=== PATIENT | male | born 1960 | race Caucasian/White ===

== ENCOUNTER 2022-12-13 06:44 | Outpatient (OUT) | payer MEDICARE, MEDICAID, SELFPAY ==
[2022-12-13 07:22] LABS: Estimated Average Glucose 157 mg/dL; Glycohemoglobin A1C 7.1 % (4.5-6.2)
== END 2022-12-13 06:45 | disposition home or self-care (01) ==
PROVIDERS: PCP Family Medicine; Visit Provider Family Medicine
DX: E11.9 Type 2 diabetes mellitus without complications (principal)
CPT/HCPCS: 36415; 83036

== ENCOUNTER 2023-03-14 07:47 | Outpatient (OUT) | payer MEDICARE, MEDICAID, SELFPAY ==
[2023-03-14 08:13] LABS: Basophils Absolute Auto 0.1 10^3/uL (0.0-0.1); Eosinophils Absolute Auto 0.2 10^3/uL (0.0-0.7); Eosinophils Percent Auto 1.8 % (0.9-7.0); Hematocrit 37.7 % (42.0-54.0); Immature Granulocytes Abs Auto 0.02 10^3/uL (0.00-0.03); Immature Granulocytes Pct Auto 0.2 % (0.0-0.5); Lymphocytes Percent Auto 21.7 % (20.5-60.0); Mean Corpuscular HGB Conc 31.8 g/dL (29.9-35.2); Mean Corpuscular Volume 91.1 fL (80.0-94.0); Mean Platelet Volume 8.1 fL (9.5-13.5); Monocytes Absolute Auto 0.9 10^3/uL (0.3-0.8); Monocytes Percent Auto 9.7 % (1.7-12.0); Neutrophils Absolute Auto 5.9 10^3/uL (1.4-6.5); Neutrophils Percent Auto 65.6 % (43.0-75.0); Platelet Count 462 10^3/uL (150-450); Red Blood Count 4.14 10^6/uL (4.70-6.10); Red Cell Distribution Width 12.6 % (11.0-15.0); White Blood Count 9.1 10^3/uL (4.0-11.0)
[2023-03-14 09:04] LABS: Anion Gap 15.2; BUN Creatinine Ratio 17.5; Calcium 8.8 mg/dL (8.5-10.1); Carbon Dioxide 26.2 mmol/L (21.0-32.0); Chloride 103 mmol/L (98-107); Estimated GFR (African America >60 (>=60); Estimated GFR (Non-African Ame 58 (>=60); Glucose 101 mg/dL (74-106); Magnesium 2.2 mg/dL (1.8-2.4); Potassium 4.4 mmol/L (3.5-5.1); Sodium 140 mmol/L (136-145)
== END 2023-03-14 07:48 | disposition home or self-care (01) ==
PROVIDERS: PCP Family Medicine; Visit Provider Nurse Practitioner
DX: R42 Dizziness and giddiness (principal); I10 Essential (primary) hypertension; I48.91 Unspecified atrial fibrillation
CPT/HCPCS: 36415; 80048; 83735; 85025

== ENCOUNTER 2023-04-22 07:01 | Outpatient (RCR) | payer OTHER, MEDICAID, SELFPAY ==
--- NOTE | 2023-04-04 15:04 | CR1_ITS ---
[facility] Test Date: 2023-04-04 Pat Name: ROXANN JOHNSON Department: Room: - Gender: Male [employer]: : [id number] Requested By: THUY MCGREGOR Order Number: [id number] Lyndsey MD: THUY MCGREGOR Interpretive Statements Session Date: Electronically Signed On 04-05-2023 12:13:38 EST by THUY MCGREGOR
== END 2023-04-22 12:53 | disposition home or self-care (01) ==
LOC: CR 07:01
PROVIDERS: PCP Family Medicine; Visit Provider Internal Medicine
DX: I71.21 Aneurysm of the ascending aorta, without rupture (principal); Z95.2 Presence of prosthetic heart valve
CPT/HCPCS: 93798

== ENCOUNTER 2023-04-24 01:37 | Outpatient (RCR) | payer OTHER, SELFPAY | END 2023-05-22 17:32 | disposition home or self-care (01) | LOC: MM 01:37 | PROVIDERS: PCP Family Medicine; Visit Provider Internal Medicine | DX: Z51.81 Encounter for therapeutic drug level monitoring (principal); Z79.01 Long term (current) use of 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; Z95.2 Presence of prosthetic heart valve | CPT/HCPCS: 85610; G0463 ==

== ENCOUNTER 2023-05-23 03:39 | Outpatient (RCR) | payer OTHER, SELFPAY | END 2023-06-20 14:16 | disposition home or self-care (01) | LOC: MM 03:39 | PROVIDERS: PCP Family Medicine; Visit Provider Internal Medicine | DX: Z51.81 Encounter for therapeutic drug level monitoring (principal); Z79.01 Long term (current) use of 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; Z95.2 Presence of prosthetic heart valve | CPT/HCPCS: 85610; G0463 ==

== ENCOUNTER 2023-06-23 00:27 | Outpatient (RCR) | payer OTHER, SELFPAY | END 2023-07-22 18:03 | disposition home or self-care (01) | LOC: MM 00:27 | PROVIDERS: PCP Family Medicine; Visit Provider Internal Medicine | DX: Z51.81 Encounter for therapeutic drug level monitoring (principal); Z79.01 Long term (current) use of 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; Z95.5 Presence of coronary angioplasty implant and graft; Z95.2 Presence of prosthetic heart valve | CPT/HCPCS: 85610; G0463 ==

== ENCOUNTER 2023-07-09 09:20 | Outpatient (OUT) | payer OTHER, SELFPAY ==
--- OUTSIDE RECORDS SUMMARY | 2023-07-09 09:46 | XMS_ITS | CCD ---
Author Organization [facility] Care Team Providers Care Forensic Specialist Name Role Phone Unknown, Referring Provider Unavailable Unav ailable Unavailable Unavailable Reginaldo, Eugene Wills Unavailable SHAIKH Imelda ORTEGA Admitting Unavailable SHAIKH Imelda ORTEGA Attending Unavailable NADEREEric, DR EUGENE Wills Primary Care Unavailable SHAIKH Imelda ORTEGA Consulting Unavailable NEFCYCECILIO Consulting Unavailable NADSUE, DR EUGENE Wills Admitting Unavailable NADERER, DR EUGENE Wills Attending Unavailable NADERER, DR EUGENE Wills Primary Care Unavailable NADERER, DR EUGENE Wills Consulting Unavailable TRABOULSSI, DR FISHER Admitting Unavailab le TRABOULSSI, DR FISHER Attending Unavailab le NADERER, DR EUGENE Wills Primary Care Unavailable TRABOULSSI, DR FISHER Consulting Unavailab le NADERER, DR EUGENE Wills Admitting Unavailable NADERER, DR EUGENE Wills Attending Unavailable NADERER, DR EUGENE Wills Primary Care Unavailable NADERER, DR EUGENE Wills Consulting Unavailable MISC, DR PHAN Admitting Unavailable MISC, DR PHAN Attending Unavailable NADEREEric, DR EUGENE Wills Primary Care Unavailable [place], DR ADRI Hernandez Consulting Unavailable GLENROY .KATE Consulting Unavailable DEL VALLE ., DR AILYN Simpson Admitting Unavailable DEL VALLE ., DR AILYN Simpson Attending Unavailable NADERER, DR EUGENE Wills Primary Care Unavailable TIM .KATE Consulting Unavailable DEL VALLE ., DR AILYN Simpson Admitting Unavailable DEL VALLE ., DR AILYN iSmpson Attending Unavailable NADEREEric, DR EUGENE Wills Primary Care Unavailable DEL VALLE ., DR AILYN Simpson Consulting Unavailable DEL VALLE ., DR AILYN Simpson Admitting Unavailable DEL VALLE ., DR AILYN Simpson Attending Unavailable NADERER, DR EUGENE Wills Primary Care Unavailable TIM ., KATE Consulting Unavailable Traboulssi, Dr. iFsher Attending Unavaila ble Naderer, Dr. Eugene Barraza Primary Care Chelovai lable Logan, Dr. Fisher Referring Unavaila ble Traboulssi, Dr. Fisher Attending Unavaila ble Naderer, Dr. Eugene Barraza Primary Care Unavai lable Traboulcheco, Dr. Fisher Referring Unavaila ble Traboulssi, Dr. Fisher Attending Unavaila ble Naderer, Dr. Eugene Barraza Primary Care Chelovamarcus lable Logan, Dr. Fisher Referring Unavaila ble Naderer, Dr. Eugene Barraza Primary Care Chelovai lable Trabuziel, Dr. Fisher Attending Unavaila ble Traboulssi, Dr. Fisher Referring Unavaila ble Traboulssi, Dr. Fishre Referring Unavaila ble UNKNOWN, PCP Primary Care Unavailable Traboulssi, Dr. Fisher Attending Unavaila ble Naderer Eugene MENDES Primary Care Provider MATTHEW HOOD Attending EUGENE Norman Referring EUGENE Norman Primary Care Unavailable EUGENE MARISCAL Primary Care Physician EUGENE MARISCAL Attending Unavailable EUGENE MARISCAL Attending Unavailable FREDDY MCLEOD Attending Unavailable Medications Current Medications Medication Drug Class(es) Dates Sig (Normalized) Sig (Original) allopurinol 100 mg oral tablet (20 sources) Xanthine Oxidase Inhibitor Start: 01-25-2019 take 1 tablet by mouth once daily allopurinol 100 mg Tab 100 mg = 1 tab(s), Oral, Daily, Refills(s) 0 Start Date: 10/26/19 Status: Ordered aspirin 81 mg delayed release oral tablet (6 sources) Platelet Aggregation Inhibitor, Nonsteroidal Anti-inflammatory Drug Start: 10-26-2019 take 1 tablet by mouth once daily aspirin 81 mg Oral EC Tab 81 mg = 1 tab(s), Oral, Daily, Refills(s) 0 Start Date: 10/26/19 Status: Ordered carvedilol 6.25 mg oral tablet (3 sources) alpha-Adrenergic Etta, beta-Adrenergic Etta Start: 03-28-2023 take 1 tablet by mouth in the morning, then take 1 tablet by mouth at bedtime carvediloL (COREG) 6.25 mg tablet Take 1 tablet (6.25 mg total) by mouth in the morning and 1 tablet (6.25 mg total) before bedtime. 180 tablet 3 03/28/2023 Active glipiZIDE er 5 mg 24 hr extended release oral tablet (12 sources) Sulfonylurea take 1 tablet by mouth every twenty-four hours in the morning glipiZIDE (GLUCOTROL XL) 5 mg 24 hr tablet Take 1 tablet (5 mg total) by mouth in the morning. 0 Active take 1 tablet by mouth once robert y glipiZIDE 5 MG Oral Tablet TAKE 1 TABLET DAILY DIRECTED. Quantity: 0 Refills: 0 Ordered: 16-Oct-2021 DO Active lisinopril 40 mg oral tablet (16 sources) Angiotensin Converting Enzyme Inhibitor Start: 10-26-2019 take 1 tablet by mouth once daily lisinopril 40 mg Tab 40 mg = 1 tab(s), Oral, Daily, Refills(s) 0 Start Date: 10/26/19 Status: Ordered 24 hr metFORMIN hydrochloride 500 mg extended release oral tablet (20 sources) Biguanide Start: 12-11-2022 take 1 tablet by mouth every twenty-four hours in the morning metFORMIN XR (GLUCOPHAGE XR) 500 mg 24 hr tablet Take 1 tablet (500 mg total) by mouth in the morning. 0 12/11/2022 Active Start: 01-19-2021 MetFORMIN (Eqv -Fortamet) 500 mg oral tablet, extended release Refills(s) 0 Start Date: 01/19/21 Status: Ordered Start: 12-08-2019 take 1 tablet by tatianna th every twenty-four hours metFORMIN HCl ER 500 MG Oral Tablet Extended Release 24 Hour Quantity: 30 Refills: 0 Ordered: 06-May-2020 DO Start : 08-Dec-2019 Complete ONETOUCH ULTRA2 METER misc (5 sources) Start: 12-08-2019 ONETOUCH ULTRA 2 METER misc USE TO CHECK GLUCOSE ONCE DAILY 0 12/08/2019 Active warfarin sodium 4 mg oral tablet (10 sources) Vitamin K Antagonist Start: 03-04-2023 take 1 tablet by mouth once daily warfarin (COUMADIN) 4 mg tablet 4 milligrams p.o. daily, check PT INR as directed, dose may vary 60 tablet 0 03/04/2023 Active Start: 12-02-2019 Warfarin Sodiu m 5 MG Oral Tablet Quantity: 60 Refills: 0 Ordered: 31-Jan-2020 DO Start : 02-Dec-2019 Complete Start: 10-26-2019 warfarin 5 mg Tab See Instructions, Refills(s) 0 Start Date: 10/26/19 Status: Ordered Completed/Discontinued Medications Medication Drug Class(es) Dates Sig (Normalized) Sig (Original) acetaminophen 325 mg / HYDROcodone bitartrate 5 mg oral tablet (4 sources) Opioid Agonist Start: 08-23-2020 HYDROcodone-Acetami nophen 5-325 MG Oral Tablet Quantity: 20 Refills: 0 Ordered: 23-Aug-2020 DO Start : 23-Aug-2020 Complete amiodarone hydrochloride 200 mg oral tablet (3 sources) Antiarrhythmic Start: 03-04-2023 End: 04-09-2023 take 2 tablets by mouth twice daily, then take 1 tablet by mouth once daily amiodarone (PACERONE) 200 mg tablet Take 2 tablets (400 mg total) by mouth 2 (two) times a day for 6 days, THEN 1 tablet (200 mg total) daily for 30 days. 54 tablet 0 03/04/2023 03/28/2023 Discontinued (Dose adjustment) End: 03-28-2023 take 1 tablet by mouth in the morning amiodarone (PACERONE) 200 mg tablet Take 1 tablet (200 mg total) by mouth in the morning. 0 03/28/2023 Discontinued amoxicillin 500 mg / clavulanate 125 mg oral tablet (4 sources) Penicillin-class Antibacterial Start: 09-14-2020 Amoxicillin-Pot Clavulanate 500-125 MG Oral Tablet Quantity: 42 Refills: 0 Ordered: 14-Sep-2020 DO Start : 14-Sep-2020 Complete apixaban 5 mg oral tablet (15 sources) Factor Xa Inhibitor Start: 02-18-2022 take 1 tablet by mouth twice daily Eliquis 5 MG Oral Tablet TAKE 1 TABLET BY MOUTH TWICE DAILY Quantity: 180 Refills: 3 Ordered: 21-May-2022 Phillip Ford MD Start : 18-Feb-2022 Active take 1 tablet by mouth twice cindy ly Eliquis 5 MG Oral Tablet TAKE 1 TABLET BY MOUTH TWICE DAILY. Quantity: 180 Refills: 3 Ordered: 26-Feb-2021 Phillip Ford MD Active atenolol 100 mg oral tablet (20 sources) beta-Adrenergic Etta Start: 09-12-2022 take 1 tablet by mouth once daily Atenolol 100 MG Oral Tablet TAKE 1 TABLET DAILY. Quantity: 90 Refills: 3 Ordered: 12-Sep-2022 Phillip Ford MD Start : 12-Sep-2022 Active CORRECT ORDER IS 100 MG TABLET REDUCE FROM 150 MG TO100 MG Start: 12-24-2019 Atenolol 50 MG Oral Tablet Quantity: 60 Refills: 0 Ordered: 24-Apr-2020 DO Start : 24-Dec-2019 Complete Start: 10-26-2019 take 1 tablet by tatianna th in the morning, then take 0.5 tablet by mouth in the evening Atenolol 100 MG Oral Tablet take 1 tablet in the am and 1/2 tablet in the pm Quantity: 135 Refills: 3 Ordered: 10-Jul-2022 Phillip Ford MD Start : 10-Jul-2022 Active 1 in am and 1/2 in pm atorvastatin 10 mg oral tablet (19 sources) HMG-CoA Reductase Inhibitor Start: 06-20-2021 take 1 tablet by mouth once daily Atorvastatin Calcium 10 MG Oral Tablet take 1 tablet by mouth once daily Quantity: 90 Refills: 3 Ordered: 12-Jun-2022 Phillip Ford MD Start : 20-Jun-2021 Active benzonatate 200 mg oral capsule (4 sources) Non-narcotic Antitussive Start: 04-13-2020 Benzonatate 200 MG Oral Capsule Quantity: 30 Refills: 0 Ordered: 14-Apr-2020 DO Start : 13-Apr-2020 Complete betamethasone 0.5 mg/ml / clotrimazole 10 mg/ml topical cream (4 sources) Azole Antifungal, Corticosteroid Start: 01-04-2021 Clotrimazole-Betame thasone 1-0.05 % External Cream Quantity: 15 Refills: 0 Ordered: 04-Jan-2021 DO Start : 04-Jan-2021 Complete cefdinir 300 mg oral capsule (4 sources) Cephalosporin Antibacterial Start: 03-30-2020 Cefdinir 300 MG Oral Capsule Quantity: 20 Refills: 0 Ordered: 30-Mar-2020 DO Start : 30-Mar-2020 Complete cholecalciferol 0.05 mg oral capsule (8 sources) Vitamin D take 1 capsule by mouth once daily Vitamin D3 50 MCG (2000 UT) Oral Capsule TAKE 1 CAPSULE Daily Quantity: 0 Refills: 0 Ordered: 12-Jan-2021 DO Active cyclobenzaprine hydrochloride 10 mg oral tablet (4 sources) Muscle Relaxant Start: 09-14-2020 Cyclobenzaprine HCl - 10 MG Oral Tablet Quantity: 60 Refills: 0 Ordered: 14-Sep-2020 DO Start : 14-Sep-2020 Complete ibuprofen 600 mg oral tablet (8 sources) Nonsteroidal Anti-inflammatory Drug Start: 09-14-2020 Ibuprofen 600 MG Oral Tablet Quantity: 30 Refills: 0 Ordered: 14-Sep-2020 DO Start : 14-Sep-2020 Complete Start: 08-23-2020 Ibuprofen 800 MG Oral Tablet Quantity: 30 Refills: 0 Ordered: 23-Aug-2020 DO Start : 23-Aug-2020 Complete lidocaine 40 mg/ml topical cream (4 sources) Antiarrhythmic, Amide Local Anesthetic Start: 09-14-2020 Lidocaine 4 % External Cream Quantity: 30 Refills: 0 Ordered: 23-Sep-2020 DO Start : 14-Sep-2020 Complete metoprolol tartrate 50 mg oral tablet (2 sources) beta-Adrenergic Etta Start: 03-04-2023 End: 04-03-2023 take 1 tablet by mouth in the morning, then take 1 tablet by mouth at bedtime metoprolol tartrate (LOPRESSOR) 50 mg tablet Take 1 tablet (50 mg total) by mouth in the morning and 1 tablet (50 mg total) before bedtime. Do all this for 30 days. 60 tablet 0 03/04/2023 03/28/2023 Discontinued omeprazole 20 mg delayed release oral capsule (6 sources) Proton Pump Inhibitor Start: 10-26-2019 take 1 capsule by mouth once daily predniSONE 50 mg oral tablet (4 sources) Start: 05-01-2020 predniSONE 50 MG Oral Tablet Quantity: 5 Refills: 0 Ordered: 01-May-2020 DO Start : 01-May-2020 Complete Problems Active Problems Problem Classification Problem Date Documented Date Episodic/Chronic Abdominal hernia (5 sources) Umbilical hernia; Translations: [Umbilical hernia without obstruction or gangrene] Onset: 02-27-2023 02-27-2023 Episodic Aortic; peripheral; and visceral artery aneurysms (20 sources) Dilatation of aorta; Translations: [Aortic ectasia, unspecified site] Onset: 11-19-2022 Resolved: 03-28-2023 11-19-2022 Chronic Cardiac dysrhythmias (20 sources) Paroxysmal atrial fibrillation; Translations: [Atrial fibrillation] Onset: 04-16-2019 Resolved: 05-08-2023 02-27-2023 Chronic Cardiac dysrhythmias (13 sources) Sinus bradycardia; Translations: [Other specified cardiac dysrhythmias] Episodic Diabetes mellitus with complications (4 sources) Type 2 diabetes mellitus with hyperglycemia; Translations: [TYPE 2 DM W/HYPERGLYCEMIA] Onset: 06-11-2022 Chronic Diabetes mellitus without complication (8 sources) Diabetes mellitus; Translations: [Diabetes mellitus without mention of complication, type II or unspecified type, not stated as uncontrolled] Chronic Disorders of lipid metabolism (11 sources) Hyperlipidemia; Translations: [Other and unspecified hyperlipidemia] Onset: 10-17-2021 Chronic Esophageal disorders (6 sources) Gastroesophageal reflux disease; Translations: [Gastro-esophageal reflux disease without esophagitis] Onset: 04-25-2017 02-27-2023 Chronic Essential hypertension (20 sources) Benign essential hypertension; Translations: [Benign essential hypertension] Onset: 04-25-2017 02-27-2023 Chronic Gout and other crystal arthropathies (20 sources) Gout; Translations: [Gout, unspecified] Onset: 04-25-2017 02-27-2023 Chronic Heart valve disorders (13 sources) Aortic incompetence, non-rheumatic ; Translations: [Nonrheumatic aortic (valve) insufficiency] Onset: 11-19-2022 Resolved: 05-08-2023 12-09-2022 Chronic Nutritional deficiencies (6 sources) Vitamin D deficiency; Translations: [Vitamin D deficiency, unspecified] Onset: 04-25-2017 02-27-2023 Chronic Osteoarthritis (11 sources) Unilateral primary osteoarthritis, right hip; Translations: [Osteoarthritis] Onset: 04-25-2017 Chronic Other aftercare (15 sources) Drug therapy finding; Translations: [Long-term (current) use of other medications] Episodic Other aftercare (1 source) 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; Translations: [OTH INSTRUMENT TECHNICIAN HELPER CURRENT DRUG THERAPY] Onset: 06-15-2022 Episodic Other aftercare (6 sources) Long-term current use of anticoagulant; Translations: [terminal supervisor (current) use of 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] Onset: 02-27-2023 02-27-2023 Episodic Other aftercare (1 source) senior living (current) use of 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; Translations: [senior living (current) use of 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] Onset: 02-27-2023 Episodic Other injuries and conditions due to external causes (5 sources) At low risk for fall; Translations: [History of falling] Onset: 02-27-2023 02-27-2023 Episodic Other lower respiratory disease (4 sources) Respiratory disorder, unspecified; Translations: [RESPIRATORY DISORDER UNSPECIFIED] Onset: 03-19-2022 Episodic Other nervous system disorders (4 sources) Other specified mononeuropathies; Translations: [OTHER SPECIFIED MONONEUROPATHIES] Onset: 07-13-2021 Chronic Other nutritional; endocrine; and metabolic disorders (20 sources) Body mass index 30+ - obesity; Translations: [Obesity, unspecified] Onset: 02-27-2023 02-27-2023 Chronic Other nutritional; endocrine; and metabolic disorders (7 sources) Obesity; Translations: [Obesity, unspecified] Chronic Other nutritional; endocrine; and metabolic disorders (1 source) Obesity, unspecified; Translations: [OBESITY UNSPECIFIED] Onset: 06-15-2022 Chronic Other nutritional; endocrine; and metabolic disorders (1 source) Body mass index (BMI) 30.0-30.9, adult; Translations: [BODY MASS INDEX BMI 30.0-30.9 ADULT] Onset: 06-15-2022 Chronic Other screening for suspected conditions (not mental disorders or infectious disease) (1 source) Encounter for screening for malignant neoplasm of prostate; Translations: [ENC SCREEN MALIG NEOPLASM PROSTATE] Onset: 06-15-2022 Episodic Residual codes; unclassified (6 sources) Sleep apnea; Translations: [Sleep apnea, unspecified] Onset: 04-25-2017 02-27-2023 Chronic Spondylosis; intervertebral disc disorders; other back problems (6 sources) Spondylosis without myelopathy or radiculopathy, lumbar region; Translations: [Other spondylosis with radiculopathy, cervical region] Onset: 07-12-2021 Chronic Unclassified (1 source) Aneurysm of the ascending aorta, without rupture; Translations: [Aneurysm of the ascending aorta, without rupture] Onset: 11-19-2022 Past or Other Problems Problem Classification Problem Date Documented Da te Episodic/Chronic Mood disorders (5 sources) Mood disorders Onset: 02-28-2023 02-28-2023 Nonspecific chest pain (5 sources) Chest pain; Translations: [Chest pain, unspecified] Onset: 11-19-2022 11-19-2022 Episodic Other lower respiratory disease (5 sources) Dyspnea; Translations: [Shortness of breath] Onset: 11-19-2022 12-09-2022 Episodic Other non-traumatic joint disorders (5 sources) Pain in right hip; Translations: [PAIN IN RIGHT HIP] Onset: 08-02-2021 Episodic Unclassified (15 sources) Never smoked tobacco; Translations: [Never a smoker] Results Test Name Value Interpretation Reference Range Facility Physician Orderon 06-18-2023 Physician Order [id number]# 1.00TIFF Normal [facility] [id number] 02-28-2023 [id number] DATE OF VISIT: PREOPERATIVE DIAGNOSIS: Severe aortic insufficiency, aortic root ascending aortic arch aneurysm, dyspnea on exertion, chest pain. POSTOPERATIVE DIAGNOSIS: Severe aortic insufficiency, aortic root ascending aortic arch aneurysm, dyspnea on exertion, chest pain, trileaflet aortic valve with severe prolapse of the noncoronary cusp. OPERATION PERFORMED: Aortic valve replacement, aortic replacement, modified Bentall procedure utilizing a on- X mechanical valve conduit, ascending aortic arch replacement utilizing a 28 mm Gelweave graft, ligation left atrial appendage utilizing a 45 mm Medtronic Penditure Clips. SURGEON: David Black MD. ACIDIZER: FIDE Cueva ATTENDING ANESTHESIOLOGIST: ATTENDING PRIMARY CARE PHYSICIAN: Eugene Mariscal MD ATTENDING CARDIOLOGISTS: Fredi Lechuga MD and Dr. Matthew Renteria. ANESTHESIA: General via endotracheal tube. INDICATIONS FOR PROCEDURE AND FINDINGS AT OPERATION: Mr. Johnson is a 62-year-old white male who presented with dyspnea on exertion and occasional chest pressure. Cardiac evaluation demonstrated the presence of severe aortic insufficiency with an aortic root ascending aortic arch aneurysm. Maximal dimension was approximately 5.3 cm. Coronary angiography demonstrated no significant coronary obstructive lesions. Left ventricular systolic function is well preserved. Estimated ejection fraction greater than 55%. At the time of surgery, Mr. Thomas assisted me fully in the performance of the aortic valve, aortic root ascending arch replacement. The ascending aorta was markedly enlarged as was the aortic root. There was significant cephalad displacement of the coronary ostia. The aortic valve was trileaflet in nature, but prolapse of the noncoronary cusp. The distal ascending aorta tapered nicely below the innominate artery. There was grade 4/6 left ventricular hypertrophy. There was no evidence of an epicardial scar. DESCRIPTION OF PROCEDURE: With the patient in the supine position, after sterile prep and drape, an adequate level of general endotracheal anesthesia was established, a primary median sternotomy incision was made. Following systemic heparinization and attainment of an adequate activated clotting time, cardiopulmonary bypass established via distal transverse aortic arch cannulation and single venous 2- stage right atrial cannulation for a total of 105 minutes at 2.2 L/min per sq meter at coldest water. Once the heart fibrillated, the distal ascending aortic arch was crossclamped. The ascending aorta was transected above the sinotubular junction and 1250 cc of [place] cardioplegia was directly infused into the coronary ostia to maintain cardiac arrest and for myocardial protection. The left atrial appendage was ligated at its base utilizing a 45 mm Penditure Clip. The aortic valve leaflets were carefully resected. The right and left coronary ostial buttons were then next mobilized out of the aortic root with generous portions of remnant aortic root wall left attached. The left ventricular outflow tract was copiously irrigated with saline. The vast majority of the ascending aortic arch was resected. Pledgeted 2 Ethibond sutures were next placed circumferentially on the undersurface of the aortic annulus. The annulus was sized and a 27/29 on-X mechanical valve conduit was selected, washed, repaired, brought up onto the field and meticulously oriented. The previously placed aortic root sutures were then placed appropriately through the sewing ring of the valve conduit. The valve conduit was lowered into position and all valve sutures were tied utilizing the Cor-Knot device. The valve appeared to fit perfectly and function normally. A 7 mm hole was made in the posterior aspect of the left sinus of Valsalva graft for anastomosis of the left main coronary artery. The left main coronary was meticulously anastomosed to the sinus of Valsalva graft utilizing a running 4-0 Prolene suture technique. Care was taken to make certain that the left main coronary was too distorted and all valve and suture material were kept well away from the ostium of the left main coronary. A 5 mm hole was made in the anterior portion of the sinus of Valsalva graft for anastomosis of the right coronary artery. The right coronary was meticulously anastomosed to the sinus of Valsalva graft utilizing a running 4-0 Prolene suture technique. Care was again taken to make certain there was no kinking or distortion of the right coronary artery. The graft was trimmed appropriately for anastomosis to the distal ascending aortic arch. This anastomosis was completed utilizing a running 4-0 Prolene suture technique after reinforcement of the distal arch with a Sylvester felt strip. A vent was placed in the ascending aortic arch graft. The left ventricle and ascending aorta were carefully de-air (more content not included)... Normal [facility] Office Visit (Cardiology)on 09-12-2022 Follow-up visit Diagnoses/Problems Assessed Paroxysmal atrial fibrillation (427.31) (I48.0) Aortic dilatation (447.70) (I77.819) Essential hypertension, benign (401.1) (I10) High risk medication use (V58.69) (Z79.899) Never a smoker Hyperlipemia (272.4) (E78.5) Palpitations (785.1) (R00.2) Sinus bradycardia (427.89) (R00.1) Diabetes mellitus (250.00) (E11.9) Class 2 obesity with body mass index (BMI) of 35.0 to 35.9 in adult (278.00,V85.35) (E66.9,Z68.35) Gout (274.9) (M10.9) Orders Class 2 obesity with body mass index (BMI) of 35.0 to 35.9 in adult Healthy Weight Tips; Status:Complete - Retrospective Authorization; Done: 12Sep2022 Some eating tips that can help you lose weight.; Status:Complete - Retrospective Authorization; Done: 12Sep2022 Essential hypertension, benign, Paroxysmal atrial fibrillation Start: Atenolol 100 MG Oral Tablet; TAKE 1 TABLET DAILY Basic Metabolic Panel; Status:Active - Retrospective Authorization; Requested for:[id number]; SocHx: Never a smoker Tobacco Use Screening; Status:Complete; Done: [id number] Patient Instructions Please bring all medicines, vitamins, and herbal supplements with you when you come to the office. Prescriptions will not be filled unless you are compliant with your follow up appointments or have a follow up appointment scheduled as per instruction of your physician. Refills should be requested at the time of your visit. Reduce atenolol from 150 mg to 100 mg DAILY CTA chest-9 months Follow up in 9 months Chief Complaint GUSTAVO JOHNSON is being seen for a 6 month follow-up of. History of Present Illness Patient is here for follow-up continue management for history of dilated aortic root, paroxysmal atrial fibrillation, hypertension and obesity. Since last time I saw him he describes symptoms of mild fatigue and tiredness but denies any chest pain, lightheadedness, dizziness or syncope. Patient remains reasonably active. His heart rate today is in the 50s. Assessment 1. Mildly dilated aortic root at 4.[address] scan done here and had been stable over the last several years we will plan on repeating next year 2. History of paroxysmal atrial fibrillation underwent SIL guided cardioversion and no recurrence time he was describing some palpitation but monitor failed to demonstrate any arrhythmia 3. Long-term anticoagulation with place tolerating that well 4. Hypertension controlled 5. Diabetes mellitus 6. Obesity minimal weight gain 7. Hyperlipidemia is controlled. Recent lab noted and reviewed with him 8. Palpitation resolved 9. Mild sinus bradycardia. Patient describes some symptoms of fatigue Plan 1. I recommend to the patient to please his atenolol to 100 mg daily considering his symptoms of fatigue and tiredness 2. Risk, benefits alternative anticoagulation reviewed with patient he understood and agreed 3. Patient was counseled regarding losing weight, exercise and dietary modification 4. I reviewed with him the results of his recent laboratory data 5. I with his Holter monitor 6. Follow-up in 9 months with plan to repeat his CTA of the chest to assess his aortic root 7. Patient advised to notify me with change in cardiac status or symptoms and I advised him to monitor his blood pressure closely Surgical History Problems History of Cardiac catheterization History of Complete colonoscopy History of Hernia repair Current Meds Medication NameInstruction Allopurinol 100 MG Oral TabletTAKE 1 TABLET DAILY. Atenolol 100 MG Oral Tablettake 1 tablet in the am and 1/2 tablet in the pm Atorvastatin Calcium 10 MG Oral Tablettake 1 tablet by mouth once daily Eliquis 5 MG Oral TabletTAKE 1 TABLET BY MOUTH TWICE DAILY glipiZIDE 5 MG Oral TabletTAKE 1 TABLET DAILY DIRECTED. Lisinopril 40 MG Oral TabletTAKE 1 TABLET EVERY DAY metFORMIN HCl - 500 MG Oral TabletTAKE 1 TABLET DAILY. Allergies Medication No Known Drug Allergies Recorded By: Minnie Dunne; 01/12/2021 10:30:51 AM Social History Problems Caffeine use (V49.89) (Z78.9) decaf coffee, caffeine free soda Never a smoker No alcohol use No illicit drug use Review of Systems Constitutional: feeling tired. Cardiovascular: no intermittent leg claudication, no chest pain and as noted in HPI. Respiratory: no cough and no shortness of breath. Gastrointestinal: no change in bowel habits and no blood in stools. Integumentary: no skin rashes. Neurological: no seizures and no frequent falls. All other systems have been reviewed and are negative for complaint. Vitals Vital Signs Recorded: 12Sep2022 10:11AM Heart Rate52, Apical Mdoozrtj891, LUE, Sitting Ordmnzocd93, LUE, Sitting Height5 ft 11 in Krnkfc212 lb BMI Cdgawvpptk86.84 kg/m2 BSA Calculated2.35 Tobacco Useb) No PHQ-2 #1. Over the last 2 weeks have you felt down, depressed or hopeless? (If yes, answer PHQ-9 below)No PHQ-2 #2. Over the last 2 weeks have you felt little interest or pleasure in (more content not included)... Normal [facility] Physician Orderon 09-12-2022 Physician Order [id number] Normal [facility] Tobacco Screening.on 023 Adult depression screening assessment No [facility] coComment 600 DO Work Phone: Fall risk assessment a) No falls within the last year [facility] coComment 600 DO Work Phone: Tobacco use status CPHS b) No [facility] coComment 600 DO Work Phone: CBC AUTO DIFFon 06-11-2022 BASO # 0.1 103/ul Normal 0.0-0.1 [facility] Comment on above: Performed By: #### C BC #### [facility] [address] [place] [address] Dr. Doug Payne Basophils/100 WBC (Bld) 1.2 % Normal 0.2-2.0 [facility] Comment on above: Performed By: #### C BC #### [facility] [address] [place] [address] Dr. Doug Payne EO # 0.4 103/ul Normal 0.0-0.7 [facility] Comment on above: Performed By: #### C BC #### [facility] [address] [place] [address] Dr. Doug Payne Eosinophils/100 WBC (Bld) 5.5 % Normal 0.9-7.0 [facility] Comment on above: Performed By: #### C BC #### [facility] [address] [place] [address] Dr. Doug Payne Erythrocyte distribution width (RBC) [Ratio] 13.4 % Normal 11.0-15.0 [facility] Comment on above: Performed By: #### C BC #### [facility] [address] [place] [address] Dr. Doug Payne Hematocrit (Bld) [Volume fraction] 42.2 % Normal 42.0-54.0 [facility] Comment on above: Performed By: #### C BC #### [facility] [address] [place] [address] Dr. Doug Payne Hemoglobin (Bld) [Mass/Vol] 14.4 g/dL Normal 14.0-18.0 [facility] Comment on above: Performed By: #### C BC #### [facility] [address] [place] [address] Dr. Doug Payne IG # 0.02 10e3/ul Normal 0.00-0.03 [facility] Comment on above: Performed By: #### C BC #### [facility] [address] [place] [address] Dr. Doug Payne IG % 0.3 % Normal 0.0-0.5 [facility] Comment on above: Performed By: #### C BC #### [facility] [address] [place] [address] Dr. Doug Payne LYMPH # 2.8 103/ul Normal 1.2-3.8 [facility] Comment on above: Performed By: #### C BC #### [facility] [address] [place] [address] Dr. Doug Payne Lymphocytes/100 WBC (Bld) 42.8 % Normal 20.5-60.0 [facility] Comment on above: Performed By: #### C BC #### [facility] [address] [place] [address] Dr. Doug Payne MANUAL DIFF REQ NO [facility] Comment on above: Performed By: #### C BC #### [facility] [address] [place] [address] Dr. Doug Payne MCH (RBC) [Entitic mass] 30.2 pg Normal 25.9-34.0 [facility] Comment on above: Performed By: #### C BC #### [facility] [address] [place] [address] Dr. Doug Payne MCHC (RBC) [Mass/Vol] 34.1 g/dL Normal 29.9-35.2 [facility] Comment on above: Performed By: #### C BC #### [facility] [address] [place] [address] Dr. Doug Payne MCV (RBC) [Entitic vol] 88.5 fL Normal 80.0-94.0 [facility] Comment on above: Performed By: #### C BC #### [facility] [address] [place] [address] Dr. Doug Payne MONO # 0.7 103/ul Normal 0.3-0.8 [facility] Comment on above: Performed By: #### C BC #### [facility] [address] [place] [address] Dr. Doug Payne Monocytes/100 WBC (Bld) 10.8 % Normal 1.7-12.0 [facility] Comment on above: Performed By: #### C BC #### [facility] [address] [address] [address] Doug Payne NEUT # 2.6 103/ul Normal 1.4-6.5 [facility] Comment on above: Performed By: #### C BC #### [facility] [address] [address] [address] Doug Payne Neutrophils/100 WBC (Bld) 39.4 % Critically low 43.0-75.0 [facility] Comment on above: Performed By: #### C BC #### [facility] [address] [address] [address] Doug Payne Platelet mean volume (Bld) [Entitic vol] 9.0 fL Critically low 9.5-13.5 [facility] Comment on above: Performed By: #### C BC #### [facility] [address] [place] [address] Dr. Doug Payne PLT 207 103/ul Normal 150-450 [facility] Comment on above: Performed By: #### C BC #### [facility] [address] [address] [address] Doug Payne RBC 4.77 106/ul Normal 4.70-6.10 [facility] Comment on above: Performed By: #### C BC #### [facility] [address] [address] [address] Doug Payne WBC 6.5 103/ul Normal 4.0-11.0 [facility] Comment on above: Performed By: #### C BC #### [facility] [address] [address] [address] Doug Payne GLYCOHEMOGLOBIN A1Con 2022 ADA RECOMMENDATION SEE BELOW Normal [facility] Comment on above: Result Comment: ADA RECOMMENDED LIMIT 4.0 - 6.0 ADA THERAPEUTIC TARGET < 7.0 ACTION SUGGESTED > 7.0 Performed By: #### A 1C ####[facility] [address] [address]Dr. Doug Payne Glucose [Mass/Vol] 160 mg/dL Normal [facility] Comment on above: Performed By: #### A 1C ####[facility] [address] [place], [place] [address]HeDr. Doug Payne HbA1c (Bld) [Mass fraction] 7.2 % Critically high 4.5-6.2 [facility] Comment on above: Performed By: #### A 1C ####[facility] [address] [place], [place] [address]JlDr. Doug Payne LIPID PROFILEon 06-11-2022 CHOL-HDL RATIO NORM SEE BELOW [facility] Comment on above: Result Comment: 3.3 - 4.4 LOW RISK 4.4 - 7.1 AVERAGE RISK 7.1 - 11.0 MODERATE RISK >11.0 HIGH RISK Performed By: #### T SH, LIPID, LIVER, BMP #### [facility] [address] [address] [address] Doug Payne Cholesterol [Mass/Vol] 121 mg/dL Normal <=200 [facility] Comment on above: Performed By: #### T SH, LIPID, LIVER, BMP #### [facility] [address] [address] [address] Doug Payne Cholesterol in HDL [Mass/Vol] 29 mg/dL Critically low 40-60 [facility] Comment on above: Performed By: #### T SH, LIPID, LIVER, BMP #### [facility] [address] [address] [address] Doug Payne Cholesterol in LDL [Mass/Vol] 68.4 mg/dL Normal [facility] Comment on above: Performed By: #### T SH, LIPID, LIVER, BMP #### [facility] [address] [address] [address] Doug Payne Cholesterol.total/C holesterol in HDL [Mass ratio] 4.2 {ratio} Normal [facility] Comment on above: Performed By: #### T SH, LIPID, LIVER, BMP #### [facility] [address] [address] [address] Doug Payne HDL NORMAL > or = 60 mg/dl - LO W CARDIOVASCULAR RISK <40 mg/dl - HIGH CARDIOVASCULAR RISK Normal [facility] Comment on above: Performed By: #### T SH, LIPID, LIVER, BMP #### [facility] [address] [address] [address] Doug Payne LDL CALC NORMAL SEE BELOW [facility] Comment on above: Result Comment: <100 mg/dl OPTIMAL 100 - 129 mg/dl NEAR OR ABOVE OPTIMAL 130 - 159 mg/dl BORDERLINE HIGH 160 - 189 mg/dl HIGH >190 mg/dl VERY HIGH Performed By: #### T SH, LIPID, LIVER, BMP #### [facility] [address] [address] [address] Doug Payne Triglyceride [Mass/Vol] 118 mg/dL Normal <=150 [facility] Comment on above: Performed By: #### T SH, LIPID, LIVER, BMP #### [facility] [address] [address] [address] Doug Payne VLDL CALC 23.6 mg/dL Normal [facility] Comment on above: Performed By: #### T SH, LIPID, LIVER, BMP #### [facility] [address] [address] [address] Doug Payne LIVER PROFILEon 06-11-2022 Albumin [Mass/Vol] 4.0 g/dL Normal 3.4-5.0 [facility] Comment on above: Performed By: #### T SH, LIPID, LIVER, BMP #### [facility] [address] [address] [address] Doug Payne Albumin/Globulin [Mass ratio] 1.3 {ratio} Normal [facility] Comment on above: Performed By: #### T SH, LIPID, LIVER, BMP #### [facility] [address] [address] [address] Doug Payne ALP [Catalytic activity/Vol] 65 U/L Normal 46-116 [facility] Comment on above: Performed By: #### T SH, LIPID, LIVER, BMP #### [facility] [address] [address] [address] Doug Payne ALT [Catalytic activity/Vol] 36 U/L Normal 16-63 [facility] Comment on above: Performed By: #### T SH, LIPID, LIVER, BMP #### [facility] [address] [address] [address] Doug Payne AST [Catalytic activity/Vol] 24 U/L Normal 15-37 [facility] Comment on above: Performed By: #### T SH, LIPID, LIVER, BMP #### [facility] [address] [address] [address] Doug Payne BILI, CONJUGATED 0.1 mg/dL Normal 0.0-0.2 [facility] Comment on above: Performed By: #### T SH, LIPID, LIVER, BMP #### [facility] [address] [address] [address] Doug Payne Bilirubin [Mass/Vol] 0.3 mg/dL Normal 0.2-1.0 [facility] Comment on above: Performed By: #### T SH, LIPID, LIVER, BMP #### [facility] [address] [address] [address] Doug Payne Globulin (S) [Mass/Vol] 3.2 g/dL Normal [facility] Comment on above: Performed By: #### T SH, LIPID, LIVER, BMP #### [facility] [address] [address] [address] Doug Payne Protein [Mass/Vol] 7.2 g/dL Normal 6.4-8.2 [facility] Comment on above: Performed By: #### T SH, LIPID, LIVER, BMP #### [facility] [address] [address] [address] Doug Payne MICROALBUMIN, RAND URon 03-2 mALB 1.5 mg/L Normal <=30.0 [facility] Comment on above: Performed By: #### M ALBR ####[facility] [address] [address]Dr. Doug Payne PROF CHEM 8 (BAS METB)on Anion gap [Moles/Vol] 14.1 mmol/L Normal [facility] Comment on above: Performed By: #### T SH, LIPID, LIVER, BMP #### [facility] [address] [address] [address] Doug Payne Calcium [Mass/Vol] 9.1 mg/dL Normal 8.5-10.1 [facility] Comment on above: Performed By: #### T SH, LIPID, LIVER, BMP #### [facility] [address] [address] [address] Doug Payne Chloride [Moles/Vol] 105 mmol/L Normal 98-107 [facility] Comment on above: Performed By: #### T SH, LIPID, LIVER, BMP #### [facility] [address] [address] [address] Doug Payne CO2 [Moles/Vol] 25.0 mmol/L Normal 21.0-32.0 [facility] Comment on above: Performed By: #### T SH, LIPID, LIVER, BMP #### [facility] [address] [place] [address] Dr. Doug Payne Creatinine [Mass/Vol] 1.16 mg/dL Normal 0.70-1.30 [facility] Comment on above: Performed By: #### T SH, LIPID, LIVER, BMP #### [facility] [address] [place] [address] Dr. Doug Payne EGFR-AF AZERBAIJANI >60 Normal >=60 [facility] Comment on above: Performed By: #### T SH, LIPID, LIVER, BMP #### [facility] [address] [place] [address] Dr. Doug Payne EGFR-NON AF AZERBAIJANI >60 Normal >=60 [facility] Comment on above: Performed By: #### T SH, LIPID, LIVER, BMP #### [facility] [address] [address] [address] Doug Payne Glucose [Mass/Vol] 143 mg/dL Critically high 74-106 [facility] Comment on above: Performed By: #### T SH, LIPID, LIVER, BMP #### [facility] [address] [address] [address] Doug Payne Potassium [Moles/Vol] 4.1 mmol/L Normal 3.5-5.1 [facility] Comment on above: Performed By: #### T SH, LIPID, LIVER, BMP #### [facility] [address] [address] [address] Doug Payne Sodium [Moles/Vol] 140 mmol/L Normal 136-145 [facility] Comment on above: Performed By: #### T JERONIMO, LIPID, LIVER, BMP #### [facility] [address] [address] [address] Doug Payne Urea nitrogen [Mass/Vol] 21.0 mg/dL Critically high 7.0-18.0 [facility] Comment on above: Performed By: #### T JERONIMO, LIPID, LIVER, BMP #### [facility] [address] [place] [address] Dr. Doug Payne Urea nitrogen/Creatinine [Mass ratio] 18.1 mg/mg Normal [facility] Comment on above: Performed By: #### T JERONIMO, LIPID, LIVER, BMP #### [facility] [address] [place] [address] Dr. Doug Payne TSHon 06-11-2022 TSH 2.075 uIU/mL Normal 0.358-3.740 [facility] Comment on above: Performed By: #### T JERONIMO, LIPID, LIVER, BMP #### [facility] [address] [place] [address] Dr. Doug Payne XR CHEST 2 Von 03-19-2022 XR CHEST 2 V EXAM: XR CHEST 2 V HISTORY: Disorder of respiratory system . Cough with upper respiratory infection for the past month. COMPARISON: 05/24/2021 TECHNIQUE: Upright PA and lateral chest x-ray FINDINGS: The heart is not enlarged and there is elongation of the aorta. There is no evidence of overt cardiac decompensation. The lung bases are now clear. No acute infiltrate, effusion or pneumothorax is identified. Flattening of the hemidiaphragms indicates COPD. Degenerative changes are seen in the spine. IMPRESSION: No acute infiltrate or evidence of cardiac decompensation. Flattening of the hemidiaphragms indicating COPD. There is been clearing of the lungs since the prior study. Electronically authenticated by: CECILIO OLVERA Date: 2022-03-19 17:32 Normal [facility] Office Visit (Cardiology)on 03-05-2022 Follow-up visit Diagnoses/Problems Assessed Paroxysmal atrial fibrillation (427.31) (I48.0) Hyperlipemia (272.4) (E78.5) High risk medication use (V58.69) (Z79.899) Essential hypertension, benign (401.1) (I10) Class 2 obesity with body mass index (BMI) of 35.0 to 35.9 in adult (278.00,V85.35) (E66.9,Z68.35) Aortic dilatation (447.70) (I77.819) Never a smoker Sinus bradycardia (427.89) (R00.1) Diabetes mellitus (250.00) (E11.9) Palpitations (785.1) (R00.2) Orders Class 2 obesity with body mass index (BMI) of 35.0 to 35.9 in adult Healthy Weight Tips; Status:Complete - Retrospective Authorization; Done: [id number] Some eating tips that can help you lose weight.; Status:Complete - Retrospective Authorization; Done: [id number] Essential hypertension, benign Renew: Lisinopril 40 MG Oral Tablet; TAKE 1 TABLET EVERY DAY Hyperlipemia Renew: Atorvastatin Calcium 10 MG Oral Tablet; take 1 tablet by mouth once daily Palpitations, Paroxysmal atrial fibrillation Renew: Atenolol 100 MG Oral Tablet; TAKE 1 TABLET DAILY IO EKG Electrocardiogram- 12 Lead; Status:Complete; Done: [id number] IO Event Monitor 30 days; Status:Active - Perform Order,Retrospective Authorization; Requested for:[id number]; SocHx: Never a smoker Tobacco Use Screening; Status:Complete; Done: [id number] Patient Instructions Please bring all medicines, vitamins, and herbal supplements with you when you come to the office. Prescriptions will not be filled unless you are compliant with your follow up appointments or have a follow up appointment scheduled as per instruction of your physician. Refills should be requested at the time of your visit. WENDY for palps Follow up in 6 months with EKG The provider reviewed the following test(s) and result(s) with the patient: ECG Chief Complaint GUSTAVO JOHNSON is being seen for a 9 month follow-up of. History of Present Illness Patient is here for follow-up continue management for history of dilated aortic root, paroxysmal atrial fibrillation with prior cardioversion, hypertension and obesity. Since last time I saw him he reports his been having symptoms of palpitation and he think he may be having panic attacks. It is unclear to me whether he is having some arrhythmia generating discussion of symptoms. He denies lightheadedness, dizziness or syncope. He underwent previous cardiac work-up. His heart cath several years ago showed no evidence of coronary artery disease. His last CT scan showed his aortic root dilatation is stable over the last several years. Assessment 1. Mildly dilated aortic root at 4.[address] scan done here and had been stable over the last several years we will plan on repeating it in 1 to 2 years 2. History of paroxysmal atrial fibrillation underwent SIL guided cardioversion and no recurrence but he reports symptoms of palpitation unclear whether it is related to panic attack or arrhythmia 3. Long-term anticoagulation with place tolerating that well 4. Hypertension controlled 5. Diabetes mellitus 6. Obesity minimal weight gain 7. Hyperlipidemia is controlled. Recent lab noted and reviewed with him 8. Palpitation and probable anxiety and panic attacks 9. Mild sinus bradycardia asymptomatic Plan 1. I recommend to the patient to continue present medical therapy for now 2. Risk, benefits alternative anticoagulation reviewed with patient he understood and agreed 3. Patient was counseled regarding losing weight, exercise and dietary modification 4. I reviewed with him the results of his recent laboratory data 5. I recommended 30-day event monitor to assess if his symptoms driven by arrhythmia or simply panic attack 6. Follow-up in 6 months with EKG 7. We will plan on repeating his CT scan in 1 to 2 years for follow-up for his dilated aortic root 8. Patient advised to notify me with change in cardiac status or symptoms and I advised him to monitor his blood pressure closely Surgical History Problems History of Cardiac catheterization History of Complete colonoscopy History of Hernia repair Current Meds Medication NameInstruction Allopurinol 100 MG Oral TabletTAKE 1 TABLET DAILY. Atenolol 100 MG Oral TabletTAKE 1 TABLET DAILY. Atorvastatin Calcium 10 MG Oral Tablettake 1 tablet by mouth once daily Eliquis 5 MG Oral TabletTAKE 1 TABLET BY MOUTH TWICE DAILY glipiZIDE 5 MG Oral TabletTAKE 1 TABLET DAILY DIRECTED. Lisinopril 40 MG Oral TabletTAKE 1 TABLET EVERY DAY metFORMIN HCl - 500 MG Oral TabletTAKE 1 TABLET DAILY. Patient did not bring medication list or bottles. Updated verbally with patient Allergies Medication No Known Drug Allergies Recorded By: Minnie Dunne; 01/12/2021 10:30:51 AM Social History Problems Caffeine use (V49.89) (Z78.9) decaf coffee, caffeine free soda Never a smoker No alcohol use No illicit drug use Review of Systems Constitutional: not feeling tired. Cardiovascular: palpitations, but no intermittent leg claudication an (more content not included)... Normal [employer] Tobacco Screening.on Fall risk assessment a) No falls within the last year -[facility] [employer] [address] DO Work Phone: Tobacco use status CP b) No -[facility] [employer] 600 DO Work Phone: GLYCOHEMOGLOBIN A1Con 2021 ADA RECOMMENDATION SEE BELOW Normal [facility] Comment on above: Result Comment: ADA RECOMMENDED LIMIT 4.0 - 6.0 ADA THERAPEUTIC TARGET < 7.0 ACTION SUGGESTED > 7.0 Performed By: #### A 1C #### [facility] [address] [address] [address] Doug Payne Glucose [Mass/Vol] 137 mg/dL Normal [facility] Comment on above: Performed By: #### A 1C #### [facility] [address] [address] [address] Doug Payne HbA1c (Bld) [Mass fraction] 6.4 % Critically high 4.5-6.2 [facility] Comment on above: Performed By: #### A 1C #### [facility] [address] [address] [address] Doug Payne LIPID PROFILEon 10-17-2021 CHOL-HDL RATIO NORM SEE BELOW [facility] Comment on above: Result Comment: 3.3 - 4.4 LOW RISK 4.4 - 7.1 AVERAGE RISK 7.1 - 11.0 MODERATE RISK >11.0 HIGH RISK Performed By: #### A LT, LIPID, AST ####[facility] [address] [address]Dr. Doug Payne Cholesterol [Mass/Vol] 112 mg/dL Normal <=200 [facility] Comment on above: Performed By: #### A LT, LIPID, AST ####[facility] [address] [place] [address]Dr. Doug Payne Cholesterol in HDL [Mass/Vol] 27 mg/dL Critically low 40-60 [facility] Comment on above: Performed By: #### A LT, LIPID, AST ####[facility] [address] [address]Dr. Doug Payne Cholesterol in LDL [Mass/Vol] 58.4 mg/dL Normal [facility] Comment on above: Performed By: #### A LT, LIPID, AST ####[facility] [address] [address]Dr. Doug Payne Cholesterol.total/C holesterol in HDL [Mass ratio] 4.1 {ratio} Normal [facility] Comment on above: Performed By: #### A LT, LIPID, AST ####[facility] [address] [place], [place] [address]Dr. Doug Payne HDL NORMAL > or = 60 mg/dl - LO W CARDIOVASCULAR RISK <40 mg/dl - HIGH CARDIOVASCULAR RISK Normal [facility] Comment on above: Performed By: #### A LT, LIPID, AST ####[facility] [address] [place] [address]Dr. Doug Payne LDL CALC NORMAL SEE BELOW Normal [facility] Comment on above: Result Comment: <100 mg/dl OPTIMAL 100 - 129 mg/dl NEAR OR ABOVE OPTIMAL 130 - 159 mg/dl BORDERLINE HIGH 160 - 189 mg/dl HIGH >190 mg/dl VERY HIGH Performed By: #### A LT, LIPID, AST ####[facility] [address] [place] [address]Dr. Doug Payne Triglyceride [Mass/Vol] 133 mg/dL Normal <=150 [facility] Comment on above: Performed By: #### A LT, LIPID, AST ####[facility] [address] [address]Dr. Doug Payne VLDL CALC 26.6 mg/dL Normal [facility] Comment on above: Performed By: #### A LT, LIPID, AST ####[facility] [address] [place], [place] [address]Aw. Doug Payne SGOTon 10-17-2021 AST [Catalytic activity/Vol] 15 U/L Normal 15-37 [facility] Comment on above: Performed By: #### A LT, LIPID, AST ####[facility] [address] [place], [place] [address]Ik. Doug Payne SGPTon 10-17-2021 ALT [Catalytic activity/Vol] 23 U/L Normal 16-63 [facility] Comment on above: Performed By: #### A LT, LIPID, AST ####[facility] [id number] [place], [place] [address]Ga. Doug Payne Office Visit (Cardiology)on 10-16-2021 Follow-up visit Diagnoses/Problems Assessed Aortic dilatation (447.70) (I77.819) Essential hypertension, benign (401.1) (I10) High risk medication use (V58.69) (Z79.899) Never a smoker Paroxysmal atrial fibrillation (427.31) (I48.0) Sinus bradycardia (427.89) (R00.1) Diabetes mellitus (250.00) (E11.9) Class 2 obesity with body mass index (BMI) of 35.0 to 35.9 in adult (278.00,V85.35) (E66.9,Z68.35) Hyperlipemia (272.4) (E78.5) Orders Class 2 obesity with body mass index (BMI) of 35.0 to 35.9 in adult Healthy Weight Tips; Status:Complete; Done: [id number] Hyperlipemia ALT - Alanine Aminotransferase, Serum; Status:Active; Requested for:96Qwk1291; AST; Status:Active; Requested for:89Ajg6831; Lipid Panel; Status:Active; Requested for:[id number]; SocHx: Never a smoker Tobacco Use Screening; Status:Complete; Done: [id number] Patient Instructions Please bring all medicines, vitamins, and herbal supplements with you when you come to the office. Prescriptions will not be filled unless you are compliant with your follow up appointments or have a follow up appointment scheduled as per instruction of your physician. Refills should be requested at the time of your visit. Follow up in 9 months with ecg Chief Complaint GUSTAVO JOHNSON is being seen for a 9 month follow-up of. History of Present Illness Patient is here for follow-up and management for dilated aortic root, paroxysmal atrial fibrillation, long-term anticoagulation, hypertension and obesity. Since last time I saw him he denies any change in cardiac status or symptoms. Discussed functional class I. His CT scan showed his aortic root is stable at 4.7 cm. Recent laboratory data noted but no lipid profile was found. He reports he had 1 visit to the emergency room because of elevated blood pressure transiently and his blood pressure has been well controlled since then. Assessment 1. Mildly dilated aortic root at 4.[address] scan done a year ago 2. History of paroxysmal atrial fibrillation underwent SIL guided cardioversion and no recurrence since April 3. Long-term anticoagulation with place tolerating that well 4. Hypertension controlled 5. Recent diagnosis diabetes mellitus 6. Obesity weight changes 7. Hyperlipidemia is controlled Plan 1. I recommend to the patient to continue present medical therapy 2. Risk, benefits alternative anticoagulation reviewed with patient he understood and agreed 3. Patient was counseled regarding losing weight, exercise and dietary modification 4. I reviewed with him the results of his recent laboratory data 5. I recommended repeat his lipid profile 6. Follow-up in 9 months with EKG Current Meds Medication NameInstruction Allopurinol 100 MG Oral TabletTAKE 1 TABLET DAILY. Atenolol 100 MG Oral TabletTAKE 1 TABLET DAILY. Atorvastatin Calcium 10 MG Oral Tablettake 1 tablet by mouth once daily Eliquis 5 MG Oral TabletTAKE 1 TABLET BY MOUTH TWICE DAILY. glipiZIDE 5 MG Oral TabletTAKE 1 TABLET DAILY DIRECTED. Lisinopril 40 MG Oral TabletTAKE 1 TABLET EVERY DAY Allergies Medication No Known Drug Allergies Recorded By: Minnie Dunne; 01/12/2021 10:30:51 AM Social History Problems Caffeine use (V49.89) (Z78.9) decaf coffee, caffeine free soda Never a smoker No alcohol use No illicit drug use Review of Systems Constitutional: not feeling tired. Cardiovascular: no intermittent leg claudication and as noted in HPI. Respiratory: no cough and no shortness of breath. Gastrointestinal: no change in bowel habits and no blood in stools. Integumentary: no skin rashes. Neurological: no seizures and no frequent falls. All other systems have been reviewed and are negative for complaint. Vitals Vital Signs Recorded: 16Oct2021 11:02AM Heart Rate60, R Radial Zvkexmqj650, RUE, Sitting Opzivmizi03, RUE, Sitting Height5 ft 11 in Ekxmaq309 lb BMI Psjwsdzamb49.57 kg/m2 BSA Calculated2.34 Tobacco Useb) No PHQ-2 #1. Over the last 2 weeks have you felt down, depressed or hopeless? (If yes, answer PHQ-9 below)No PHQ-2 #2. Over the last 2 weeks have you felt little interest or pleasure in doing things? (If yes, answer PHQ-9 below)No Physical Exam Constitutional: alert and in no acute distress. Neck: neck is supple, symmetric, trachea midline, no masses and no thyromegaly . Pulmonary: no increased work of breathing or signs of respiratory distress and lungs clear to auscultation. Cardiovascular: carotid pulses 2+ bilaterally with no bruit , JVP was normal, no thrills , regular rhythm, normal S1 and S2, no murmurs , pedal pulses 2+ bilaterally and no edema . Abdomen: abdomen non-tender, no masses and no hepatomegaly . Skin: skin warm and dry, normal skin turgor . Psychiatric judgment and insight is normal and oriented to person, place and time . Signatures Electronically signed by : Phillip Ford MD; Oct 16 2021 11:35AM EST (Author) Normal [employer] Tobacco Screening.on 022 Adult depression screening assessment No [facility] [employer] DO Work Phone: Tobacco use status CPHS b) No [facility] 600 DO Work Phone: XR CSPINE OBL FLEX_EXTon XR CSPINE OBL FLEX_EXT EXAMINATION: XR CSPINE OBL FLEX_EXT HISTORY: Brachial (cervical) neuritis COMPARISON: No relevant comparison available. FINDINGS: BONES: Normal alignment with no acute fracture or spondylolisthesis. Large bulky bridging. Osteophytes most significant C3-C7. DISC SPACES: Normal. No significant disc height narrowing, subluxation, or endplate abnormality. PARASPINOUS: Negative. No paraspinous abnormality is seen. OTHER: Limited range of motion with flexion or extension. 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 No acute fracture or dynamic instability Electronically authenticated by: ADRI RODRIGUEZ Date: 2021-07-15 10:27 Normal [facility] Radiologyon 01-19-2021 CTA Chest vessels Normal -[facility] [address] [place] Work Phone: Laboratory - Chemistry and C hemistry - challengeon 01-12-2021 CO2 [Moles/Vol] 26 mmol/L Normal 21-31 [facility] 600 DO Work Phone: No Panel Informationon 01-12 14 {mEq/L} Normal 6-16 [facility] 600 DO Work Phone: 100 mmol/L below low threshold 101-111 [facility] 600 DO Work Phone: 4.6 mmol/L Normal 3.5-5.3 [facility] 600 DO Work Phone: 135 mmol/L Normal 135-145 [facility] 600 DO Work Phone: 9.2 mg/dL Normal 8.9-11.1 [facility] 600 DO Work Phone: 19 {No_Units} Normal 10-20 [facility] 600 DO Work Phone: 1.0 mg/dL Normal 0.5-1.3 [facility] 600 DO Work Phone: 19 mg/dL Normal 5-21 [facility] 600 DO Work Phone: 195 mg/dL Normal 55-199 [facility] 600 DO Work Phone: Comment on above: If this glucose resu lt represents a fasting glucose, interpretation should refer to the following reference range: 55-99 mg/dL >60 Normal >=59 [facility] 600 DO Work Phone: Comment on above: eGFR is race adjuste d. AA=. Chronic kidney disea se could be indicated at eGFR's of less than 60 mL/min/1.73m2. Kidney failure is indicated at less than 15 mL/min/1.73m2. Tobacco Screening.on 021 Tobacco use status CPHS b) No [facility] 600 DO Work Phone: Cardiovascular Lab Reporton 04-29-2019 Cardiovascular Lab Report [facility] Patient Name: Gustavo [facility] MR #: [id number] Physician: Jatinder Gilliland Department of Yadira Cobb Medicine Service Date: 04/28/2019 Division of Birthdate: 1960 Cardiology Room #: [facility] Cardiovascular Services [address] [place] [address] Cardiovascular Laboratory Report PROCEDURE: Transesophageal echocardiogram and cardioversion. INDICATION: Atrial fibrillation. FELLOW: Summer Villasenor M.D. PROCEDURE IN DETAILS: An informed consent was obtained from the patient after explaining the indication, risks, and benefits, and alternatives. The patient understood and agreed and signed the consent form. The patient was brought to the lab courier and SIL was performed under conscious sedation. The patient obtained a total of 5 mg of Versed and 75 mcg of fentanyl during the procedure. The transesophageal echocardiogram did not show any thrombus in the left atrial appendage. Full SIL is reported elsewhere. After the transesophageal echocardiogram, synchronized biphasic cardioversion was done with 360 joules of energy. The patient was successfully converted to normal sinus rhythm as evidenced by the EKG done postprocedure. No complications throughout the procedure. Electronically Signed by: Jatinder Cobb M.D. 05/02/2019 08:41 P Jatinder Cobb M.D. I was present for the entire procedure. Date Dict: 04/28/2019/10:47 A/Summer Villasenor MD Date Trans: 04/29/2019 07:17 A/ronan [id number] cc: Caroline Blount, MSN, SUPERINTENDENT MARINE-C Department Of Surgery [place] [address] [facility] [address] Eugene Mariscal M.D. [address] [facility] [address] [facility] Vital Signs Date Time Vital Sign Value Performing Clinician Faci lity 03-28-2023 08:31-0500 Body height 180.3 cm Matthew Hood MD Work Phone: [facility] [employer] 03-28-2023 08:31-0500 Body mass index (BMI) [Ratio] 34.73 kg/m2 Matthew Hood MD [facility] 03-28-2023 08:31-0500 Body weight 112.95 kg Matthew [facility] MD [facility] 03-28-2023 08:31-0500 Diastolic blood pressure 92 mm[Hg] Matthew Hood MD [facility] 03-28-2023 08:31-0500 Heart rate 86 /min Matthew Hood MD Work [facility]: [facility] 03-28-2023 08:31-0500 SaO2% (BldA) [Mass fraction] 92 % Matthew Hood MD Work [facility] 03-28-2023 08:31-0500 Systolic blood pressure 126 mm[Hg] Matthew Hood MD Work Phone: [facility] [employer] 09-12-2022 10:11-0400 Body height 180.34 cm Eugene Mariscal Work Phone: [facility] [employer] 600 DO Work Phone: 09-12-2022 10:11-0400 Body mass index (BMI) [Ratio] 35.84 kg/m2 Eugene Mariscal Work Phone: [facility] [employer] 600 DO Work Phone: 09-12-2022 10:11-0400 Body surface area Derived from formula 2.35 m2 Eugene Wills Naderer Work Phone: [facility] 600 DO Work Phone: 09-12-2022 10:11-0400 Body weight 116.58 kg Eugene Wills Naderer Work Phone: [facility] 600 DO Work Phone: 09-12-2022 10:11-0400 Diastolic blood pressure 88 mm[Hg] Eugene Wills Naderer Work Phone: [facility] [facility] DO Work Phone: 09-12-2022 10:11-0400 Heart rate 52 /min Eugene Wills Naderer Work Phone: [facility] [employer] 600 DO Work Phone: 09-12-2022 10:11-0400 Systolic blood pressure 138 mm[Hg] Eugene Wills Naderer Work Phone: [facility] 600 DO Work Phone: 03-05-2022 11:12-0500 Body height 180.34 cm Eugene Wills Naderer Work Phone: [facility] 600 DO Work Phone: 03-05-2022 11:12-0500 Body mass index (BMI) [Ratio] 36 kg/m2 Eugene Wills Naderer Work Phone: [facility] 600 DO Work Phone: 03-05-2022 11:12-0500 Body surface area Derived from formula 2.35 m2 Eugene Wills Naderer Work Phone: [facility] 600 DO Work Phone: 03-05-2022 11:12-0500 Body weight 117.09 kg Eugene A Naderer Work Phone: [facility] [employer] 600 DO Work Phone: 03-05-2022 11:12-0500 Diastolic blood pressure 80 mm[Hg] Eugene A Naderer Work Phone: [facility] [employer] 600 DO Work Phone: 03-05-2022 11:12-0500 Heart rate 52 /min Eugene A Naderer Work Phone: [facility] [employer] 600 DO Work Phone: 03-05-2022 11:12-0500 Systolic blood pressure 120 mm[Hg] Eugene A Naderer Work Phone: [facility] [employer] 600 DO Work Phone: 10-16-2021 11:02-0400 Body height 180.34 cm Eugene A Naderer Work Phone: [facility] [employer] 600 DO Work Phone: 10-16-2021 11:02-0400 Body mass index (BMI) [Ratio] 35.57 kg/m2 Eugene A Naderer Work Phone: [facility] [employer] 600 DO Work Phone: 10-16-2021 11:02-0400 Body surface area Derived from formula 2.34 m2 Eugene A Naderer Work Phone: [facility] [employer] 600 DO Work Phone: 10-16-2021 11:02-0400 Body weight 115.67 kg Eugene A Naderer Work Phone: [facility] [employer] 600 DO Work Phone: 10-16-2021 11:02-0400 Diastolic blood pressure 70 mm[Hg] Eugene A Naderer Work Phone: [facility] [employer] 600 DO Work Phone: 10-16-2021 11:02-0400 Heart rate 60 /min Eugene Wills Naderer Work Phone: [facility] 600 DO Work Phone: 10-16-2021 11:02-0400 Systolic blood pressure 128 mm[Hg] Eugene Wills Naderer Work Phone: [facility] 600 DO Work Phone: 01-12-2021 10:31-0400 Body height 180.34 cm Referring Provider Unknown [facility] 600 DO Work Phone: 01-12-2021 10:31-0400 Body mass index (BMI) [Ratio] 36.12 kg/m2 Referring Provider Unknown [facility] 600 DO Work Phone: 01-12-2021 10:31-0400 Body surface area Derived from formula 2.35 m2 Referring Provider Unknown [facility] 600 DO Work Phone: 01-12-2021 10:31-0400 Body weight 117.48 kg Referring Provider Unknown [facility] 600 DO Work Phone: 01-12-2021 10:31-0400 Diastolic blood pressure 88 mm[Hg] Referring Provider Unknown [facility] 600 DO Work Phone: 01-12-2021 10:31-0400 Heart rate 58 /min Referring Provider Unknown [facility] 600 DO Work Phone: 01-12-2021 10:31-0400 Systolic blood pressure 138 mm[Hg] Referring Provider Unknown [facility] 600 DO Work Phone: Encounters Encounter Date Encounter Type Care Provider Facility Start: 07-07-2023 End: 07-07-2023 ambulatory EUGENE MARISCAL Not Available Start: 05-13-2023 Telephone encounter Maryuri Macias RN [facility] Comment on above: overdue INR (1st att empt) Start: 05-03-2023 Refill Bertha Call agever 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); Paroxysmal atrial fibrillation ([facility]); Anticoagulant long-term use Start: 03-27-2023 Telephone encounter Anna Colon CMA [facility] Start: 03-18-2023 Follow-up encounter Jobs[employer]son Serv ice Work Phone: [facility] Medication Therapy Management Comment on above: S/P AVR (aortic valv e replacement) (Primary Dx); Atrial fibrillation Start: 03-13-2023 End: 03-13-2023 ambulatory FREDDY MCLEOD Not Available Start: 09-12-2022 End: 06-20-2023 Pre-admission assessment Phillip Ford [facility] Start: 09-12-2022 Office outpatient vi sit 25 minutes Eugene Mariscal Work Phone: [facility] 600 DO Work Phone: Start: 09-12-[address] Phillip Ford Facility: Start: 07-10-2022 Telephone encounter Eugene cordero Work Phone: [facility] 250 DO Work Phone: Start: 06-12-2022 Rx Renewal Eugene Mariscal Work Phone: [facility] 250 DO Work Phone: Start: 06-11-2022 End: 06-12-[address] EUGENE MARISCAL Facility:H1 Start: 04-15-[address] Phillip Ford Facility: Start: 03-19-2022 End: 03-20-2022 ambulatory SHAIKH Imelda ORTEGA Facility:[facility]1 Start: 03-06-2022 EVENT MICHAEL, Provider : ALE TAMEZ RESTAURANT BARTENDER 1,[id number], Status: Pen, Time: 3:00 PM Eugene Mariscal Work Phone: [facility] 600 DO Work Phone: Start: 03-06-2022 Patient encounter procedure Eugene Mariscal Work Phone: [facility] 600 DO Work Phone: Start: 03-06-[address] Phillip Ford Facility: Start: 03-05-2022 Office outpatient vi sit 25 minutes Eugene Robertsonr Work Phone: [facility] 600 DO Work Phone: Start: 03-05-[address] Eugene Mariscal Facility: Start: 02-18-2022 Rx Renewal Eugene Mariscal Work Phone: [facility] 250 DO Work Phone: Start: 11-19-2021 End: 11-20-[address] EUGENE MARISCAL Facility:H1 Start: 10-17-2021 End: 10-18-[address] PHILLIP FORD Facility:H1 Start: 10-16-2021 Office outpatient vi sit 25 minutes Eugene Wills Nadjesicar Work Phone: [facility] 600 DO Work Phone: Start: 10-16-[address] Phillip Ford Facility:[id number] Start: 08-15-2021 End: 08-16-[address] AILYN DEL VALLE . Facility:H1 Start: 07-31-2021 End: 07-31-[address] AILYN DEL VALLE . Facility:[facility]1 Start: 07-13-2021 End: 07-14-[address] DOCTOR SIEGEL Facility:H1 Start: 07-12-2021 End: 07-13-[address] AILYN DEL VALLE . Facility:H1 Start: 06-20-2021 Rx Renewal Referring Prov ider Unknown [facility] 250 DO Work Phone: Start: 01-22-2021 Chart Update Referring Prov ider Unknown [facility] [address] [place] Work Phone: Start: 01-12-2021 Chart Update Referring Prov ider Unknown [facility] 600 DO Work Phone: Start: 01-12-2021 Office outpatient vi sit 25 minutes Referring Provider Unknown [facility] 600 DO Work Phone: Procedures Date Procedure Procedure Detail Performing Clinician Start: 03-28-2023 Follow-up visit Follow-up MATTHEW HOOD Start: 02-28-2023 Adult depression scr eening assessment Anna Colon CIRCUIT BREAKER ASSEMBLER Start: 06-11-2022 PSA screening SHAIKH KEVAN STALEY Comment on above: Performed By: #### P [facility] ####[place] [address]Dr. Doug Payne Start: 04-24-2019 Total colonoscopy Refer ring Provider Unknown Start: 04-09-2019 Colonoscopy Anna houstno CIRCUIT BREAKER ASSEMBLER Cardiac catheterization Refe rring Provider Unknown Hernia repair Referring Prov ider Unknown Plan of Treatment Date Care Activity Detail Author Start: 06-15-2032 DTaP,Tdap and Td Vaccines (2 - Td or Tdap) DTaP,Tdap and Td Vaccines (2 - Td or Tdap) [facility] Start: 04-09-2029 Screening for malignant neoplasm of colon Colonoscopy [facility] Start: 03-28-2024 Adult BMI Screening Adult BMI Screening [facility] Start: 03-28-2024 Tobacco Screening Tobacco Screening [facility] Start: 03-11-2024 Adult BMI Screening Adult BMI Screening [facility] Start: 02-29-2024 Depression Screening Depression Screening [facility] Start: 02-29-2024 Tobacco Screening Tobacco Screening [facility] Start: 06-24-2023 FUV, Provider: Phillip Ford, Status: Pen, Time: 9:10 AM FUV, Provider: Phillip Ford, Status: Pen, Time: 9:10 AM [facility] 600 DO Work Phone: Start: 04-15-2023 End: 04-15-2023 Patient encounter procedure 04/15/2023 2:00 PM EST Appointment [facility] - Cardiovascular [address] [place] [address] Matthew Hood MD [address] [place] [address] [facility] - Cardiovascular Start: 03-28-2023 End: 03-28-2024 Echo complete W/O contrast Echo complete W/O contrast Echocardiography Routine Aneurysm of ascending aorta without rupture ([facility]) S/P AVR (aortic valve replacement) Expected: 03/28/2023, Expires: 03/28/2024 [facility] Work Phone: Comment on above: Expected: 03/28/2023, Expires: Start: 03-28-2023 End: 03-28-2023 Patient encounter procedure 03/28/2023 8:45 AM EST [facility] [address] [place] [address] Matthew Hood MD [address] [place] [address] [facility] Start: 11-22-2022 Influenza vaccination Influenza Vaccine [facility] Start: 09-19-2022 FUV, Provider: Phillip Ford, Status: Pen, Time: 9:40 AM FUV, Provider: Phillip Ford, Status: Pen, Time: 9:40 AM [facility] 600 DO Work Phone: Start: 09-12-2022 FUV, Provider: Phillip Ford, Status: Pen, Time: 9:40 AM FUV, Provider: Phillip Ford, Status: Pen, Time: 9:40 AM [facility] 250 DO Work Phone: Start: 06-26-2022 FUV, Provider: Phillip Ford, Status: Pen, Time: 9:40 AM FUV, Provider: Phillip Ford, Status: Pen, Time: 9:40 AM [facility] 600 DO Work Phone: Start: 10-16-2021 FUV, Provider: Phillip Ford, Status: Pen, Time: 10:30 AM FUV, Provider: Phillip Ford, Status: Pen, Time: 10:30 AM [facility] 600 DO Work Phone: Start: 10-16-2021 FUV, Provider: Phillip Ford, Status: Pen, Time: 10:10 AM FUV, Provider: Phillip Ford, Status: Pen, Time: 10:10 AM [facility] 600 DO Work Phone: Start: 1978 Adult BMI Follow Up Plan Adult BMI Follow Up Plan [facility] Start: 1978 Diabetic foot examination Diabetic Foot Exam [facility] Start: 1960 Glaucoma screening Diabetic Ophthalmology Exam [facility] Start: 1960 Urine screening for protein Urine Microalbumin [facility] End: 09-26-2023 Ambulatory referral to Cardiac Rehabilitation ([facility]) Ambulatory referral to Cardiac Rehabilitation ([facility]) Card Rehab Routine Aneurysm of ascending aorta without rupture ([facility]) S/P AVR (aortic valve replacement) Per Treatment Plan for 36 Occurrences starting 03/28/2023 until 09/26/2023 [facility] Comment on above: Per Treatment Plan for [address] arting 03/28/2023 until 09/26/2023 Immunizations Immunization Date Immunization Notes Care Provider Kevan chowdary 09-08-2022 zoster vaccine recombinant Eugene A Naderer Work Phone: [facility] 600 DO Work Phone: 06-15-2022 tetanus toxoid, redu heidi diphtheria toxoid, and acellular pertussis vaccine, adsorbed Eugene A Naderer Work Phone: [facility] 600 DO Work Phone: 06-15-2022 zoster vaccine recombinant Eugene A Naderer Work Phone: [facility] 600 DO Work Phone: 02-19-2020 influenza, injectabl e, quadrivalent, preservative free Referring Provider Unknown [facility] 600 DO Work Phone: 02-19-2020 influenza virus vaccine, unspecified formulation Anna Colon [facility] 12-31-2019 influenza, seasonal, injectable Referring Provider Unknown [facility] 600 DO Work Phone: 12-22-2018 influenza, seasonal, injectable Referring Provider Unknown [facility] 600 DO Work Phone: 01-11-2018 influenza, injectabl e, quadrivalent, preservative free Referring Provider Unknown [facility] 600 DO Work Phone: 01-28-2016 influenza, injectabl e, quadrivalent, preservative free Referring Provider Unknown [facility] 600 DO Work Phone: Payers Date Payer Category Payer Medicare [id number] 2021 Medicaid [id number]. [id number] 2021 Medicare [id number] 1960 Unknown [id number] 2.16.84 0.1.615830.3.579.2.593 1960 Unknown [id number] 2.16.84 0.1.480471.3.579.2.593 1960 Unknown [id number] 2.16.84 0.1.188875.3.579.2.593 1960 Unknown [id number] 2.16.84 0.1.033130.3.579.2.593 1960 Unknown [id number] 2.16.84 0.1.644785.3.579.2.593 1960 Unknown [id number] 2.16.84 0.1.824886.3.579.2.593 1960 Unknown [id number] 2.16.84 0.1.632463.3.579.2.593 1960 Unknown [id number] 2.16.84 0.1.840958.3.579.2.593 1960 Unknown [id number] 2.16. 840.1.084380.3.579.2.356 1960 Unknown [id number] 2.16. 840.1.051955.3.579.2.356 1960 Unknown [id number] 2.16. 840.1.111654.3.579.2.356 1960 Unknown [id number] 2.16. 840.1.100739.3.579.2.356 1960 Unknown [id number] 2.16. 840.1.140122.3.579.2.356 1960 Unknown [id number] 2.16.84 0.1.351844.3.579.2.1286 1960 Unknown [id number] 2.16.84 0.1.532496.3.579.2.1259 1960 Unknown [id number] 2.16.84 0.1.468532.3.579.2.1259 1960 Unknown [id number] 2.16.840 .1.840852.3.579.2.1259 1959 Medicare [id number] 1959 Unknown [id number] Medicaid [id number] Unknown Social History Date Type Detail Facility Start: 05-04-2020 End: 02-28-2023 Caffeine use Caffeine use -[facility] coComment 600 DO Work Phone: Comment on above: decaf coffee, caffei ne free soda; Start: 10-26-2019 End: 10-25-2022 Tobacco smoking status NHIS Never smoked tobacco [facility] Start: 10-25-2022 Tobacco use and exposure Forme r smokeless tobacco user [facility] End: 02-15-2018 History of tobacco use Chews Tobacco [facility] Start: 03-03-2023 End: 03-28-2023 Alcohol intake Ex-drinker (finding) [facility] Start: 05-04-2020 End: 02-28-2023 Alcohol Use Disorder Identification Test - Consumption [AUDIT-C] [facility] How often to you hav e a drink containing alcohol? Never [facility] How many standard dr inks containing alcohol do you have on a typical day? Patient does not drink [facility] Start: 1960 Sex Assigned At Not on file P [facility] Medical Equipment Procedure Code Equipment Code Equipment Origin al Text Equipment Identifier Dates Valve Aor 11cm 2 6mm 36mm 23.4mm Onx Vascutek Glwv Vslv [facility] - [id number] - [id number] Start: 02-27-2023 USE 1 STRIP TO C HECK GLUCOSE ONCE DAILY [id number] Start: 12-08-2019 Goals Date Patient Goal Desired Activity /State Personal health goal Comment on above: Formatting of this n ote might be different from the original. Evaluation of progress towards goal: return home with homecare and support Clinical Notes 07-12-2021 to 05-13-2023 Telephone Encounter - Maryuri Macias RN - 05/13/2023 3:40 PM ESTTelephone Encounter - Maryuri Macias RN - 05/13/2023 3:40 PM Albaro Hood MD - 03/28/2023 8:45 AM EST Note Date & Type Note Facility 05-13-2023 Miscellaneous Notes Pt on overdue INR list; attempted to call pt, however NA/NM.hrs documented in this encounter [facility] 05-13-2023 Telephone encounter Note Pt on overdue INR list; attempted to call pt, however NA/NM.hrs [facility] 03-28-2023 History of Presen t illness Narrative Gustavo Johnson Date of visit: 03/28/2023 Date of : 1960 Age: 62 y.o. Patient Active Problem List Diagnosis Aneurysm of ascending aorta without rupture ([facility]-HCC) Nonrheumatic aortic valve insufficiency Atrial fibrillation Chest pain Shortness of breath Anticoagulant long-term use At low risk for fall Benign essential hypertension Gastroesophageal reflux disease Gout Obesity with body mass index (BMI) of 30.0 to 39.9 Osteoarthritis Sleep apnea Umbilical hernia without obstruction or gangrene Vitamin D deficiency S/P AVR (aortic valve replacement) Paroxysmal atrial fibrillation ([facility]-HCC) No Known Allergies Current Outpatient Medications Medication Sig Dispense Refill allopurinol (ZYLOPRIM) 100 mg tablet Take 1 tablet (100 mg total) by mouth in the morning. 5 aspirin 81 mg Take 1 tablet (81 mg total) by mouth in the morning. TAKING PRN. atorvastatin (LIPITOR) 10 mg tablet Take 1 tablet (10 mg total) by mouth in the morning. glipiZIDE (GLUCOTROL XL) 5 mg 24 hr tablet Take 1 tablet (5 mg total) by mouth in the morning. metFORMIN XR (GLUCOPHAGE XR) 500 mg 24 hr tablet Take 1 tablet (500 mg total) by mouth in the morning. omeprazole (PriLOSEC) 20 mg capsule as needed. ONETOUCH ULTRA BLUE TEST STRIP strip USE 1 STRIP TO CHECK GLUCOSE ONCE DAILY ONETOUCH ULTRA2 METER misc USE TO CHECK GLUCOSE ONCE DAILY warfarin (COUMADIN) 4 mg tablet 4 milligrams p.o. daily, check PT INR as directed, dose may vary 60 tablet 0 carvediloL (COREG) 6.25 mg tablet Take 1 tablet (6.25 mg total) by mouth in the morning and 1 tablet (6.25 mg total) before bedtime. 180 tablet 3 No current facility-administered medications for this visit. Chief Complaint Patient presents with Follow-up post op 02/27/23 ASCENDING AORTIC ANEURYSM REPAIR WITH REPLACEMENT OF AORTIC ROOT AND AORTIC VALVE REPLACEMENT -MODIFIED BENTALL PROCEDURE USING ON-X ASCENDING AORTIC PROSTHESIS/LIGATION OF ATRIAL APPENDAGE WITH 45MM PENDITURE CLAMP/SIL SCHED W/PT History of Present Illness Gustavo is here for follow-up. He is doing incredibly well since going through open heart surgery. He would postoperative atrial fibrillation. He was placed on amiodarone. He is stopped that on his own. Metoprolol. Systolic blood pressures were in the 130s or so. He is really doing great and doing activities around the house without problems. No palpitations. No chest pain or pressure. No real shortness of breath. Past Medical History: Diagnosis Date Aneurysm ([facility]) Aortic aneurysm ([facility]) Cardiovascular disease Diabetes mellitus ([facility]) Gout Hyperlipidemia Hypertension No data recorded No data recorded No data recorded Past Surgical History: Procedure Laterality Date . N/A 12/09/2022 Performed by Fredi Lechuga MD at [facility] CARDIAC CATH LABS ASCENDING AORTIC ANEURYSM REPAIR WITH REPLACEMENT OF AORTIC ROOT AND AORTIC VALVE REPLACEMENT -MODIFIED BENTALL PROCEDURE USING ON-X ASCENDING AORTIC PROSTHESIS/LIGATION OF ATRIAL APPENDAGE WITH 45MM PENDITURE CLAMP/SIL N/A 02/27/2023 Performed by David Black MD at [facility] CARDIAC CATHETERIZATION Cardiac catheterization- CORS+RIGHT HEART+LV GRAM/PRESS (44063) with root injection N/A 12/09/2022 Performed by Fredi Lechuga MD at [facility] CARDIAC CATH [facility]S COLONOSCOPY Inject aortic root complete N/A 12/09/2022 Performed by Fredi Lechuga MD at [facility] CARDIAC CATH [facility] Right heart cath N/A 12/09/2022 Performed by Fredi Lechuga MD at [facility] CARDIAC CATH LABS Family History Problem Relation Age of Onset Diabetes Mother Heart disease Mother Heart disease Father Aneurysm Father Aneurysm Brother Aneurysm Brother Stroke Brother Social History Socioeconomic History Marital status: Spouse name: Not on file Number of children: Not on file Years of education: Not on file Highest education level: Not on file Occupational History Not on file Tobacco Use Smoking status: Never Smokeless tobacco: Former Types: Chew Quit date: 02/15/2018 Vaping Use Vaping Use: Never used Substance and Sexual Activity Alcohol use: Not Currently Drug use: Not Currently Sexual activity: Defer Partners: Female Other Topics Concern Caffeine Use No Social History Narrative Not on file Social Determinants of Health Financial Resource Strain: Not on file Food Insecurity: No Food Insecurity (03/28/2023) Hunger Screening Food Insecurity - Worry: Never True Food Insecurity - Inability: Never True Transportation Needs: Not on file Physical Activity: Not on file Stress: Not on file Social Connections: Not on file Interpersonal Safety: Not on file Review of Systems Review of Systems Constitutional: Negative for chills, fever and malaise/fatigue. HENT: Negative for hearing loss, hoarse voice and nosebleeds. Eyes: Negative for blurred vision and double vision. Respiratory: Negative for cough, shortness of breath and wheezing. Hematologic/Lymphatic: Negative for bleeding problem. Does not bruise/bleed easily. Skin: Negative for color change, rash and suspicious lesions. Musculoskeletal: Negative for back pain, joint swelling and muscle weakness. Gastrointestinal: Negative for change in bowel habit, constipation, diarrhea and hematochezia. Genitourinary: Negative for hematuria. Neurological: Positive for dizziness and light-headedness. Negative for headaches, loss of balance and numbness. Psychiatric/Behavioral: Negative for depression. The patient is not nervous/anxious. Allergic/Immunologic: Negative for environmental allergies. CARDIOVASCULAR: Please review HPI. Physical Examination General appearance: Alert, oriented and cooperative. In no acute distress. Skin: Warm and dry to touch. Head: Normocephalic, without obvious abnormality, atraumatic. Ears, Nose, Mouth, Throat: Throat clear without erythema or exudate. Dentition intact. Eyes: Conjunctivae unremarkable, EOM intact. Neck Neck supple, trachea midline. Respiratory: Clear to auscultation bilaterally, no use of accessory muscles. Cardiovascular: RRR with normal S1 and S2 with mec s1s2 Gastrointestinal: Soft, non-tender. Bowel sounds normal. Musculoskeletal: No peripheral edema. Neurologic: Oriented to time, person and place, affect appropriate. No focal/major motor defects noted. Psychiatric: Appropriate mood, memory and judgement. VITAL SIGNS: BP (!) 126/92 (BP Site: Left Arm, BP Postition: Sitting) Pulse 86 Ht 180.3 cm (5' 11 ) Wt 112.9 kg (249 lb) SpO2 92% BMI 34.73 kg/m Orders Placed or Reconciled This Encounter Medications DISCONTD: amiodarone (PACERONE) 200 mg tablet Sig: Take 1 tablet (200 mg total) by mouth in the morning. carvediloL (COREG) 6.25 mg tablet Sig: Take 1 tablet (6.25 mg total) by mouth in the morning and 1 tablet (6.25 mg total) before bedtime. Dispense: 180 tablet Refill: 3 Medications Discontinued During This Encounter Medication Reason amiodarone (PACERONE) 200 mg tablet Dose adjustment amiodarone (PACERONE) 200 mg tablet metoprolol tartrate (LOPRESSOR) 50 mg tablet IMPRESSIONS/PLAN 1. Aneurysm of ascending aorta without rupture (CMS-HCC) - Echo complete W/O contrast; Future - Ambulatory referral to Cardiac Rehabilitation (Non[facility]); Standing 2. Paroxysmal atrial fibrillation (CMS-HCC) 3. S/P AVR (aortic valve replacement) - Echo complete W/O contrast; Future - Ambulatory referral to Cardiac Rehabilitation ([facility]); Standing 4. Anticoagulant long-term use Ascending aortic aneurysm s/p 28 mm Gelweave graft, modified Bental, On-X, ligation RALPH 02/27/23, relatively rapid progression 2019 to 2022 pAF SIL-DCC prior to OHS Normal cors 10/2022 Family history of aneurysm, no clear specifics Post op pAF Nonrheumatic aortic regurgitation prior to surgery, clear trileaflet valve, intraoperative SIL reviewed Plan: He is stopped amiodarone. I would place him on a beta-etta as his pressure is slightly on the high side and use carvedilol moving forward. We are going to start that today. 2. Routine echo as he underwent valve surgery 3. Cardiac rehab but she wants to do through [place] 4. Ensure he is set up for anticoagulation clinic 5. Otherwise doing incredibly well. I told him to watch out for high heart rate readings, palpitations, etc. as atrial fibrillation could come back but he is otherwise making nice progress. 6. He does not have any children by told him in follow-up, we can talk about genetic testing for aortopathies. Sounds like some family member had a cerebral event and it may be worth screening Gustavo regardless. TODAYS ORDERS Orders Placed This Encounter Procedures Ambulatory referral to Cardiac Rehabilitation (Non[facility]) Echo complete W/O contrast FOLLOW UP Return in about 3 months (around 06/27/2023). PCP: EUGENE MARISCAL MD Referring Physician: Eugene Mariscal MD [address] [place] [address] Faxed referral for cardiac rehab to [facility] per pt request at [phone] Lmom for [facility] MTM regarding referral documented in this encounter [facility] 03-27-2023 Miscellaneous Notes Called patient to remind them to bring their most current copy of their medication list with them to their appt. Patient verbalizes understanding. documented in this encounter [facility] 03-27-2023 Telephone encounter Note Called patient to remind them to bring their most current copy of their medication list with them to their appt. Patient verbalizes understanding. [facility] 03-18-2023 History of Presen t illness Narrative Kate au/ Saman Camp[facility]. INR today: 2.3 PT today: 28.1 Contact pt w/ dosing instructions. Patient appeared on the 30 day OD INR report. Appears the patient was seen. See notes below. Noted. INR noted below was from >7 days ago thus no warfarin dose can be provided. Program Lead reached out to Ray who confirms patient was discharged from services on 03/25/23. Program Lead spoke to patient who confirms he remains on warfarin therapy and was under the impression his PCP was taking over his care so he can go to [facility] in [place] for INR checks. He has not had his INR checked recently, though. Explained to patient that INR recheck is needed and this can be completed at [facility] with our team or through his PCP if he prefers. Patient to reach out to PCP office on Friday04/14/23 when they re-open to confirm. If PCP unable to monitor, patient agreeable to [facility] appt next week. - Luann Rodgers [facility] 04/11/23 2:58 PM Luann Rodgers, [facility] 04/11/23 1459 [facility] 03-06-2022 Note Reason For Visit Indication palpitation and atrial fibrillation Procedure: Patient underwent 30-day event monitor. Baseline rhythm is sinus/sinus pericardia. During the monitoring period 2 PVCs were seen. No symptoms were reported. Conclusion 1. Normal sinus rhythm 2. Rare PVCs 3. No significant tacky or bradycardia arrhythmia 4. No symptoms entered by the patient Event Monitor: GUSTAVO is here for the application of a 30 day event monitor in office., Diagnosis: palps/ paf Ordering Physician: Dr. Phillip Ford MD Enrollment sent to: [employer] Monitor number [id number] applied. Holter monitor printed and placed on Dr. Phillip Ford MD desk to dictate. Diagnosis/Problems Assessed Palpitations (785.1) (R00.2) Paroxysmal atrial fibrillation (427.31) (I48.0) Future Appointments Date/TimeProviderSpecialtySite 09/19/2022 09:40 Phillip Méndez [id number] 600 DO Signatures Electronically signed by : Phillip Ford MD; Apr 15 2022 5:34PM EST (Author) [employer] 10-16-2021 History of Presen t illness Narrative Patient is here for follow-up and management for dilated aortic root, paroxysmal atrial fibrillation, long-term anticoagulation, hypertension and obesity. Since last time I saw him he denies any change in cardiac status or symptoms. Discussed functional class I. His CT scan showed his aortic root is stable at 4.7 cm. Recent laboratory data noted but no lipid profile was found. He reports he had 1 visit to the emergency room because of elevated blood pressure transiently and his blood pressure has been well controlled since then.Assessment1. Mildly dilated aortic root at 4.[address] scan done a year ago2. History of paroxysmal atrial fibrillation underwent SIL guided cardioversion and no recurrence since . Long-term anticoagulation with place tolerating that well4. Hypertension controlled5. Recent diagnosis diabetes mellitus6. Obesity weight changes7. Hyperlipidemia is controlledPlan1. I recommend to the patient to continue present medical therapy2. Risk, benefits alternative anticoagulation reviewed with patient he understood and agreed3. Patient was counseled regarding losing weight, exercise and dietary modification4. I reviewed with him the results of his recent laboratory data5. I recommended repeat his lipid profile6. Follow-up in 9 months with EKG [facility] 600 DO Work Phone: 08-15-2021 Note CONSULTATION CONSULTATION DATE: 08/15/2021 HISTORY OF PRESENT ILLNESS: This is a pleasant, 60-year-old gentleman returning to the clinic status post right hip injection completed on 07/31/2021 that afforded him 100% relief and is ongoing. The patient is very pleased with his results and has been able to work in the yard and do all other household activities including bending, pushing and walking without pain. He continues to take his baclofen 10 mg q.h.s., Tylenol p.r.n., fish oil, turmeric and multivitamin. He is on Eliquis and unable to take oral NSAIDs. Patient has no other complaints today. Patient's REVIEW OF SYSTEMS / PAST MEDICAL HISTORY / ALLERGIES and IMAGES have been reviewed and they are noted on the chart. PHYSICAL EXAM: VITALS: Blood pressure is 140/86. Heart rate is 60. Temperature is 98. He is 5'11 and weighs 118 kg. FOCUSED EXAM: Right hip without crepitus. Full range of motion in adduction, abduction and lateral raises. BACK: Paravertebral muscles are non-spasmodic. Range of motion is functional in lateral rotation and flexion/extension. MUSCULOSKELETAL: Motor is intact, 5/5 bilaterally. Patient walks with a stable gait. Does not use an assistive device. NEUROLOGICALLY: Radicular sensory is intact. Negative polyneuropathy. Bilateral patellar reflexes are +2. IMPRESSION: Right hip osteoarthritis, right hip pain. Overall, patient is doing great. PLAN: Education was given regarding continuing his multivitamin regimen as well as proper nutrition. Patient is to follow up with the clinic on a p.r.n. basis. Patient agrees with the plan of care and all questions answered. [facility] Signed and Approved by: KATE TIM . 08/23/2021 16:08:00 [facility] 07-12-2021 Note CONSULTATION Consultation Date:07/12/2021 PAIN MANAGEMENT CONSULTATION HISTORY OF PRESENT ILLNESS: This is a pleasant, 60-year-old gentleman who returns to the clinic for follow up and review of right hip and lumbar x-ray. He was first seen on 06/05/2021 as a new patient. At that time, his pain was 4/10. Today, it is 3/10, described as an ache. His right hip is his primary location of pain. Today, he is also complaining of cervical pain to the left side and left trapezius muscle. He is unable to laterally rotate his neck to the left. He is able to rotate to the right but it is decreased. He does have some shooting pain that does not extend below the shoulder. 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 Sleeping and heat application decreases his pain. He recently has started aquatic therapy and has attended two visits and is very happy with it. It does decrease his pain pattern. His left hip x-ray does reveal sclerotic changes along the right superior acetabulum and one favors degenerative change. Film was negative for acute fracture or dislocation. His lumbar films reveal multilevel disc space narrowing, most significant at L5-S1. He denies vasomotor weakness or new radicular pain since his first appointment. Medication includes Eliquis, baclofen 10 mg q.h.s. and Tylenol. Patient's REVIEW OF SYSTEMS / PAST MEDICAL HISTORY / ALLERGIES and IMAGES have been reviewed and they are noted on the chart. PHYSICAL EXAM: VITALS: Blood pressure 136/80, heart rate is 65. Temperature is 98. He is 5'11 , weighs 119 kg. GENERAL APPEARANCE: Pleasant, appropriate, sitting in the chair, without any acute distress. FOCUSED EXAM - NECK: Rotation and range of motion is decreased and guarded bilaterally, left greater than right. Bilateral trapezial tautness, however, not spasmodic. Spinal axial pain is reproduced to direct facet compression along C4, C5 and C6, C7 right greater than left. BACK: Spinal axial pain is reproduced to direct compression along the posterior elements of the facets of L2, L3 and L4, L5 bilaterally, with slight referral pain to bilateral hips. Kelle's point is non-tender bilaterally. Right hip decreased range of motion to adduction and abduction secondary to pain. Minimal crepitus palpated. MUSCULOSKELETAL: Motor is intact, 4/5 bilaterally. Ambulates with a steady gait. Does not use assistive device. NEUROLOGICAL: Radicular sensory is intact. Negative polyneuropathy. IMPRESSION: Right hip osteoarthritis, lumbar degenerative disc disease, lumbar spondylosis and cervical neuritis, cervical spondylosis. PLAN: We will obtain a cervical flexion and extension x-ray. After discussing with the patient regarding various techniques to address his pain, we will start with a right hip intra-articular joint injection. We will gait authorization to hold his Eliquis per Dr. Ford. In the future, we will look to address both cervical and lumbar MBBs as well. In the meantime, he is to use Voltaren gel mixed with Vicks VapoRub to his affected areas at least once a day. Patient agrees with plan of care and would like to proceed. He will be followed up in the office post procedure and, at that time, we will review cervical x-rays with him as wel [facility] Signed and Approved by: KATE TIM . 07/18/2021 16:14:00 [facility] Evaluation + Plan note No data available for this section [facility] Evaluation note Diagnosis S/P AVR (aortic valve replacement)- Primary Heart valve replaced by other means Aneurysm of ascending aorta without rupture ([facility]-HCC) Paroxysmal atrial fibrillation ([facility]) Atrial fibrillation Anticoagulant long-term use Encounter for long-term (current) use of 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 [facility] S/P AVR (aortic valve replacement)- Primary Heart valve replaced by other means Atrial fibrillation [facility] Patient is here for follow-up continue management for history of dilated aortic root, paroxysmal atrial fibrillation with prior cardioversion, hypertension and obesity. Since last time I saw him he reports his been having symptoms of palpitation and he think he may be having panic attacks. It is unclear to me whether he is having some arrhythmia generating discussion of symptoms. He denies lightheadedness, dizziness or syncope. He underwent previous cardiac work-up. His heart cath several yearsago showed no evidence of coronary artery disease. His last CT scan showed his aortic root dilatation is stable over the last several years. * Assessment * 1. Mildly dilated aortic root at 4.[address] scan done here and had been stable over the last several years we will plan on repeating it in 1 to 2 years * 2. History of paroxysmal atrial fibrillation underwent SIL guided cardioversion and no recurrence but he reports symptoms of palpitation unclear whether it is related to panic attack or arrhythmia * 3. Long-term anticoagulation with place tolerating that well * 4. Hypertension controlled * 5. Diabetes mellitus * 6. Obesity minimal weight gain * 7. Hyperlipidemia is controlled. Recent lab noted and reviewed with him * 8. Palpitation and probable anxiety and panic attacks * 9. Mild sinus bradycardia asymptomatic * Plan * 1. I recommend to the patient to continue present medical therapy for now * 2. Risk, benefits alternative anticoagulation reviewed with patient he understood and agreed * 3. Patient was counseled regarding losing weight, exercise and dietary modification * 4. I reviewed with him the results of his recent laboratory data * 5. I recommended 30-day event monitor to assess if his symptoms driven by arrhythmia or simply panic attack * 6. Follow-up in 6 months with EKG * 7. We will plan on repeating his CT scan in 1 to 2 years for follow-up for his dilated aortic root * 8. Patient advised to notify me with change in cardiac status or symptoms and I advised him to monitor his blood pressure closely -[facility] 600 DO Work Phone: History of Present illness Narrative* Patient is here for follow-up continue management for history of dilated aortic root, paroxysmal atrial fibrillation, hypertension and obesity. Since last time I saw him he describes symptoms of mildfatigue and tiredness but denies any chest pain, lightheadedness, dizziness or syncope. Patient remains reasonably active. His heart rate today is in the 50s. * Assessment * 1. Mildly dilated aortic root at 4.[address] scan done here and had been stable over the last several years we will plan on repeating next year * 2. History of paroxysmal atrial fibrillation underwent SIL guided cardioversion and no recurrence time he was describing some palpitation but monitor failed to demonstrate any arrhythmia * 3. Long-term anticoagulation with place tolerating that well * 4. Hypertension controlled * 5. Diabetes mellitus * 6. Obesity minimal weight gain * 7. Hyperlipidemia is controlled. Recent lab noted and reviewed with him * 8. Palpitation resolved * 9. Mild sinus bradycardia. Patient describes some symptoms of fatigue * Plan * 1. I recommend to the patient to please his atenolol to 100 mg daily considering his symptoms of fatigue and tiredness * 2. Risk, benefits alternative anticoagulation reviewed with patient he understood and agreed * 3. Patient was counseled regarding losing weight, exercise and dietary modification * 4. I reviewed with him the results of his recent laboratory data * 5. I with his Holter monitor * 6. Follow-up in 9 months with plan to repeat his CTA of the chest to assess his aortic root * 7. Patient advised to notify me with change in cardiac status or symptoms and I advised him to monitor his blood pressure closely [facility] 600 DO Work Phone: Hospital Discharge instructions No data available for this section [facility]ructionsNot on filedocumented in this encounter [facility]Not on filedocumented in this encounter [facility] SystemInstructionsNot on filedocumented in this encounter [facility] SystemInstructionsNot on filedocumented in this encounter [facility] SystemInstructionsNot on filedocumented in this encounter [facility] SystemProgress note No data available for this section [facility] for referral (narrative)* Consultation (Routine) - Pending Review Specialty Diagnoses / Procedures Referred By Contac t Referred To Contact Cardiac Rehabilitation Diagnoses Aneurysm of ascending aorta without rupture ([facility]) S/P AVR (aortic valve replacement) Procedures Ambulatory referral to Cardiac Rehabilitation (Non-[facility]) Matthew Hood MD [address] [place] [address] Referral ID Status Reason Start Date Expiration Date V isits Requested Visits Authorized [id number] Pending Review 03/28/2023 03/27/2024 36 36 * Cardiology (Routine) - Pending Review Specialty Diagnoses / Procedures Referred By Contac t Referred To Contact Diagnoses Aneurysm of ascending aorta without rupture ([facility]) S/P AVR (aortic valve replacement) Procedures Echo complete W/O contrast Matthew Hood MD [address] [place] [address] Referral ID Status Reason Start Date Expiration Date V isits Requested Visits Authorized [id number] Pending Review 03/28/2023 03/27/2024 1 1 [facility] Summary Purpose Family History No Family History Records FoundUnknown Family Member Name Dates Details Family history of abdominal aortic aneurysm (AAA): Father, Sister, Brother(V17.49, Z82.49) Status:Active Family history of cerebral a neurysm: Brother(V17.1, Z82.49) Status:Active Malignant neoplasm of cerebe llum: Sister Status:Active Family history of cardiomega ly: Mother(V17.49, Z82.49) Status:Active Family history of diabetes m ellitus: Mother(V18.0, Z83.3) Status:Active Unknown Family Member Name Dates Details Family history of abdominal aortic aneurysm (AAA): Father, Sister, Brother(V17.49, Z82.49) Status:Active Family history of cerebral a neurysm: Brother(V17.1, Z82.49) Status:Active Malignant neoplasm of cerebe llum: Sister Status:Active Family history of cardiomega ly: Mother(V17.49, Z82.49) Status:Active Family history of diabetes m ellitus: Mother(V18.0, Z83.3) Status:Active Unknown Family Member Name Dates Details Family history of abdominal aortic aneurysm (AAA): Father, Sister, Brother(V17.49, Z82.49) Status:Active Family history of cerebral a neurysm: Brother(V17.1, Z82.49) Status:Active Malignant neoplasm of cerebe llum: Sister Status:Active Family history of cardiomega ly: Mother(V17.49, Z82.49) Status:Active Family history of diabetes m ellitus: Mother(V18.0, Z83.3) Status:Active Unknown Family Member Name Dates Details Family history of abdominal aortic aneurysm (AAA): Father, Sister, Brother(V17.49, Z82.49) Status:Active Family history of cerebral a neurysm: Brother(V17.1, Z82.49) Status:Active Malignant neoplasm of cerebe llum: Sister Status:Active Family history of cardiomega ly: Mother(V17.49, Z82.49) Status:Active Family history of diabetes m ellitus: Mother(V18.0, Z83.3) Status:Active Unknown Family Member Name Dates Details Family history of abdominal aortic aneurysm (AAA): Father, Sister, Brother(V17.49, Z82.49) Status:Active Family history of cerebral a neurysm: Brother(V17.1, Z82.49) Status:Active Malignant neoplasm of cerebe llum: Sister Status:Active Family history of cardiomega ly: Mother(V17.49, Z82.49) Status:Active Family history of diabetes m ellitus: Mother(V18.0, Z83.3) Status:Active Unknown Family Member Name Dates Details Family history of abdominal aortic aneurysm (AAA): Father, Sister, Brother(V17.49, Z82.49) Status:Active Family history of cerebral a neurysm: Brother(V17.1, Z82.49) Status:Active Malignant neoplasm of cerebe llum: Sister Status:Active Family history of cardiomega ly: Mother(V17.49, Z82.49) Status:Active Family history of diabetes m ellitus: Mother(V18.0, Z83.3) Status:Active Unknown Family Member Name Dates Details Family history of abdominal aortic aneurysm (AAA): Father, Sister, Brother(V17.49, Z82.49) Status:Active Family history of cerebral a neurysm: Brother(V17.1, Z82.49) Status:Active Malignant neoplasm of cerebe llum: Sister Status:Active Family history of cardiomega ly: Mother(V17.49, Z82.49) Status:Active Family history of diabetes m ellitus: Mother(V18.0, Z83.3) Status:Active Unknown Family Member Name Dates Details Family history of abdominal aortic aneurysm (AAA): Father, Sister, Brother(V17.49, Z82.49) Status:Active Family history of cerebral a neurysm: Brother(V17.1, Z82.49) Status:Active Malignant neoplasm of cerebe llum: Sister Status:Active Family history of cardiomega ly: Mother(V17.49, Z82.49) Status:Active Family history of diabetes m ellitus: Mother(V18.0, Z83.3) Status:Active Unknown Family Member Name Dates Details Family history of diabetes m ellitus: Mother(V18.0, Z83.3) Status:Active Family history of cardiomega ly: Mother(V17.49, Z82.49) Status:Active Malignant neoplasm of cerebe llum: Sister Status:Active Family history of cerebral a neurysm: Brother(V17.1, Z82.49) Status:Active Family history of abdominal aortic aneurysm (AAA): Father, Sister, Brother(V17.49, Z82.49) Status:Active Unknown Family Member Name Dates Details Family history of abdominal aortic aneurysm (AAA): Father, Sister, Brother(V17.49, Z82.49) Status:Active Family history of cerebral a neurysm: Brother(V17.1, Z82.49) Status:Active Malignant neoplasm of cerebe llum: Sister Status:Active Family history of cardiomega ly: Mother(V17.49, Z82.49) Status:Active Family history of diabetes m ellitus: Mother(V18.0, Z83.3) Status:Active Unknown Family Member Name Dates Details Family history of abdominal aortic aneurysm (AAA): Father, Sister, Brother(V17.49, Z82.49) Status:Active Family history of cerebral a neurysm: Brother(V17.1, Z82.49) Status:Active Malignant neoplasm of cerebe llum: Sister Status:Active Family history of cardiomega ly: Mother(V17.49, Z82.49) Status:Active Family history of diabetes m ellitus: Mother(V18.0, Z83.3) Status:Active Unknown Family Member Name Dates Details Family history of abdominal aortic aneurysm (AAA): Father, Sister, Brother(V17.49, Z82.49) Status:Active Family history of cerebral a neurysm: Brother(V17.1, Z82.49) Status:Active Malignant neoplasm of cerebe llum: Sister Status:Active Family history of cardiomega ly: Mother(V17.49, Z82.49) Status:Active Family history of diabetes m ellitus: Mother(V18.0, Z83.3) Status:Active Unknown Family Member Name Dates Details Family history of abdominal aortic aneurysm (AAA): Father, Sister, Brother(V17.49, Z82.49) Status:Active Family history of cerebral a neurysm: Brother(V17.1, Z82.49) Status:Active Malignant neoplasm of cerebe llum: Sister Status:Active Family history of cardiomega ly: Mother(V17.49, Z82.49) Status:Active Family history of diabetes m ellitus: Mother(V18.0, Z83.3) Status:Active Unknown Family Member Name Dates Details Family history of abdominal aortic aneurysm (AAA): Father, Sister, Brother(V17.49, Z82.49) Status:Active Family history of cerebral a neurysm: Brother(V17.1, Z82.49) Status:Active Malignant neoplasm of cerebe llum: Sister Status:Active Family history of cardiomega ly: Mother(V17.49, Z82.49) Status:Active Family history of diabetes m ellitus: Mother(V18.0, Z83.3) Status:Active Advance Directives No Advanced Directives Records FoundLatest Code Status on File Code Status Date Activated Date Inactivated Comments Full Code 02/27/2023 12:12 PM 03/04/2023 5:06 PM Latest Code Status on File Code Status Date Activated Date Inactivated Comments Full Code 02/27/2023 12:12 PM 03/04/2023 5:06 PM Chief Complaint GUSTAVO ELIZABETH is being seen for a 9 month follow-up of.GUSTAVO JOHNSON is being seen for a 9 month follow-up of.GUSTAVO JOHNSON is being seen for a 6 month follow-up of. Additional Source Comments (unrecognized sect ion and content) No Status Records FoundNo Status Records FoundNo Status Records FoundNo Status Records FoundNo Status Records FoundNo Status Records FoundNo Status Records FoundNo Status Records Found INFORMATION SOURCE (unrecogn ized section and content) DATE CREATED AUTHOR 08/07/2019 [facility] DATE CREATED AUTHOR AUTHOR'S ORGANIZ ATION 06/16/2022 [facility] DATE CREATED AUTHOR AUTHOR'S ORGANIZ ATION 09/13/2022 [facility] DATE CREATED AUTHOR AUTHOR'S ORGANIZ ATION 09/13/2022 [employer] DATE CREATED AUTHOR AUTHOR'S ORGANIZ ATION 03/10/2023 [facility] DATE CREATED AUTHOR AUTHOR'S ORGANIZ ATION 03/30/[address] [facility] DATE CREATED AUTHOR AUTHOR'S ORGANIZ ATION 06/19/2023 [facility] DATE CREATED AUTHOR AUTHOR'S ORGANIZ ATION 07/07/2023 [facility] EPIC Reason for Visit (unrecogniz ed section and content) Reason Comments Follow-up post op 02/27/23 [facility] NDING AORTIC ANEURYSM REPAIR WITH REPLACEMENT OF AORTIC ROOT AND AORTIC VALVE REPLACEMENT -MODIFIED BENTALL PROCEDURE USING ON-X ASCENDING AORTIC PROSTHESIS/LIGATION OF ATRIAL APPENDAGE WITH 45MM PENDITURE CLAMP/SIL SCHED W/PT Reason Comments Med Refill Reason Onset Date Comments overdue INR (1st attempt) 05/13/2023 Care Teams (unrecognized sec tion and content) Forensic Specialist Relationship Specialty Start Date End Date Eugene Mariscal MD [address] [place] [address] PCP - General Family Medicine 08/16/20 Forensic Specialist Relationship Specialty Start Date End Date Eugene Mariscal MD [address] [place] [address] PCP - General Family Medicine 08/16/20 Forensic Specialist Relationship Specialty Start Date End Date Eugene Mariscal MD [address] [place] [address] PCP - General Family Medicine 08/16/20 Forensic Specialist Relationship Specialty Start Date End Date Eugene Mariscal MD [address] [place] [address] PCP - General Family Medicine 08/16/20 FOR RECORDS PERTAINING TO PATIENTS WHO ARE OR HAVE BEEN ENROLLED IN A CHEMICAL DEPENDENCY/SUBSTANCEABUSE PROGRAM, SOME INFORMATION MAY BE OMITTED. This clinical summary was aggregated from multiple sources. Caution should be exercised in using it in the provision of clinical care. This summary normalizes information from multiple sources, and as a consequence, information in this document may materially change the coding, format and clinical context of patient data. In addition, data may be omitted in some cases. CLINICAL DECISIONS SHOULD BE BASED ON THE PRIMARY CLINICAL RECORDS. [employer] provides no warranty or guarantee of the accuracy or completeness of information in this document.
[2023-07-09 09:53] LABS: Basophils Absolute Auto 0.1 10^3/uL (0.0-0.1); Basophils Percent Auto 1.2 % (0.2-2.0); Eosinophils Absolute Auto 0.3 10^3/uL (0.0-0.7); Eosinophils Percent Auto 4.4 % (0.9-7.0); Hematocrit 42.9 % (42.0-54.0); Hemoglobin 14.1 g/dL (14.0-18.0); Immature Granulocytes Abs Auto 0.01 10^3/uL (0.00-0.03); Immature Granulocytes Pct Auto 0.1 % (0.0-0.5); Lymphocytes Absolute Auto 2.5 10^3/uL (1.2-3.8); Mean Corpuscular HGB Conc 32.9 g/dL (29.9-35.2); Mean Corpuscular Hemoglobin 28.4 pg (25.9-34.0); Mean Corpuscular Volume 86.3 fL (80.0-94.0); Monocytes Absolute Auto 0.7 10^3/uL (0.3-0.8); Monocytes Percent Auto 9.3 % (1.7-12.0); Neutrophils Absolute Auto 3.8 10^3/uL (1.4-6.5); Platelet Count 221 10^3/uL (150-450); Red Blood Count 4.97 10^6/uL (4.70-6.10); Red Cell Distribution Width 13.6 % (11.0-15.0); White Blood Count 7.4 10^3/uL (4.0-11.0)
[2023-07-09 10:02] LABS: Microalbumin Urine Random 1.4 mg/dL (<=30.0)
[2023-07-09 11:09] LABS: Prostate Specific Antigen Dx 0.31 ng/mL (<=4.00)
[2023-07-09 11:15] LABS: Estimated Average Glucose 148 mg/dL; Glycohemoglobin A1C 6.8 % (4.5-6.2)
[2023-07-09 11:50] LABS: Alanine Aminotransferase 33 U/L (16-63); Albumin Globulin Ratio 1.1; Albumin Level 3.8 g/dL (3.4-5.0); Alkaline Phosphatase 76 U/L (46-116); Anion Gap 14.5; Aspartate Amino Transferase 23 U/L (15-37); BUN Creatinine Ratio 15.3; Bilirubin Direct 0.1 mg/dL (0.0-0.2); Bilirubin Total 0.4 mg/dL (0.2-1.0); Calcium 9.2 mg/dL (8.5-10.1); Carbon Dioxide 24.3 mmol/L (21.0-32.0); Chloride 106 mmol/L (98-107); Chol HDL Ratio 4.4; Cholesterol 137 mg/dL (<=200); Estimated GFR (African America >60 (>=60); Estimated GFR (Non-African Ame >60 (>=60); Globulin 3.4 g/dL; Glucose 55 mg/dL (74-106); HDL Cholesterol 31 mg/dL (40-60); Potassium 3.8 mmol/L (3.5-5.1); Sodium 141 mmol/L (136-145); Thyroid Stimulating Hormone 2.293 uIU/mL (0.358-3.740); Total Protein 7.2 g/dL (6.4-8.2); Triglycerides 200 mg/dL (<=150)
== END 2023-07-09 09:21 | disposition home or self-care (01) ==
LOC: LAB 09:23
PROVIDERS: PCP Family Medicine; Visit Provider Family Medicine
DX: E11.65 Type 2 diabetes mellitus with hyperglycemia (principal); E55.9 Vitamin D deficiency, unspecified; I10 Essential (primary) hypertension; Z79.899 Other long term (current) drug therapy; E66.9 Obesity, unspecified; Z12.5 Encounter for screening for malignant neoplasm of prostate
CPT/HCPCS: 36415; 80048; 80061; 80076; 82043; 82306; 83036; 84153; 84443; 85025

== ENCOUNTER 2023-07-23 00:24 | Outpatient (RCR) | payer OTHER, SELFPAY | END 2023-08-22 11:22 | disposition home or self-care (01) | LOC: MM 00:24 | PROVIDERS: PCP Family Medicine; Visit Provider Internal Medicine | DX: Z51.81 Encounter for therapeutic drug level monitoring (principal); Z79.01 Long term (current) use of 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; Z95.2 Presence of prosthetic heart valve | CPT/HCPCS: 85610; G0463 ==

== ENCOUNTER 2023-08-25 03:18 | Outpatient (RCR) | payer OTHER, SELFPAY | END 2023-09-19 10:48 | disposition home or self-care (01) | LOC: MM 03:18 | PROVIDERS: PCP Family Medicine; Visit Provider Internal Medicine | DX: Z51.81 Encounter for therapeutic drug level monitoring (principal); Z79.01 Long term (current) use of 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; Z95.2 Presence of prosthetic heart valve ==

== ENCOUNTER 2023-09-22 00:27 | Outpatient (RCR) | payer OTHER, SELFPAY | END 2023-10-22 10:07 | disposition home or self-care (01) | LOC: MM 00:27 | PROVIDERS: PCP Family Medicine; Visit Provider Internal Medicine | DX: Z51.81 Encounter for therapeutic drug level monitoring (principal); Z79.01 Long term (current) use of 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; Z95.2 Presence of prosthetic heart valve | CPT/HCPCS: 85610; G0463 ==

== ENCOUNTER 2023-10-23 00:23 | Outpatient (RCR) | payer OTHER, SELFPAY | END 2023-11-21 10:00 | disposition home or self-care (01) | LOC: MM 00:23 | PROVIDERS: PCP Family Medicine; Visit Provider Internal Medicine | DX: Z51.81 Encounter for therapeutic drug level monitoring (principal); Z79.01 Long term (current) use of 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; Z95.2 Presence of prosthetic heart valve | CPT/HCPCS: 85610; G0463 ==

== ENCOUNTER 2023-11-16 05:07 | Emergency (ER) | payer OTHER, SELFPAY ==
[2023-11-16 05:11] VITALS: BP 139/92; PULSE 80; TEMP 36.6; O2SAT 96; BMI 34.9
--- OUTSIDE RECORDS SUMMARY | 2023-11-16 05:12 | XMS_ITS | CCD ---
Author Organization [facility] Care Team Providers Care Chemical Engineering Technologist Name Role Phone Unknown, Referring Provider Unavailable Unav ailable Unavailable Unavailable Reginaldo, Eugene Wills Unavailable SHAIKH Imelda ORTEGA Admitting Unavailable SHAIKH Imelda ORTEGA Attending Unavailable NADEREEric, DR EUGENE Wills Primary Care Unavailable SHAIKH Imelda ORTEGA Consulting Unavailable NEFCYCECILIO Consulting Unavailable NADEREEric, DR EUGENE Wills Admitting Unavailable NADERER, DR [...] Admitting Unavailable MISC, DR PHAN Attending Unavailable NADERER, DR EUGENE Wills Primary Care Unavailable IRVING, DR ADRI Hernandez Consulting Unavailable GLENROY .KATE Consulting Unavailable DEL VALLE ., DR AILYN Simpson Admitting Unavailable DEL VALLE ., DR AILYN Simpson Attending Unavailable NADERER, DR EUGENE Wills Primary Care Unavailable TIM .KATE Consulting Unavailable DEL VALLE ., DR AILYN Simpson Admitting Unavailable DEL VALLE ., DR AILYN Simpson Attending Unavailable NADEREEric, DR EUGENE Wills Primary Care Unavailable DEL VALLE ., DR AILYN Simpson Consulting Unavailable DEL VALLE ., DR AILYN Simpson Admitting Unavailable DEL VALLE ., DR AILYN Simpson Attending Unavailable NADERER, DR EUGENE Wills Primary Care Unavailable TIM ., KATE Consulting Unavailable Traboulssi, Dr. Fisher Attending Unavaila ble Nadereeric, Dr. Eugene Barraza Primary Care Unavai lable Trabuziel, Dr. Fisher Referring Unavaila ble Traboulssi, Dr. Fisher Attending Unavaila ble Naderer, Dr. Eugene Barraza Primary Care Unavai lable Logan, Dr. Fisher Referring Unavaila ble Traboulssi, Dr. Fisher Attending Unavaila ble Naderer, Dr. Eugene Barraza Primary Care Unavai lable Trabuziel, Dr. Fisher Referring Unavaila ble Naderer, Dr. Eugene Barraza Primary Care Unavai lable Trabmandoi, Dr. Fisher Attending Unavaila ble Traboulssi, Dr. Fisher Referring Unavaila ble Traboulssi, Dr. 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 [id number] 02-28-2023 [id number] DATE OF VISIT: PREOPERATIVE DIAGNOSIS: Severe aortic [...] [employer] Clips. SURGEON: David Black MD. ENVIRONMENTAL COMPLIANCE INSPECTOR: FIDE Cueva ATTENDING ANESTHESIOLOGIST: ATTENDING PRIMARY CARE [...] carefully de-air (more content not included)... Normal [facility] Office Visit (Cardiology)on 09-12-2022 Follow-up visit Diagnoses/Problems [...] Metabolic Panel; Status:Active - Retrospective Authorization; Requested for:[id number]; SocHx: Never a smoker Tobacco Use Screening; Status:Complete; Done: [id number] Patient Instructions Please bring all medicines, vitamins, [...] Follow up in 9 months Chief Complaint ROXANN JOHNSON is being seen for a 6 [...] Signs Recorded: 12Sep2022 10:11AM Heart Rate52, Apical Qwccfzoy503, LUE, Sitting Udpwmmogu93, LUE, Sitting Height5 ft 11 in Mpulyc920 lb BMI Adfvptczhz60.84 kg/m2 BSA Calculated2.35 Tobacco Useb) No PHQ-2 #1. Over the last 2 weeks have you felt down, depressed or hopeless? (If yes, answer PHQ-9 below)No PHQ-2 #2. Over the last 2 weeks have you felt little interest or pleasure in (more content not included)... Normal [facility] Physician Orderon 09-12-2022 Physician Order [id number]#1. 00CD:[address] [facility] Tobacco Screening.on 023 Adult depression screening assessment No formerly [facility] [employer] DO Work Phone: Fall risk assessment a) No falls within the last year formerly [facility] [employer] DO Work Phone: Tobacco use status CPHS b) No formerly [facility] [employer] DO Work Phone: CBC AUTO DIFFon 03-21-2023 BASO # 0.1 103/ul Normal 0.0-0.1 Comment on above: Performed By: #### C BC #### [facility] [address] [place] [address] Dr. Doug Payne Basophils/100 WBC (Bld) 1.2 % Normal 0.2-2.0 Comment on above: Performed By: #### C BC #### [facility] [address] [place] [address] Dr. Doug Payne EO # 0.4 103/ul Normal 0.0-0.7 Comment on above: Performed By: #### C BC #### [facility] [address] [place] [address] Dr. Doug Payne Eosinophils/100 WBC (Bld) 5.5 % Normal 0.9-7.0 Comment on above: Performed By: #### C BC #### [facility] [address] [place] [address] Dr. Doug Payne Erythrocyte distribution width (RBC) [Ratio] 13.4 % Normal 11.0-15.0 Comment on above: Performed By: #### C BC #### [facility] [address] [place] [address] Dr. Doug Payne Hematocrit (Bld) [Volume fraction] 42.2 % Normal 42.0-54.0 Comment on above: Performed By: #### C BC #### [facility] [address] [place] [address] Dr. Doug Payne Hemoglobin (Bld) [Mass/Vol] 14.4 g/dL Normal 14.0-18.0 Comment on above: Performed By: #### C BC #### [facility] [address] [place] [address] Dr. Doug Payne IG # 0.02 10e3/ul Normal 0.00-0.03 Comment on above: Performed By: #### C BC #### [facility] [address] [place] [address] Dr. Doug Payne IG % 0.3 % Normal 0.0-0.5 Comment on above: Performed By: #### C BC #### [facility] [address] [place] [address] Dr. Doug Payne LYMPH # 2.8 103/ul Normal 1.2-3.8 Comment on above: Performed By: #### C BC #### [facility] [address] [place] [address] Dr. Doug Payne Lymphocytes/100 WBC (Bld) 42.8 % Normal 20.5-60.0 Comment on above: Performed By: #### C BC #### [facility] [address] [place] [address] Dr. Doug Payne MANUAL DIFF REQ NO Normal [facility] Comment on above: Performed By: #### C BC #### [facility] [address] [place] [address] Dr. Doug Payne MCH (RBC) [Entitic mass] 30.2 pg Normal 25.9-34.0 Comment on above: Performed By: #### C BC #### [facility] [address] [place] [address] Dr. Doug Payne MCHC (RBC) [Mass/Vol] 34.1 g/dL Normal 29.9-35.2 Comment on above: Performed By: #### C BC #### [facility] [address] [place] [address] Dr. Doug Payne MCV (RBC) [Entitic vol] 88.5 fL Normal 80.0-94.0 Comment on above: Performed By: #### C BC #### [facility] [address] [place] [address] Dr. Doug Payne MONO # 0.7 103/ul Normal 0.3-0.8 Comment on above: Performed By: #### C BC #### [facility] [address] [place] [address] Dr. Doug Payne Monocytes/100 WBC (Bld) 10.8 % Normal 1.7-12.0 Comment on above: Performed By: #### C BC #### [facility] [address] [address] [address] Doug Payne NEUT # 2.6 103/ul Normal 1.4-6.5 Comment on above: Performed By: #### C BC #### [facility] [address] [address] [address] Doug Payne Neutrophils/100 WBC (Bld) 39.4 % Critically low 43.0-75.0 Comment on above: Performed By: #### C BC #### [facility] [address] [address] [address] Doug Payne Platelet mean volume (Bld) [Entitic vol] 9.0 fL Critically low 9.5-13.5 Comment on above: Performed By: #### C BC #### [facility] [address] [address] [address] Doug Payne PLT 207 103/ul Normal 150-450 Comment on above: Performed By: #### C BC #### [facility] [address] [address] [address] Doug Payne RBC 4.77 106/ul Normal 4.70-6.10 Comment on above: Performed By: #### C BC #### [facility] [address] [address] [address] Doug Payne WBC 6.5 103/ul Normal 4.0-11.0 Comment on above: Performed By: #### C BC #### [facility] [address] [address] [address] Doug Payne GLYCOHEMOGLOBIN A1Con 2022 ADA RECOMMENDATION SEE BELOW Normal [facility] Comment on above: Result Comment: ADA RECOMMENDED LIMIT 4.0 - 6.0 ADA THERAPEUTIC TARGET < 7.0 ACTION SUGGESTED > 7.0 Performed By: #### A 1C ####[facility] [address] [address]Dr. Doug Payne Glucose [Mass/Vol] 160 mg/dL Normal [facility] Comment on above: Performed By: #### A 1C ####[facility] [address] [place], [place] [address]OjDr. Doug Payne HbA1c (Bld) [Mass fraction] 7.2 % Critically high 4.5-6.2 Comment on above: Performed By: #### A 1C ####[facility] [address] [id number]. Doug Payne LIPID PROFILEon 06-11-2022 CHOL-HDL RATIO NORM SEE BELOW Normal [facility] Comment on above: Result Comment: 3.3 - 4.4 LOW RISK 4.4 - 7.1 AVERAGE RISK 7.1 - 11.0 MODERATE RISK >11.0 HIGH RISK Performed By: #### T SH, LIPID, LIVER, BMP #### [facility] [address] [address] [address] Doug Payne Cholesterol [Mass/Vol] 121 mg/dL Normal <=200 Comment on above: Performed By: #### T SH, LIPID, LIVER, BMP #### [facility] [address] [address] [address] Doug Payne Cholesterol in HDL [Mass/Vol] 29 mg/dL Critically low 40-60 Comment on above: Performed By: #### T SH, LIPID, LIVER, BMP #### [facility] [address] [address] [address] Doug Payne Cholesterol in LDL [Mass/Vol] 68.4 mg/dL Normal Comment on above: Performed By: #### T SH, LIPID, LIVER, BMP #### [facility] [address] [address] [address] Doug Payne Cholesterol.total/C holesterol in HDL [Mass ratio] 4.2 {ratio} Normal Comment on above: Performed By: #### T SH, LIPID, LIVER, BMP #### [facility] [address] [address] [address] Doug Payne HDL NORMAL > or = 60 mg/dl - LO W CARDIOVASCULAR RISK <40 mg/dl - HIGH CARDIOVASCULAR RISK Normal Comment on above: Performed By: #### T SH, LIPID, LIVER, BMP #### [facility] [address] [address] [address] Doug Payne LDL CALC NORMAL SEE BELOW Normal [facility] Comment on above: Result Comment: <100 mg/dl OPTIMAL 100 - 129 mg/dl NEAR OR ABOVE OPTIMAL 130 - 159 mg/dl BORDERLINE HIGH 160 - 189 mg/dl HIGH >190 mg/dl VERY HIGH Performed By: #### T SH, LIPID, LIVER, BMP #### [facility] [address] [address] [address] Doug Payne Triglyceride [Mass/Vol] 118 mg/dL Normal <=150 [facility] Comment on above: Performed By: #### T SH, LIPID, LIVER, BMP #### [facility] [address] [address] [address] Doug Payne VLDL CALC 23.6 mg/dL Normal Comment on above: Performed By: #### T SH, LIPID, LIVER, BMP #### [facility] [address] [address] [address] Doug Payne LIVER PROFILEon 06-11-2022 Albumin [Mass/Vol] 4.0 g/dL Normal 3.4-5.0 [facility] Comment on above: Performed By: #### T SH, LIPID, LIVER, BMP #### [facility] [address] [address] [address] Doug Payne Albumin/Globulin [Mass ratio] 1.3 {ratio} Normal Comment on above: Performed By: #### T SH, LIPID, LIVER, BMP #### [facility] [address] [address] [address] Doug Payne ALP [Catalytic activity/Vol] 65 U/L Normal 46-116 [facility] Comment on above: Performed By: #### T SH, LIPID, LIVER, BMP #### [facility] [address] [address] [address] Doug Payne ALT [Catalytic activity/Vol] 36 U/L Normal 16-63 Comment on above: Performed By: #### T SH, LIPID, LIVER, BMP #### [facility] [address] [address] [address] Doug Payne AST [Catalytic activity/Vol] 24 U/L Normal 15-37 Comment on above: Performed By: #### T SH, LIPID, LIVER, BMP #### [facility] [address] [address] [address] Doug Payne BILI, CONJUGATED 0.1 mg/dL Normal 0.0-0.2 [facility] Comment on above: Performed By: #### T SH, LIPID, LIVER, BMP #### [facility] [address] [address] [address] Doug Payne Bilirubin [Mass/Vol] 0.3 mg/dL Normal 0.2-1.0 Comment on above: Performed By: #### T SH, LIPID, LIVER, BMP #### [facility] [address] [place] [address] Dr. Doug Payne Globulin (S) [Mass/Vol] 3.2 g/dL Normal Comment on above: Performed By: #### T SH, LIPID, LIVER, BMP #### [facility] [address] [place] [address] Dr. Doug Payne Protein [Mass/Vol] 7.2 g/dL Normal 6.4-8.2 [facility] Comment on above: Performed By: #### T SH, LIPID, LIVER, BMP #### [facility] [address] [place] [address] Dr. Doug Payne MICROALBUMIN, RAND URon 03- mALB 1.5 mg/L Normal <=30.0 Comment on above: Performed By: #### M ALBR ####[facility] [address] [address]Dr. Doug Payne PROF CHEM 8 (BAS METB)on Anion gap [Moles/Vol] 14.1 mmol/L Normal Comment on above: Performed By: #### T SH, LIPID, LIVER, BMP #### [facility] [address] [address] [address] Doug Payne Calcium [Mass/Vol] 9.1 mg/dL Normal 8.5-10.1 [facility] Comment on above: Performed By: #### T SH, LIPID, LIVER, BMP #### [facility] [address] [address] [address] Doug Payne Chloride [Moles/Vol] 105 mmol/L Normal 98-107 Comment on above: Performed By: #### T SH, LIPID, LIVER, BMP #### [facility] [address] [address] [address] Doug Payne CO2 [Moles/Vol] 25.0 mmol/L Normal 21.0-32.0 [facility] Comment on above: Performed By: #### T SH, LIPID, LIVER, BMP #### [facility] [address] [place] [address] Dr. Doug Payne Creatinine [Mass/Vol] 1.16 mg/dL Normal 0.70-1.30 Comment on above: Performed By: #### T SH, LIPID, LIVER, BMP #### [facility] [address] [address] [address] Doug Payne EGFR-AF ERITREAN >60 Normal >=60 [facility] Comment on above: Performed By: #### T SH, LIPID, LIVER, BMP #### [facility] [address] [place] [address] Dr. Doug Payne EGFR-NON AF ERITREAN >60 Normal >=60 Comment on above: Performed By: #### T SH, LIPID, LIVER, BMP #### [facility] [address] [address] [address] Doug Payne Glucose [Mass/Vol] 143 mg/dL Critically high 74-106 [facility] Comment on above: Performed By: #### T SH, LIPID, LIVER, BMP #### [facility] [address] [address] [address] Doug Payne Potassium [Moles/Vol] 4.1 mmol/L Normal 3.5-5.1 Comment on above: Performed By: #### T SH, LIPID, LIVER, BMP #### [facility] [address] [address] [address] Doug Payne Sodium [Moles/Vol] 140 mmol/L Normal 136-145 [facility] Comment on above: Performed By: #### T SH, LIPID, LIVER, BMP #### [facility] [address] [address] [address] Doug Payne Urea nitrogen [Mass/Vol] 21.0 mg/dL Critically high 7.0-18.0 Comment on above: Performed By: #### T JERONIMO, LIPID, LIVER, BMP #### [facility] [address] [place] [address] Dr. Doug Payne Urea nitrogen/Creatinine [Mass ratio] 18.1 mg/mg Normal Comment on above: Performed By: #### T JERONIMO, LIPID, LIVER, BMP #### [facility] [address] [address] [address] Doug Payne TSHon 06-11-2022 TSH 2.075 uIU/mL Normal 0.358-3.740 [facility] Comment on above: Performed By: #### T JERONIMO, LIPID, LIVER, BMP #### [facility] [address] [place] [address] Dr. Doug Payne XR CHEST 2 Von [...] CECILIO OLVERA Date: 2022-03-19 17:32 Normal [facility] Office Visit (Cardiology)on 03-05-2022 Follow-up visit Diagnoses/Problems [...] Weight Tips; Status:Complete - Retrospective Authorization; Done: [id number] Some eating tips that can help you lose weight.; Status:Complete - Retrospective Authorization; Done: 05Xus3001 Essential hypertension, benign Renew: Lisinopril 40 MG Oral Tablet; TAKE 1 TABLET EVERY DAY Hyperlipemia Renew: Atorvastatin Calcium 10 MG Oral Tablet; take 1 tablet by mouth once daily Palpitations, Paroxysmal atrial fibrillation Renew: Atenolol 100 MG Oral Tablet; TAKE 1 TABLET DAILY IO EKG Electrocardiogram- 12 Lead; Status:Complete; Done: 93Ojx6135 IO Event Monitor 30 days; Status:Active - Perform Order,Retrospective Authorization; Requested for:[id number]; SocHx: Never a smoker Tobacco Use Screening; Status:Complete; Done: [id number] Patient Instructions Please bring all medicines, vitamins, [...] result(s) with the patient: ECG Chief Complaint ROXANN JOHNSON is being seen for a 9 [...] claudication an (more content not included)... Normal [employer] Tobacco Screening.on Fall risk assessment a) No falls within the last year -[facility] [employer] DO Work Phone: Tobacco use status CP b) No -[facility] [employer] DO Work Phone: GLYCOHEMOGLOBIN A1Con 2021 ADA RECOMMENDATION SEE BELOW Normal [facility] Comment on above: Result Comment: ADA RECOMMENDED LIMIT 4.0 - 6.0 ADA THERAPEUTIC TARGET < 7.0 ACTION SUGGESTED > 7.0 Performed By: #### A 1C #### [facility] [address] [address] [address] Doug Payne Glucose [Mass/Vol] 137 mg/dL Normal [facility] Comment on above: Performed By: #### A 1C #### [facility] [address] [address] [address] Doug Payne HbA1c (Bld) [Mass fraction] 6.4 % Critically high 4.5-6.2 Comment on above: Performed By: #### A 1C #### [facility] [address] [address] [address] Doug Payne LIPID PROFILEon 10-17-2021 CHOL-HDL RATIO NORM SEE BELOW Normal [facility] Comment on above: Result Comment: 3.3 - 4.4 LOW RISK 4.4 - 7.1 AVERAGE RISK 7.1 - 11.0 MODERATE RISK >11.0 HIGH RISK Performed By: #### A LT, LIPID, AST ####[facility] [address] [address]Dr. Doug Payne Cholesterol [Mass/Vol] 112 mg/dL Normal <=200 Comment on above: Performed By: #### A LT, LIPID, AST ####[facility] [address] [id number]. Doug Payne Cholesterol in HDL [Mass/Vol] 27 mg/dL Critically low 40-60 [facility] Comment on above: Performed By: #### A LT, LIPID, AST ####[facility] [address] [id number]. Doug Payne Cholesterol in LDL [Mass/Vol] 58.4 mg/dL Normal [facility] Comment on above: Performed By: #### A LT, LIPID, AST ####[facility] [address] [id number]. Doug Payne Cholesterol.total/C holesterol in HDL [Mass ratio] 4.1 {ratio} Normal Comment on above: Performed By: #### A LT, LIPID, AST ####[facility] [address] [address]Dr. Doug Payne HDL NORMAL > or = 60 mg/dl - LO W CARDIOVASCULAR RISK <40 mg/dl - HIGH CARDIOVASCULAR RISK Normal Comment on above: Performed By: #### A LT, LIPID, AST ####[facility] [address] [id number]. Doug Payne LDL CALC NORMAL SEE BELOW Normal [facility] Comment on above: Result Comment: <100 mg/dl OPTIMAL 100 - 129 mg/dl NEAR OR ABOVE OPTIMAL 130 - 159 mg/dl BORDERLINE HIGH 160 - 189 mg/dl HIGH >190 mg/dl VERY HIGH Performed By: #### A LT, LIPID, AST ####[facility] [address] [id number]. Doug Payne Triglyceride [Mass/Vol] 133 mg/dL Normal <=150 [facility] Comment on above: Performed By: #### A LT, LIPID, AST ####[facility] [address] [id number]. Doug Payne VLDL CALC 26.6 mg/dL Normal Comment on above: Performed By: #### A LT, LIPID, AST ####[facility] [address] [place], [place] [address]Br. Doug Payne SGOTon 10-17-2021 AST [Catalytic activity/Vol] 15 U/L Normal 15-37 Comment on above: Performed By: #### A LT, LIPID, AST ####[facility] [address] [place], [place] [address]Hf. Doug Payne SGPTon 10-17-2021 ALT [Catalytic activity/Vol] 23 U/L Normal 16-63 Comment on above: Performed By: #### A LT, LIPID, AST ####[facility] [address] [place], [place] [address]Zy. Doug Payne Office Visit (Cardiology)on 10-16-2021 Follow-up [...] in adult Healthy Weight Tips; Status:Complete; Done: [id number] Hyperlipemia ALT - Alanine Aminotransferase, Serum; Status:Active; Requested for:[id number]; AST; Status:Active; Requested for:[id number]; Lipid Panel; Status:Active; Requested for:[id number]; SocHx: Never a smoker Tobacco Use Screening; Status:Complete; Done: [id number] Patient Instructions Please bring all medicines, vitamins, [...] in 9 months with ecg Chief Complaint ROXANN JOHNSON is being seen for a 9 [...] Recorded: 16Oct2021 11:02AM Heart Rate60, R Radial Gxlmklfd095, RUE, Sitting Booysktzt97, RUE, Sitting Height5 ft 11 in Ioovkq944 lb BMI Ikgjhjlbmi83.57 kg/m2 BSA Calculated2.34 Tobacco Useb) No PHQ-2 [...] Oct 16 2021 11:35AM EST (Author) Normal [employer] Tobacco Screening.on 022 Adult depression screening assessment No formerly [facility] [employer] [address] DO Work Phone: Tobacco use status CPHS b) [facility] Work Phone: XR CSPINE OBL [...] by: ADRI RODRIGUEZ Date: 2021-07-15 10:27 Normal Radiologyon 01-19-[address] Normal [facility] [address] [place] Work Phone: Laboratory - Chemistry and C hemistry - challengeon 01-12-2021 CO2 [Moles/Vol] 26 mmol/L Normal 21-31 [facility] DO Work Phone: No Panel Informationon 01-12 14 {mEq/L} Normal 6-16 [facility] Work Phone: 100 mmol/L below low threshold 101-111 [facility] Work Phone: 4.6 mmol/L Normal 3.5-5.3 [facility] Work Phone: 135 mmol/L Normal 135-145 [facility] DO Work Phone: 9.2 mg/dL Normal 8.9-11.1 [facility] DO Work Phone: 19 {No_Units} Normal 10-20 [facility] [address] DO Work Phone: 1.0 mg/dL Normal 0.5-1.3 [facility] DO Work Phone: 19 mg/dL Normal 5-21 [facility] DO Work Phone: 195 mg/dL Normal 55-199 [facility] DO Work Phone: Comment on above: If this glucose resu lt represents a fasting glucose, interpretation should refer to the following reference range: 55-99 mg/dL >60 Normal >=59 [facility] Work Phone: Comment on above: eGFR is race adjuste d. AA=. Chronic kidney disea se could be indicated at eGFR's of less than 60 mL/min/1.73m2. Kidney failure is indicated at less than 15 mL/min/1.73m2. Tobacco Screening.on 021 Tobacco use status CPHS b) No [facility] [facility] 600 DO Work Phone: Cardiovascular Lab Reporton 04-29-2019 Cardiovascular Lab Report [facility] Patient Name: Roxann Johnson [facility] MR #: [id number] Physician: Jatinder Hastings of Yadira Cobb Medicine Service Date: 04/28/2019 Division of Birthdate: 1960 Cardiology Room #: [facility] [address] [facility]. [place] [address] Cardiovascular Laboratory Report PROCEDURE: Transesophageal echocardiogram and cardioversion. INDICATION: Atrial fibrillation. FELLOW: Summer Villasenor M.D. PROCEDURE IN DETAILS: An informed consent was obtained from the patient after explaining the indication, risks, and benefits, and alternatives. The patient understood and agreed and signed the consent form. The patient was brought to the labor relations teacher and SIL was performed under conscious sedation. [...] Villasenor MD Date Trans: 04/29/2019 07:17 A/ronan [id number] cc: Caroline Blount, MSN, OPERATIONAL RISK MANAGER-C Department Of Surgery [place] [address] [facility] [address] Eugene Mariscal M.D. [address] [facility] [address] [facility] Vital Signs Date Time Vital Sign Value Performing Clinician Bettyi felicity 03-28-2023 08:31-0500 Body height 180.3 cm Matthew Hood MD Work Phone: [facility] 03-28-2023 08:31-0500 Body mass index (BMI) [Ratio] 34.73 kg/m2 [facility] 03-28-2023 08:31-0500 Body weight 112.95 kg Matthew [facility] 03-28-2023 08:31-0500 Diastolic blood pressure 92 mm[Hg] Matthew Hood MD Work Phone: [facility] 03-28-2023 08:31-0500 Heart rate 86 /min Matthew [facility] 03-28-2023 08:31-0500 SaO2% (BldA) [Mass fraction] 92 % Matthew [facility] 03-28-2023 08:31-0500 Systolic blood pressure 126 mm[Hg] Matthew Hood MD Work Phone: [facility] 09-12-2022 10:11-0400 Body height 180.34 cm Eugene Mariscal Work Phone: [facility] [employer] 600 DO Work Phone: 09-12-2022 10:11-0400 Body mass index (BMI) [Ratio] 35.84 kg/m2 Eugene Mariscal Work Phone: [facility] [employer] 600 DO Work Phone: 09-12-2022 10:11-0400 Body surface area Derived from formula 2.35 m2 Eugene Wills Naderer Work Phone: formerly [facility] 600 DO Work Phone: 09-12-2022 10:11-0400 Body weight 116.58 kg Eugene Wills Naderer Work Phone: [facility] 600 DO Work Phone: 09-12-2022 10:11-0400 Diastolic blood pressure 88 mm[Hg] Eugene Wills Naderer Work Phone: [facility] 600 DO Work Phone: 09-12-2022 10:11-0400 Heart rate 52 /min Eugene Wills Naderer Work Phone: [facility] 600 DO Work Phone: 09-12-2022 10:11-0400 Systolic blood pressure 138 mm[Hg] Eugene Wills Naderer Work Phone: formerly [facility] 600 DO Work Phone: 03-05-2022 11:12-0500 Body height 180.34 cm Eugene Wills Naderer Work Phone: [facility] 600 DO Work Phone: 03-05-2022 11:12-0500 Body mass index (BMI) [Ratio] 36 kg/m2 Eugene Wills Naderer Work Phone: formerly [facility] 600 DO Work Phone: 03-05-2022 11:12-0500 Body surface area Derived from formula 2.35 m2 Eugene Wills Naderer Work Phone: [facility] 600 DO Work Phone: 03-05-2022 11:12-0500 Body weight 117.09 kg Eugene Wills Naderer Work Phone: formerly [facility] 600 DO Work Phone: 03-05-2022 11:12-0500 Diastolic blood pressure 80 mm[Hg] Eugene A Naderer Work Phone: formerly [facility] 600 DO Work Phone: 03-05-2022 11:12-0500 Heart rate 52 /min Eugene A Naderer Work Phone: formerly [facility] 600 DO Work Phone: 03-05-2022 11:12-0500 Systolic blood pressure 120 mm[Hg] Eugene A Naderer Work Phone: formerly [facility] 600 DO Work Phone: 10-16-2021 11:02-0400 Body height 180.34 cm Eugene A Naderer Work Phone: formerly [facility] [employer] 600 DO Work Phone: 10-16-2021 11:02-0400 Body mass index (BMI) [Ratio] 35.57 kg/m2 Eugene A Naderer Work Phone: formerly [facility] [employer] 600 DO Work Phone: 10-16-2021 11:02-0400 Body surface area Derived from formula 2.34 m2 Eugene A Naderer Work Phone: formerly [facility] 600 DO Work Phone: 10-16-2021 11:02-0400 Body weight 115.67 kg Eugene A Naderer Work Phone: formerly [facility] [employer] 600 DO Work Phone: 10-16-2021 11:02-0400 Diastolic blood pressure 70 mm[Hg] Eugene A Naderer Work Phone: formerly [facility] [employer] 600 DO Work Phone: 10-16-2021 11:02-0400 Heart rate 60 /min Eugene Mariscal Work Phone: [facility] 600 DO Work Phone: 10-16-2021 11:02-0400 Systolic blood pressure 128 mm[Hg] Eugene Mariscal Work Phone: formerly [facility] 600 DO Work Phone: 01-12-2021 10:31-0400 Body height 180.34 cm Referring Provider Unknown formerly [facility] 600 DO Work Phone: 01-12-2021 10:31-0400 Body mass index (BMI) [Ratio] 36.12 kg/m2 Referring Provider Unknown formerly [facility] 600 DO Work Phone: 01-12-2021 10:31-0400 Body surface area Derived from formula 2.35 m2 Referring Provider Unknown formerly [facility] 600 DO Work Phone: 01-12-2021 10:31-0400 Body weight 117.48 kg Referring Provider Unknown formerly [facility] 600 DO Work Phone: 01-12-2021 10:31-0400 Diastolic blood pressure 88 mm[Hg] Referring Provider Unknown formerly [facility] 600 DO Work Phone: 01-12-2021 10:31-0400 Heart rate 58 /min Referring Provider Unknown formerly [facility] 600 DO Work Phone: 01-12-2021 10:31-0400 Systolic blood pressure 138 mm[Hg] Referring Provider Unknown formerly [facility] 600 DO Work Phone: Encounters Encounter Date Encounter Type Care Provider Facility Start: 07-07-2023 End: 07-07-2023 ambulatory EUGENE MARISCAL Not Available Start: 05-13-2023 Telephone encounter Maryuri Macias RN [facility] Comment on above: overdue INR (1st att empt) Start: 05-03-2023 Refill Bertha Call jose alfredo MUÑOZN-NORIS Work Phone: [facility] - Casimiro Perales Start: 04-07-2023 End: 04-07-2023 ambulatory EUGENE MARISCAL Not Available Start: 03-28-2023 End: 03-28-2023 ambulatory MATTHEW HOOD [facility] Start: 03-28-2023 End: 03-28-2023 Office outpatient visit 25 minutes Matthew Hood MD Work Phone: [facility] Comment on above: S/P AVR (aortic valv e replacement) (Primary Dx); Aneurysm of ascending aorta without rupture ([facility]); Paroxysmal atrial fibrillation ([facility]); Anticoagulant long-term use Start: 03-27-2023 Telephone encounter Anna Colon CMA [facility] Start: 03-18-2023 Follow-up encounter Kay pinedo Work Phone: [facility] Medication Therapy Management Comment on above: S/P AVR (aortic valv e replacement) (Primary Dx); Atrial fibrillation Start: 03-13-2023 End: 03-13-2023 ambulatory FREDDY RASHIDVINAYAKBeena Not Available Start: 09-12-2022 End: 06-20-2023 Pre-admission assessment Phillip Ford [facility] Start: 09-12-2022 Office outpatient vi sit 25 minutes [facility]cal [facility] Work Phone: Start: 09-12-[address] Phillip Ford Facility: Start: 07-10-2022 Telephone encounter [facility]dero [facility] Work Phone: Start: 06-12-2022 Rx Renewal Eugene Mariscal [facility] Work Phone: Start: 06-11-2022 End: 06-12-[address] EUGENE MARISCAL Facility:[facility]1 Start: 04-15-[address] Phillip Ford Facility: Start: 03-19-2022 End: 03-20-2022 ambulatory SHAIKH Imelda MATHURREBEKA Facility:[facility]1 Start: 03-06-2022 EVENT MICHAEL, Provider : MIKAELA [id number] TRAPPER ANIMAL 1,[id number], Status: Pen, Time: 3:00 PM Eugene Mariscal Work Phone: [facility] 600 DO Work Phone: Start: 03-06-2022 Patient encounter procedure Eugene Mariscal Work Phone: [facility] 600 DO Work Phone: Start: 03-06-[address] Phillip Ford Facility: Start: 03-05-2022 Office outpatient vi sit 25 minutes Eugene Robertsonr Work Phone: [facility] 600 DO Work Phone: Start: 03-05-[address] Eugene Mariscal Facility: Start: 02-18-2022 Rx Renewal Eugene Mariscal Work Phone: [facility] 250 DO Work Phone: Start: 11-19-2021 End: 11-20-[address] EUGENE MARISCAL Facility:H1 Start: 10-17-2021 End: 10-18-[address] PHILLIP FORD Facility:H1 Start: 10-16-2021 Office outpatient vi sit 25 minutes Eugene Mariscal Work Phone: [facility] 600 DO Work Phone: Start: 10-16-[address] Phillip Ford Facility: Start: 08-15-2021 End: 08-16-[address] AILYN DEL VALLE . Facility:H1 Start: 07-31-2021 End: 07-31-[address] AILYN DEL VALLE . Facility:[facility]1 Start: 07-13-2021 End: 07-14-[address] DOCTOR SIEGEL Facility:H1 Start: 07-12-2021 End: 07-13-[address] AILYN DEL VALLE . Facility:H1 Start: 06-20-2021 Rx Renewal Referring Prov ider Unknown formerly [facility] 250 DO Work Phone: Start: 01-22-2021 Chart Update Referring Prov ider Unknown formerly [facility] [address] [place] Work Phone: Start: 01-12-2021 Chart Update Referring Prov ider Unknown formerly [facility] 600 DO Work Phone: Start: 01-12-2021 Office outpatient vi sit 25 minutes Referring Provider Unknown formerly [facility] 600 DO Work Phone: Procedures Date Procedure Procedure Detail Performing Clinician Start: 03-28-2023 Follow-up visit Follow-up MATTHEW HOOD Start: 02-28-2023 Adult depression scr eening assessment Anna Colon FAMILY SERVICES WORKER Start: 06-11-2022 PSA screening SHAIKH KEVAN STALEY Comment on above: Performed By: #### P [facility] ####[place] [address] [place] [id number] Payne Start: 04-24-2019 Total colonoscopy Refer ring Provider Unknown Start: 04-09-2019 Colonoscopy Anna houston [facility] Cardiac catheterization Refe rring Provider Unknown Hernia repair Referring Prov ider Unknown Plan of Treatment Date Care Activity Detail Author Start: 06-15-2032 DTaP,Tdap and Td Vaccines (2 - Td or Tdap) DTaP,Tdap and Td Vaccines (2 - Td or Tdap) [facility] Start: 04-09-2029 Screening for malignant neoplasm of colon Colonoscopy [facility] Start: 03-28-2024 Adult BMI Screening Adult BMI Screening [facility] Start: 03-28-2024 Tobacco Screening Tobacco Screening [facility] Start: 03-11-2024 Adult BMI Screening Adult BMI Screening [facility] Start: 02-29-2024 Depression Screening Depression Screening [facility] Start: 02-29-2024 Tobacco Screening Tobacco Screening [facility] Start: 06-24-2023 FUV, Provider: Phillip Ford, Status: Pen, Time: 9:10 AM FUV, Provider: Phillip Ford, Status: Abundio, Time: 9:10 AM formerly [facility] 600 DO Work Phone: Start: 04-15-2023 End: 04-15-2023 Patient encounter procedure 04/15/2023 2:00 PM EST Appointment [facility] - Cardiovascular [address] [place] [address] Matthew Hood MD [address] [place], [place] [id number] [facility] - Cardiovascular Start: 03-28-2023 End: 03-28-2024 Echo complete W/O contrast Echo complete W/O contrast Echocardiography Routine Aneurysm of ascending aorta without rupture ([facility]) S/P AVR (aortic valve replacement) Expected: 03/28/2023, Expires: 03/28/2024 [facility] Work Phone: Comment on above: Expected: 03/28/2023, Expires: Start: 03-28-2023 End: 03-28-2023 Patient encounter procedure 03/28/2023 8:45 AM EST Office Visit [facility] [address] [place] [id number] Matthew Hood MD [address] [place] [address] [facility] Start: 11-22-2022 Influenza vaccination Influenza Vaccine [facility] Start: 09-19-2022 FUV, Provider: Phillip Ford, Status: Pen, Time: 9:40 AM FUV, Provider: Phillip Ford, Status: Pen, Time: 9:40 AM [facility] 600 DO Work Phone: Start: 09-12-2022 FUV, Provider: Phillip Ford, Status: Pen, Time: 9:40 AM FUV, Provider: Phillip Ford, Status: Pen, Time: 9:40 AM [facility] 250 DO Work Phone: Start: 06-26-2022 FUV, Provider: Phillip Ford, Status: Pen, Time: 9:40 AM FUV, Provider: Phillip Ford, Status: Pen, Time: 9:40 AM [facility] 600 DO Work Phone: Start: 10-16-2021 FUV, Provider: Phillip Ford, Status: Pen, Time: 10:30 AM FUV, Provider: Phillip Ford, Status: Pen, Time: 10:30 AM [facility] 600 DO Work Phone: Start: 10-16-2021 FUV, Provider: Phillip Ford, Status: Pen, Time: 10:10 AM FUV, Provider: Phillip Ford, Status: Pen, Time: 10:10 AM [facility] 600 DO Work Phone: Start: 1978 Adult BMI Follow Up Plan Adult BMI Follow Up Plan [facility] Start: 1978 Diabetic foot examination Diabetic Foot Exam [facility] Start: 1960 Glaucoma screening Diabetic Ophthalmology Exam [facility] Start: 1960 Urine screening for protein Urine Microalbumin [facility] End: 09-26-2023 Ambulatory referral to Cardiac Rehabilitation ([facility]) Ambulatory referral to Cardiac Rehabilitation ([facility]) Card Rehab Routine Aneurysm of ascending aorta without rupture ([facility]) S/P AVR (aortic valve replacement) Per Treatment Plan for 36 Occurrences starting 03/28/2023 until 09/26/2023 [facility] Comment on above: Per Treatment Plan for [address] [facility] 03/28/2023 until 09/26/2023 Immunizations Immunization Date Immunization Notes Care Provider Kevan chowdary 09-08-2022 zoster vaccine recombinant Eugene A Naderer Work Phone: [facility] 600 DO Work Phone: 06-15-2022 tetanus toxoid, redu heidi diphtheria toxoid, and acellular pertussis vaccine, adsorbed Eugene A Naderer Work Phone: [facility] 600 DO Work Phone: 06-15-2022 zoster vaccine recombinant Eugene A Naderer Work Phone: [facility] 600 DO Work Phone: 02-19-2020 influenza, injectabl e, quadrivalent, preservative free Referring Provider Unknown [facility] 600 DO Work Phone: 02-19-2020 influenza virus vaccine, unspecified formulation Anna Colon [facility] 12-31-2019 influenza, seasonal, injectable Referring Provider Unknown [facility] 600 DO Work Phone: 12-22-2018 influenza, seasonal, injectable Referring Provider Unknown [facility] 600 DO Work Phone: 01-11-2018 influenza, injectabl e, quadrivalent, preservative free Referring Provider Unknown [facility] 600 DO Work Phone: 01-28-2016 influenza, injectabl e, quadrivalent, preservative free Referring Provider Unknown [facility] 600 DO Work Phone: Payers Date Payer Category Payer Medicare [id number] 2021 Medicaid [id number] 2021 Medicare [id number] 1960 Unknown [id number] 2.16.84 0.1.568960.3.579.2.593 1960 Unknown [id number] 2.16.84 0.1.516074.3.579.2.593 1960 Unknown [id number] 2.16.84 0.1.057477.3.579.2.593 1960 Unknown [id number] 2.16.84 0.1.114697.3.579.2.593 1960 Unknown [id number] 2.16.84 0.1.958523.3.579.2.593 1960 Unknown [id number] 2.16.84 0.1.807031.3.579.2.593 1960 Unknown [id number] 2.16.84 0.1.441915.3.579.2.593 1960 Unknown [id number] 2.16.84 0.1.778756.3.579.2.593 1960 Unknown [id number] 2.16. 840.1.526715.3.579.2.356 1960 Unknown [id number] 2.16. 840.1.056151.3.579.2.356 1960 Unknown [id number] 2.16. 840.1.849074.3.579.2.356 1960 Unknown [id number] 2.16. 840.1.211684.3.579.2.356 1960 Unknown [id number] 2.16. 840.1.418223.3.579.2.356 1960 Unknown [id number] 2.16.84 0.1.892335.3.579.2.1286 1960 Unknown [id number] 2.16.84 0.1.453810.3.579.2.1259 1960 Unknown [id number] 2.16.84 0.1.380528.3.579.2.1259 1960 Unknown [id number] 2.16.840 .1.395395.3.579.2.1259 1959 Medicare [id number] 1959 Unknown [id number] Medicaid [id number] Unknown Social History Date Type Detail Facility Start: 05-04-2020 End: 02-28-2023 Caffeine use Caffeine use [facility] [employer] DO Work Phone: Comment on above: decaf coffee, caffei ne free soda; Start: 10-26-2019 End: 10-25-2022 Tobacco smoking status NHIS Never smoked tobacco [facility] Start: 10-25-2022 Tobacco use and exposure Forme r smokeless tobacco user [facility] End: 02-15-2018 History of tobacco use Chews Tobacco [facility] Start: 03-03-2023 End: 03-28-2023 Alcohol intake Ex-drinker (finding) [facility] Start: 05-04-2020 End: 02-28-2023 Alcohol Use Disorder Identification Test - Consumption [AUDIT-C] [facility] How often to you hav e a drink containing alcohol? Never [facility] How many standard dr inks containing alcohol do you have on a typical day? Patient does not drink [facility] Start: 1960 Sex Assigned At Not on file P [facility] Medical Equipment Procedure Code Equipment Code Equipment Origin al Text Equipment Identifier Dates Valve Aor 11cm 2 6mm 36mm 23.4mm Onx Vascutek Glwv Vslv [facility] - [id number] - [id number] Start: 02-27-2023 USE 1 STRIP TO C HECK GLUCOSE ONCE DAILY [id number] Start: 12-08-2019 Goals Date Patient Goal Desired [...] pt, however NA/NM.hrs documented in this encounter [facility] 05-13-2023 Telephone encounter Note Pt on overdue INR list; attempted to call pt, however NA/NM.hrs [facility] 03-28-2023 History of Presen t illness Narrative Roxann Johnson Date of visit: 03/28/2023 Date of : 1960 Age: 62 y.o. Patient Active Problem List Diagnosis Aneurysm of ascending aorta without rupture ([facility]) Nonrheumatic aortic valve insufficiency Atrial fibrillation Chest pain Shortness of breath Anticoagulant long-term use At low risk for fall Benign essential hypertension Gastroesophageal reflux disease Gout Obesity with body mass index (BMI) of 30.0 to 39.9 Osteoarthritis Sleep apnea Umbilical hernia without obstruction or gangrene Vitamin D deficiency S/P AVR (aortic valve replacement) Paroxysmal atrial fibrillation ([facility]) No Known Allergies Current Outpatient Medications Medication [...] CLAMP/SIL SCHED W/PT History of Present Illness Roxann is here for follow-up. He is doing [...] breath. Past Medical History: Diagnosis Date Aneurysm ([facility]) Aortic aneurysm ([facility]) Cardiovascular disease Diabetes mellitus ([facility]) Gout Hyperlipidemia Hypertension No data recorded No data recorded No data recorded Past Surgical History: Procedure Laterality Date . N/A 12/09/2022 Performed by Fredi Lechuga MD at [facility] CARDIAC CATH LABS ASCENDING AORTIC ANEURYSM REPAIR WITH REPLACEMENT OF AORTIC ROOT AND AORTIC VALVE REPLACEMENT -MODIFIED BENTALL PROCEDURE USING ON-X ASCENDING AORTIC PROSTHESIS/LIGATION OF ATRIAL APPENDAGE WITH 45MM PENDITURE CLAMP/SIL N/A 02/27/2023 Performed by David Black MD at [facility] CARDIAC CATHETERIZATION Cardiac catheterization- CORS+RIGHT HEART+LV GRAM/PRESS ([id number]) with root injection N/A 12/09/2022 Performed by Fredi Lechuga MD at [facility] CARDIAC CATH LABS COLONOSCOPY Inject aortic root complete N/A 12/09/2022 Performed by Fredi Lechuga MD at [facility] CARDIAC CATH LABS Right heart cath N/A 12/09/2022 Performed by Fredi Lechuga MD at [facility] CARDIAC CATH LABS Family History Problem [...] amiodarone. I would place him on a beta-catracho as his pressure is slightly on the high side and use carvedilol moving forward. We are going to start that today. 2. Routine echo as he underwent valve surgery 3. Cardiac rehab but she wants to do through [place] 4. Ensure he is set up for [...] event and it may be worth screening Roxann regardless. TODAYS ORDERS Orders Placed This Encounter Procedures Ambulatory referral to Cardiac Rehabilitation ([facility]) Echo complete W/O contrast FOLLOW UP Return in about 3 months (around 06/27/2023). PCP: EUGENE MARISCAL MD Referring Physician: Eugene Mariscal MD [address] [place] [address] Faxed referral for cardiac rehab to [facility] per pt request at [phone] Lmom for [facility] MTM regarding referral documented in this encounter [facility] 03-27-2023 Miscellaneous Notes Called patient to remind them to bring their most current copy of their medication list with them to their appt. Patient verbalizes understanding. documented in this encounter [facility] 03-27-2023 Telephone encounter Note Called patient to remind them to bring their most current copy of their medication list with them to their appt. Patient verbalizes understanding. [facility] [employer] [facility] 03-18-2023 History of Presen t illness Narrative Kate au/ Saman Campoverde [facility]. INR today: 2.3 PT today: 28.1 Contact pt w/ dosing instructions. Patient appeared on the 30 day OD INR report. Appears the patient was seen. See notes below. Noted. INR noted below was from >7 days ago thus no warfarin dose can be provided. Instructional Services Specialist reached out to Ray who confirms patient was discharged from services on 03/25/23. Instructional Services Specialist spoke to patient who confirms he remains on warfarin therapy and was under the impression his PCP was taking over his care so he can go to [facility] in [place] for INR checks. He has not had his INR checked recently, though. Explained to patient that INR recheck is needed and this can be completed at [facility] POC with our team or through his PCP if he prefers. Patient to reach out to PCP office on Friday04/14/23 when they re-open to confirm. If PCP unable to monitor, patient agreeable to [facility] appt next week. - Luann Rodgers [facility] 04/11/23 2:58 PM Luann Rodgers, [facility] 04/11/23 1459 documented in this encounter [employer] 03-06-2022 Note Reason For Visit Indication palpitation and atrial fibrillation Procedure: Patient underwent 30-day event monitor. Baseline rhythm is sinus/sinus pericardia. During the monitoring period 2 PVCs were seen. No symptoms were reported. Conclusion 1. Normal sinus rhythm 2. Rare PVCs 3. No significant tacky or bradycardia arrhythmia 4. No symptoms entered by the patient Event Monitor: ROXANN is here for the application of a 30 day event monitor in office., Diagnosis: palps/ paf Ordering Physician: Dr. Phillip Ford MD Enrollment sent to: [employer] Monitor number [id number] applied. Holter monitor printed and placed on Dr. Phillip Ford MD desk to dictate. Diagnosis/Problems Assessed Palpitations (785.1) (R00.2) Paroxysmal atrial fibrillation (427.31) (I48.0) Future Appointments Date/TimeProviderSpecialtySite 09/19/2022 09:40 Phillip Méndez [id number] [facility] [address] DO Signatures Electronically signed by : Phillip Ford MD; Apr 15 2022 5:34PM EST (Author) [employer] 10-16-2021 History of Presen t illness Narrative [...] profile6. Follow-up in 9 months with EKG [facility] 600 DO Work Phone: 08-15-2021 [...] plan of care and all questions answered. [facility] Signed and Approved by: KATE TIM . 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 Sleeping [...] review cervical x-rays with him as wel [facility] Signed and Approved by: KATE TIM . 07/18/2021 16:14:00 [facility] Evaluation + Plan note No data available for this section [facility] Evaluation note Diagnosis S/P AVR (aortic valve replacement)- Primary Heart valve replaced by other means Aneurysm of ascending aorta without rupture ([facility]) Paroxysmal atrial fibrillation ([facility]) Atrial fibrillation Anticoagulant long-term use Encounter for long-term (current) use of 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 documented in this encounter [facility]* Diagnosis S/P AVR (aortic valve replacement)- Primary Heart valve replaced by other means Atrial fibrillation documented in this encounter [facility] of Present illness Narrative* Patient is here [...] him to monitor his blood pressure closely -[facility] 600 DO Work Phone: History of Present [...] him to monitor his blood pressure closely [facility] 600 DO Work Phone: Hospital Discharge instructions No data available for this section [facility]ructionsNot on filedocumented in this encounter [facility]ructionsNot on filedocumented in this encounter [facility] SystemInstructionsNot on filedocumented in this encounter [facility]Not on filedocumented in this encounter [facility] System[facility]ructionsNot on filedocumented in this encounter [facility] No data available for this section [facility] for [facility] (narrative)* Consultation (Routine) - Pending Review Specialty Diagnoses / Procedures Referred By Misael t Referred To Contact Cardiac Rehabilitation Diagnoses Aneurysm of ascending aorta without rupture ([facility]) S/P AVR (aortic valve replacement) Procedures Ambulatory referral to Cardiac Rehabilitation (Non[facility]) Matthew Hood MD [address] [address] Referral ID Status Reason Start Date Expiration Date V isits Requested Visits Authorized [id number] Pending Review 03/28/2023 03/27/2024 36 36 * Cardiology (Routine) - Pending Review Specialty Diagnoses / Procedures Referred By Contac t Referred To Contact Diagnoses Aneurysm of ascending aorta without rupture ([facility]) S/P AVR (aortic valve replacement) Procedures Echo complete W/O contrast Matthew Hood MD [address] [place] [address] Referral ID Status Reason Start Date Expiration Date V isits Requested Visits Authorized [id number] Pending Review 03/28/2023 03/27/[address] [facility] Summary Purpose Family History No Family [...] 12:12 PM 03/04/2023 5:06 PM Chief Complaint ROXANN JOHNSON is being seen for a 9 month follow-up of.ROXANN JOHNSON is being seen for a 9 month follow-up of.ROXANN JOHNSON is being seen for a 6 month follow-up of. Additional Source Comments (unrecognized sect ion and content) No Status Records FoundNo Status Records FoundNo Status Records FoundNo Status Records FoundNo Status Records FoundNo Status Records FoundNo Status Records FoundNo Status Records Found INFORMATION SOURCE (unrecogn ized section and content) DATE CREATED AUTHOR 08/07/[address] [facility] DATE CREATED AUTHOR AUTHOR'S ORGANIZ ATION 06/16/2022 [facility] DATE CREATED AUTHOR AUTHOR'S ORGANIZ ATION 09/13/2022 [facility] DATE CREATED AUTHOR AUTHOR'S ORGANIZ ATION 09/13/2022 [employer] DATE CREATED AUTHOR AUTHOR'S ORGANIZ ATION 03/10/2023 [facility] DATE CREATED AUTHOR AUTHOR'S ORGANIZ ATION 03/30/2023 [facility] DATE CREATED AUTHOR AUTHOR'S ORGANIZ ATION 06/19/2023 [facility] DATE CREATED AUTHOR AUTHOR'S ORGANIZ ATION 07/07/2023 [facility] EPIC Reason for Visit (unrecogniz ed [...] Care Teams (unrecognized sec tion and content) Chemical Engineering Technologist Relationship Specialty Start Date End Date Eugene Mariscal MD [address] [place] [address] PCP - General Family Medicine 08/16/20 Chemical Engineering Technologist Relationship Specialty Start Date End Date Eugene Mariscal MD [address] [place] [address] PCP - General Family Medicine 08/16/20 Chemical Engineering Technologist Relationship Specialty Start Date End Date Eugene Mariscal MD [address] [place] [address] PCP - General Family Medicine 08/16/20 Chemical Engineering Technologist Relationship Specialty Start Date End Date Eugene Mariscal MD [address] [place] [address] PCP - General Family Medicine 08/16/20 FOR [...] BE BASED ON THE PRIMARY CLINICAL RECORDS. [employer] (acquired by [employer] in 2014) [facility]. provides no warranty or guarantee of the accuracy or completeness of information in this document.
[2023-11-16] MEDS: OXYCODONE HCL/ACETAMINOPHEN 5MG/325MG 1 TAB PO (05:48)
[2023-11-16] MEDS: TRIAMCINOLONE ACETONIDE 40 MG/ML VIAL IM (05:48)
--- NOTE | 2023-11-16 05:52 | ED_ITS ---
HPI HPI - General Adult General Chief complaint: Extremity Problem, Nontraumatic Stated complaint: le pain Time Seen by Provider: 11/16/23 05:10 Source: patient Mode of arrival: walk-in Limitations: no limitations History of Present Illness HPI narrative: 62-year-old male to the emergency department chief complaint of pain in his left knee. Patient reports he has a history of gout and this is typical presentation for him he denies any fever, sweats, chills. He denies any injury. He reports warmth and swelling without any erythema. He typically takes prednisone during flares. Has been on allopurinol for prevention. Related Data Home Medications ?Medication ?Instructions ?Recorded ?Confirmed allopurinol 100 mg tablet 100 mg PO DAILY 11/16/23 11/16/23 atenolol 100 mg tablet 100 mg PO Q24H 11/16/23 11/16/23 atorvastatin 10 mg tablet 10 mg PO DAILY 11/16/23 11/16/23 carvedilol 6.25 mg tablet 6.25 mg PO Q12H 11/16/23 11/16/23 cholecalciferol (vitamin D3) 50 50 mcg PO DAILY 11/16/23 11/16/23 mcg (2,000 unit) tablet glipizide 10 mg tablet 5 mg PO DAILY 11/16/23 11/16/23 lisinopril 20 mg tablet mg 11/16/23 lisinopril 40 mg tablet 40 mg PO DAILY 11/16/23 11/16/23 metformin 500 mg tablet,extended 500 mg PO DAILY 11/16/23 11/16/23 release 24 hr Previous Rx's ?Medication ?Instructions ?Recorded oxycodone-acetaminophen 5 mg-325 1 tab PO Q6H PRN pain 3 days #12 11/16/23 mg tablet (Percocet) tabs Allergies Allergy/AdvReac Type Severity Reaction Status Date / Time No Known Drug Allergies Allergy Verified 11/16/23 05:16 Opioid HPI Opioid Management Most Recent Opioid Data: Last Pain Scale 10 11/16/23 05:48 Last ED Pain Assessment 11/16/23 05:23 Last MAR Pain Assessment 11/16/23 05:48 Review of Systems ROS Status of ROS 10 or more systems reviewed and unremark able except as noted in h istory and below Exam Narrative Exam Narrative: VITALS: I have reviewed the triage vital signs. GENERAL: Well developed, well appearing adult in no acute distress. NEURO: Alert and oriented. Moves all extremities. Face is symmetric and expressive. EYES: PERRL. No scleral icterus or conjunctival injection. No discharge. HENT: Normocephalic, atraumatic. Hearing is grossly intact. Nares grossly patent and without discharge. Mucous membranes moist. NECK: No JVD. Patient moves neck without restriction. Left lower extremity: DP and PT pulse intact. Sensation intact over the lower leg. Limb is similar color and temperature the contralateral extremity. Minimal tenderness to palpation of the left knee. No appreciable effusion. Mild warmth compared to the contralateral knee. No erythema. Pain with range of motion of the left knee. SKIN: Warm and dry. Normal turgor. No rash or lesions appreciated. PSYCH: Mood, affect, and interaction is appropriate to the setting. Constitutional Vital Signs, click to edit/add: Last Vital Signs Temp 97.9 F 11/16/23 05:11 Pulse 80 11/16/23 05:11 Resp 16 11/16/23 05:11 BP 139/92 H 11/16/23 05:11 Pulse Ox 96 11/16/23 05:11 O2 Del Method Room Air 11/16/23 05:11 Course Vital Signs Vital signs: Vital Signs Temperature 97.9 F 11/16/23 05:11 Pulse Rate 80 11/16/23 05:11 Respiratory Rate 16 11/16/23 05:11 Blood Pressure 139/92 H 11/16/23 05:11 Pulse Oximetry 96 11/16/23 05:11 Oxygen Delivery Method Room Air 11/16/23 05:11 Temperature 97.9 F 11/16/23 05:11 Pulse Rate 80 11/16/23 05:11 Respiratory Rate 16 11/16/23 05:11 Blood Pressure 139/92 H 11/16/23 05:11 Pulse Oximetry 96 11/16/23 05:11 Oxygen Delivery Method Room Air 11/16/23 05:11 Medical Decision Making MDM Narrative Medical decision making narrative: 62-year-old male to the emergency department chief complaint of pain in his left knee consistent with past gout flares. Vital stable, the patient is afebrile. The patient's history and exam I agree likely gout flare. No evidence of septic arthritis. Discussed with patient how he is typically manage. He reports good relief with steroid shot in the past. Percocet and Kenalog injection given in the ER. Short prescription of Percocet for home. Return precautions were discussed. All questions were answered. He will follow-up with his primary care doctor as scheduled on Friday. Patient was discharged home. Medical Records Medical records reviewed: Yes I reviewed the patient's medical records Discharge Plan Discharge Stand Alone Forms: Work/School Release, Portal Instructions Chief Complaint: Extremity Problem, Nontraumatic Clinical Impression: Gout attack Patient Disposition: Home, Self-Care Time of Disposition Decision: 05:35 Condition: Good Mode of Transportation: Private Vehicle Prescriptions / Home Meds: New oxycodone-acetaminophen [Percocet] 5-325 mg tablet 1 tab PO Q6H PRN (Reason: pain) 3 Days Qty: 12 0RF No Action allopurinol 100 mg tablet 100 mg PO DAILY atenolol 100 mg tablet 100 mg PO Q24H atorvastatin 10 mg tablet 10 mg PO DAILY carvedilol 6.25 mg tablet 6.25 mg PO Q12H cholecalciferol (vitamin D3) 50 mcg (2,000 unit) tablet 50 mcg PO DAILY glipizide 10 mg tablet 5 mg PO DAILY lisinopril 20 mg tablet lisinopril 40 mg tablet 40 mg PO DAILY metformin 500 mg tablet extended release 24 hr 500 mg PO DAILY Print Language: [place] Instructions: Gout (ED) Additional Instructions: Call the office of your primary care doctor to arrange for follow-up within the above-stated timeframe. Your ED visit was focused on your acute issue and does not replace primary care. You should review your labs, imaging, and diagnoses from this ED visit with your primary care physician. There may be non-emergent/ incidental findings that need further evaluation. You should review your vital signs including blood pressure with your PCP. If you were prescribed medications you should discuss possible side-effects and drug interactions with your pharmacist. Call 911 or go to the nearest Emergency Department if you develop any new or worsening symptoms. Return with worsening pain, fever, redness, swelling. Keep your appointment with your primary care doctor. Referrals: Eugene Hair MD [Primary Care Provider] - 1 week
== END 2023-11-16 05:58 | disposition home or self-care (01) ==
PROVIDERS: Emergency Provider Student in an Organized Health Care Education/Training Program; PCP Family Medicine
DX: M10.9 Gout, unspecified (principal); Z79.899 Other long term (current) drug therapy
CPT/HCPCS: 96372; 99284; J3301

== ENCOUNTER 2023-11-20 08:50 | Outpatient (OUT) | payer OTHER, SELFPAY ==
--- OUTSIDE RECORDS SUMMARY | 2023-11-20 09:12 | XMS_ITS | CCD ---
Author Organization [facility] Care Team Providers Care Economics Lecturer Name Role Phone Unknown, Referring Provider Unavailable [...] NADERER, DR EUGENE Wills Primary Care Unavailable BIRD IN HAND, DR ADRI Hernandez Consulting Unavailable GLENROY .KATE [...] ble Naderer Eugene MENDES Primary Care Provider [phone] MATTHEW HOOD Attending EUGENE Norman Referring EUGENE Norman Primary Care Unavailable EUGENE MARISCAL Primary Care Physician [phone] EUGENE MARISCAL Attending Unavailable EUGENE MARISCAL Attending [...] medications] Episodic Other aftercare (1 source) Other correction (current) drug therapy; Translations: [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] Onset: 06-15-2022 Episodic Other aftercare (6 sources) Long-term current use of anticoagulant; 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 SURGEON: David Black MD. MEDICAL OFFICE ASST: FIDE Cueva ATTENDING ANESTHESIOLOGIST: ATTENDING PRIMARY CARE [...] carefully de-air (more content not included)... Normal [facility] Office Visit (Cardiology)on 09-12-2022 Follow-up visit [...] Metabolic Panel; Status:Active - Retrospective Authorization; Requested for:[id number]; SocHx: Never a smoker Tobacco Use Screening; Status:Complete; Done: [id number] Patient Instructions Please bring all medicines, vitamins, [...] Signs Recorded: 12Sep2022 10:11AM Heart Rate52, Apical Wsqrgezr327, LUE, Sitting Ljqhuqghp03, LUE, Sitting Height5 ft 11 in Haiogq779 lb BMI Pgfyazowiz74.84 kg/m2 BSA Calculated2.35 Tobacco Useb) No PHQ-2 #1. Over the last 2 weeks have you felt down, depressed or hopeless? (If yes, answer PHQ-9 below)No PHQ-2 #2. Over the last 2 weeks have you felt little interest or pleasure in (more content not included)... Normal [facility] Physician Orderon 09-12-2022 Physician Order [id number]. [id number] Normal [facility] Tobacco Screening.on 023 Adult depression screening assessment No [facility] [employer] DO Work Phone: Fall risk assessment a) No falls within the last year [facility] [employer] 600 DO Work Phone: Tobacco use status CPHS b) No [facility] [employer] 600 DO Work Phone: CBC AUTO DIFFon 03-21-2023 BASO # 0.1 103/ul Normal 0.0-0.1 [facility] Comment on above: Performed By: #### C BC #### [facility] [address] [place] [address] Dr. Doug Payne Basophils/100 WBC (Bld) 1.2 % Normal 0.2-2.0 [facility] Comment on above: Performed By: #### C BC #### [facility] [address] [place] [address] Dr. Doug Payne EO # 0.4 103/ul Normal 0.0-0.7 [facility] Comment on above: Performed By: #### C BC #### [facility] [address] [place] [address] Dr. Doug Payne Eosinophils/100 WBC (Bld) 5.5 % Normal 0.9-7.0 [facility] Comment on above: Performed By: #### C BC #### [facility] [address] [place] [address] Dr. Doug Payne Erythrocyte distribution width (RBC) [Ratio] 13.4 % Normal 11.0-15.0 [facility] Comment on above: Performed By: #### C BC #### [facility] [address] [place] [address] Dr. Doug Payne Hematocrit (Bld) [Volume fraction] 42.2 % Normal 42.0-54.0 [facility] Comment on above: Performed By: #### C BC #### [facility] [address] [place] [address] Dr. Doug Payne Hemoglobin (Bld) [Mass/Vol] 14.4 g/dL Normal 14.0-18.0 [facility] Comment on above: Performed By: #### C BC #### [facility] [address] [place] [address] Dr. Doug Payne IG # 0.02 10e3/ul Normal 0.00-0.03 [facility] Comment on above: Performed By: #### C BC #### [facility] [address] [place] [address] Dr. Doug Payne IG % 0.3 % Normal 0.0-0.5 [facility] Comment on above: Performed By: #### C BC #### [facility] [address] [place] [address] Dr. Doug Payne LYMPH # 2.8 103/ul Normal 1.2-3.8 [facility] Comment on above: Performed By: #### C BC #### [facility] [address] [place] [address] Dr. Doug Payne Lymphocytes/100 WBC (Bld) 42.8 % Normal 20.5-60.0 [facility] Comment on above: Performed By: #### C BC #### [facility] [address] [place] [address] Dr. Doug Payne MANUAL DIFF REQ NO Normal [facility] Comment on above: Performed By: #### C BC #### [facility] [address] [place] [address] Dr. Doug Payne MCH (RBC) [Entitic mass] 30.2 pg Normal 25.9-34.0 [facility] Comment on above: Performed By: #### C BC #### [facility] [address] [place] [address] Dr. Doug Payne MCHC (RBC) [Mass/Vol] 34.1 g/dL Normal 29.9-35.2 [facility] Comment on above: Performed By: #### C BC #### [facility] [address] [place] [address] Dr. Doug Payne MCV (RBC) [Entitic vol] 88.5 fL Normal 80.0-94.0 [facility] Comment on above: Performed By: #### C BC #### [facility] [address] [place] [address] Dr. Doug Payne MONO # 0.7 103/ul Normal 0.3-0.8 [facility] Comment on above: Performed By: #### C BC #### [facility] [address] [place] [address] Dr. Doug Payne Monocytes/100 WBC (Bld) 10.8 % Normal 1.7-12.0 [facility] Comment on above: Performed By: #### C BC #### [facility] [address] [address] [address] Doug Payne NEUT # 2.6 103/ul Normal 1.4-6.5 [facility] Comment on above: Performed By: #### C BC #### [facility] [address] [address] [address] Doug Payne Neutrophils/100 WBC (Bld) 39.4 % Critically low 43.0-75.0 [facility] Comment on above: Performed By: #### C BC #### [facility] [address] [address] [address] Doug Payne Platelet mean volume (Bld) [Entitic vol] 9.0 fL Critically low 9.5-13.5 [facility] Comment on above: Performed By: #### C BC #### [facility] [address] [address] [address] Doug Payne PLT 207 103/ul Normal 150-450 [facility] Comment on above: Performed By: #### C BC #### [facility] [address] [address] [address] Doug Payne RBC 4.77 106/ul Normal 4.70-6.10 [facility] Comment on above: Performed By: #### C BC #### [facility] [address] [address] [address] Doug Payne WBC 6.5 103/ul Normal 4.0-11.0 [facility] Comment on above: Performed By: #### C BC #### [facility] [address] [address] [address] Doug Payne GLYCOHEMOGLOBIN A1Con 2022 ADA RECOMMENDATION SEE BELOW Normal [facility] Comment on above: Result Comment: ADA RECOMMENDED LIMIT 4.0 - 6.0 ADA THERAPEUTIC TARGET < 7.0 ACTION SUGGESTED > 7.0 Performed By: #### A 1C ####[facility] [address] [place] [address]Dr. Doug Payne Glucose [Mass/Vol] 160 mg/dL Normal [facility] Comment on above: Performed By: #### A 1C ####[facility] [address] [place], [place] [address]UxDr. Doug Payne HbA1c (Bld) [Mass fraction] 7.2 % Critically high 4.5-6.2 [facility] Comment on above: Performed By: #### A 1C ####[facility] [address] [place] [id number]. Doug Payne LIPID PROFILEon 06-11-2022 CHOL-HDL RATIO NORM SEE BELOW Normal [facility] Comment on above: Result Comment: 3.3 - 4.4 LOW RISK 4.4 - 7.1 AVERAGE RISK 7.1 - 11.0 MODERATE RISK >11.0 HIGH RISK Performed By: #### T SH, LIPID, LIVER, BMP #### [facility] [address] [address] [address] Doug Payen Cholesterol [Mass/Vol] 121 mg/dL Normal <=200 [facility] Comment on above: Performed By: #### T SH, LIPID, LIVER, BMP #### [facility] [address] [address] [address] Doug Payne Cholesterol in HDL [Mass/Vol] 29 mg/dL Critically low 40-60 [facility] Comment on above: Performed By: #### T SH, LIPID, LIVER, BMP #### [facility] [address] [address] [address] Doug Payne Cholesterol in LDL [Mass/Vol] 68.4 mg/dL Normal [facility] Comment on above: Performed By: #### T SH, LIPID, LIVER, BMP #### [facility] [address] [address] [address] Doug Payne Cholesterol.total/C holesterol in HDL [Mass ratio] 4.2 {ratio} Normal [facility] Comment on above: Performed By: #### T SH, LIPID, LIVER, BMP #### [facility] [address] [address] [address] Doug Payne HDL NORMAL > or = 60 mg/dl - LO W CARDIOVASCULAR RISK <40 mg/dl - HIGH CARDIOVASCULAR RISK Normal [facility] Comment on above: Performed By: #### T SH, LIPID, LIVER, BMP #### [facility] [address] [address] [address] Doug Payne LDL CALC NORMAL SEE BELOW Normal [facility] Comment on above: Result Comment: <100 mg/dl OPTIMAL 100 - 129 mg/dl NEAR OR ABOVE OPTIMAL 130 - 159 mg/dl BORDERLINE HIGH 160 - 189 mg/dl HIGH >190 mg/dl VERY HIGH Performed By: #### T SH, LIPID, LIVER, BMP #### [facility] [address] [address] [address] Doug Payne Triglyceride [Mass/Vol] 118 mg/dL Normal <=150 [facility] Comment on above: Performed By: #### T SH, LIPID, LIVER, BMP #### [facility] [address] [address] [address] Doug Payne VLDL CALC 23.6 mg/dL Normal [facility] Comment on above: Performed By: #### T SH, LIPID, LIVER, BMP #### [facility] [address] [address] [address] Doug Payne LIVER PROFILEon 06-11-2022 Albumin [Mass/Vol] 4.0 g/dL Normal 3.4-5.0 [facility] Comment on above: Performed By: #### T SH, LIPID, LIVER, BMP #### [facility] [address] [address] [address] Doug Payne Albumin/Globulin [Mass ratio] 1.3 {ratio} Normal [facility] Comment on above: Performed By: #### T SH, LIPID, LIVER, BMP #### [facility] [address] [address] [address] Doug Payne ALP [Catalytic activity/Vol] 65 U/L Normal 46-116 [facility] Comment on above: Performed By: #### T SH, LIPID, LIVER, BMP #### [facility] [address] [address] [address] Doug Payne ALT [Catalytic activity/Vol] 36 U/L Normal 16-63 [facility] Comment on above: Performed By: #### T SH, LIPID, LIVER, BMP #### [facility] [address] [address] [address] Doug Payne AST [Catalytic activity/Vol] 24 U/L Normal 15-37 [facility] Comment on above: Performed By: #### T SH, LIPID, LIVER, BMP #### [facility] [address] [address] [address] Doug Payne BILI, CONJUGATED 0.1 mg/dL Normal 0.0-0.2 [facility] Comment on above: Performed By: #### T SH, LIPID, LIVER, BMP #### [facility] [address] [address] [address] Doug Payne Bilirubin [Mass/Vol] 0.3 mg/dL Normal 0.2-1.0 [facility] Comment on above: Performed By: #### T SH, LIPID, LIVER, BMP #### [facility] [address] [place] [address] Dr. Doug Payne Globulin (S) [Mass/Vol] 3.2 g/dL Normal [facility] Comment on above: Performed By: #### T SH, LIPID, LIVER, BMP #### [facility] [address] [place] [address] Dr. Doug Payne Protein [Mass/Vol] 7.2 g/dL Normal 6.4-8.2 [facility] Comment on above: Performed By: #### T SH, LIPID, LIVER, BMP #### [facility] [address] [place] [address] Dr. Doug Payne MICROALBUMIN, RAND URon 03- mALB 1.5 mg/L Normal <=30.0 [facility] Comment on above: Performed By: #### M ALBR ####[facility] [address] [address]Dr. Doug Payne PROF CHEM 8 (BAS METB)on Anion gap [Moles/Vol] 14.1 mmol/L Normal [facility] Comment on above: Performed By: #### T SH, LIPID, LIVER, BMP #### [facility] [address] [address] [address] Doug Payne Calcium [Mass/Vol] 9.1 mg/dL Normal 8.5-10.1 [facility] Comment on above: Performed By: #### T SH, LIPID, LIVER, BMP #### [facility] [address] [address] [address] Doug Payne Chloride [Moles/Vol] 105 mmol/L Normal 98-107 [facility] Comment on above: Performed By: #### T SH, LIPID, LIVER, BMP #### [facility] [address] [address] [address] Doug Payne CO2 [Moles/Vol] 25.0 mmol/L Normal 21.0-32.0 [facility] Comment on above: Performed By: #### T SH, LIPID, LIVER, BMP #### [facility] [address] [place] [address] Dr. Doug Payne Creatinine [Mass/Vol] 1.16 mg/dL Normal 0.70-1.30 [facility] Comment on above: Performed By: #### T SH, LIPID, LIVER, BMP #### [facility] [address] [address] [address] Doug Payne EGFR-AF MONTSERRATIAN >60 Normal >=60 [facility] Comment on above: Performed By: #### T SH, LIPID, LIVER, BMP #### [facility] [address] [place] [address] Dr. Doug Payne EGFR-NON AF MONTSERRATIAN >60 Normal >=60 [facility] Comment on above: Performed By: #### T SH, LIPID, LIVER, BMP #### [facility] [address] [address] [address] Doug Payne Glucose [Mass/Vol] 143 mg/dL Critically high 74-106 [facility] Comment on above: Performed By: #### T SH, LIPID, LIVER, BMP #### [facility] [address] [address] [address] Doug Payne Potassium [Moles/Vol] 4.1 mmol/L Normal 3.5-5.1 [facility] Comment on above: Performed By: #### T SH, LIPID, LIVER, BMP #### [facility] [address] [address] [address] Doug Payne Sodium [Moles/Vol] 140 mmol/L Normal 136-145 [facility] Comment on above: Performed By: #### T SH, LIPID, LIVER, BMP #### [facility] [address] [address] [address] Doug Payne Urea nitrogen [Mass/Vol] 21.0 mg/dL Critically high 7.0-18.0 [facility] Comment on above: Performed By: #### T JERONIMO, LIPID, LIVER, BMP #### [facility] [address] [place] [address] Dr. Doug Payne Urea nitrogen/Creatinine [Mass ratio] 18.1 mg/mg Normal [facility] Comment on above: Performed By: #### T JERONIMO, LIPID, LIVER, BMP #### [facility] [address] [address] [address] Doug Payne TSHon 06-11-2022 TSH 2.075 uIU/mL Normal 0.358-3.740 [facility] Comment on above: Performed By: #### T JERONIMO, LIPID, LIVER, BMP #### [facility] [address] [place] [address] Dr. Doug Payne XR CHEST 2 Von [...] CECILIO OLVERA Date: 2022-03-19 17:32 Normal [facility] Office Visit (Cardiology)on 03-05-2022 Follow-up visit [...] Weight Tips; Status:Complete - Retrospective Authorization; Done: [id number] Some eating tips that can help you lose weight.; Status:Complete - Retrospective Authorization; Done: [id number] Essential hypertension, benign Renew: Lisinopril 40 MG Oral Tablet; TAKE 1 TABLET EVERY DAY Hyperlipemia Renew: Atorvastatin Calcium 10 MG Oral Tablet; take 1 tablet by mouth once daily Palpitations, Paroxysmal atrial fibrillation Renew: Atenolol 100 MG Oral Tablet; TAKE 1 TABLET DAILY IO EKG Electrocardiogram- 12 Lead; Status:Complete; Done: 20Qho9054 IO Event Monitor 30 days; Status:Active - Perform Order,Retrospective Authorization; Requested for:[id number]; SocHx: Never a smoker Tobacco Use Screening; Status:Complete; Done: 26Orc0006 Patient Instructions Please bring all medicines, vitamins, [...] claudication an (more content not included)... Normal [facility] Tobacco Screening.on Fall risk assessment a) No falls within the last year -[facility] [employer] DO Work Phone: Tobacco use status CP b) No -[facility] [employer] DO Work Phone: GLYCOHEMOGLOBIN A1Con 2021 ADA RECOMMENDATION SEE BELOW Normal [facility] Comment on above: Result Comment: ADA RECOMMENDED LIMIT 4.0 - 6.0 ADA THERAPEUTIC TARGET < 7.0 ACTION SUGGESTED > 7.0 Performed By: #### A 1C #### [facility] [address] [address] [address] Doug Payne Glucose [Mass/Vol] 137 mg/dL Normal [facility] Comment on above: Performed By: #### A 1C #### [facility] [address] [address] [address] Doug Payne HbA1c (Bld) [Mass fraction] 6.4 % Critically high 4.5-6.2 [facility] Comment on above: Performed By: #### A 1C #### [facility] [address] [address] [address] Doug Payne LIPID PROFILEon 10-17-2021 CHOL-HDL RATIO NORM SEE BELOW Normal [facility] Comment on above: Result Comment: 3.3 - 4.4 LOW RISK 4.4 - 7.1 AVERAGE RISK 7.1 - 11.0 MODERATE RISK >11.0 HIGH RISK Performed By: #### A LT, LIPID, AST ####[facility] [address] [address]Dr. Doug Payne Cholesterol [Mass/Vol] 112 mg/dL Normal <=200 [facility] Comment on above: Performed By: #### A LT, LIPID, AST ####[facility] [address] [place] [address]Dr. Doug Payne Cholesterol in HDL [Mass/Vol] 27 mg/dL Critically low 40-60 [facility] Comment on above: Performed By: #### A LT, LIPID, AST ####[facility] [address] [place] [address]Dr. Doug Payne Cholesterol in LDL [Mass/Vol] 58.4 mg/dL Normal [facility] Comment on above: Performed By: #### A LT, LIPID, AST ####[facility] [address] [place] [address]Dr. Doug Payne Cholesterol.total/C holesterol in HDL [Mass ratio] 4.1 {ratio} Normal [facility] Comment on above: Performed By: #### A LT, LIPID, AST ####[facility] [address] [place] [address]Dr. Doug Payne HDL NORMAL > or = 60 mg/dl - LO W CARDIOVASCULAR RISK <40 mg/dl - HIGH CARDIOVASCULAR RISK Normal [facility] Comment on above: Performed By: #### A LT, LIPID, AST ####[facility] [address] [place] [id number]. Doug Payne LDL CALC NORMAL SEE BELOW Normal [facility] Comment on above: Result Comment: <100 mg/dl OPTIMAL 100 - 129 mg/dl NEAR OR ABOVE OPTIMAL 130 - 159 mg/dl BORDERLINE HIGH 160 - 189 mg/dl HIGH >190 mg/dl VERY HIGH Performed By: #### A LT, LIPID, AST ####[facility] [address] [place] [id number]. Doug Payne Triglyceride [Mass/Vol] 133 mg/dL Normal <=150 [facility] Comment on above: Performed By: #### A LT, LIPID, AST ####[facility] [address] [place] [id number]. Doug Payne VLDL CALC 26.6 mg/dL Normal [facility] Comment on above: Performed By: #### A LT, LIPID, AST ####[facility] [address] [place], [place] [address]Jj. Doug Payne SGOTon 10-17-2021 AST [Catalytic activity/Vol] 15 U/L Normal 15-37 [facility] Comment on above: Performed By: #### A LT, LIPID, AST ####[facility] [address] [place], [place] [address]Cw. Doug Payne SGPTon 10-17-2021 ALT [Catalytic activity/Vol] 23 U/L Normal 16-63 [facility] Comment on above: Performed By: #### A LT, LIPID, AST ####[facility] [address] [place], [place] [address]Ej. Doug Payne Office Visit (Cardiology)on 10-16-2021 Follow-up [...] in adult Healthy Weight Tips; Status:Complete; Done: 41Nli0099 Hyperlipemia ALT - Alanine Aminotransferase, Serum; Status:Active; Requested for:74Itk4700; AST; Status:Active; Requested for:[id number]; Lipid Panel; Status:Active; Requested for:[id number]; SocHx: Never a smoker Tobacco Use Screening; Status:Complete; Done: 09Rwz0524 Patient Instructions Please bring all medicines, vitamins, [...] Recorded: 16Oct2021 11:02AM Heart Rate60, R Radial Yyqclngb697, RUE, Sitting Rzumrgfly75, RUE, Sitting Height5 ft 11 in Vmfpvf643 lb BMI Wejrapdbir27.57 kg/m2 BSA Calculated2.34 Tobacco Useb) No PHQ-2 [...] Oct 16 2021 11:35AM EST (Author) Normal [facility] Tobacco Screening.on 022 Adult depression screening assessment No [facility] [employer] DO Work Phone: Tobacco use status CPHS b) No [facility] Work [facility]: XR CSPINE OBL [...] by: ADRI RODRIGUEZ Date: 2021-07-15 10:27 Normal [facility] Radiologyon 01-19-2021 CTA Chest vessels Normal [facility] [address] [place] Work Phone: Laboratory - Chemistry and C hemistry - challengeon 01-12-2021 CO2 [Moles/Vol] 26 mmol/L Normal 21-31 [facility] DO Work Phone: No Panel Informationon 01-12 14 {mEq/L} Normal 6-16 [facility] Work Phone: 100 mmol/L below low threshold 101-111 [facility] DO Work Phone: 4.6 mmol/L Normal 3.5-5.3 [facility] DO Work Phone: 135 mmol/L Normal 135-145 [facility] DO Work Phone: 9.2 mg/dL Normal 8.9-11.1 [facility] DO Work Phone: 19 {No_Units} Normal 10-20 [facility] 600 DO Work Phone: 1.0 mg/dL Normal 0.5-1.3 [facility] DO Work Phone: 19 mg/dL Normal 5-21 [facility] DO Work Phone: 195 mg/dL Normal 55-199 [facility] DO Work Phone: Comment on above: If this glucose resu lt represents a fasting glucose, interpretation should refer to the following reference range: 55-99 mg/dL >60 Normal >=59 [facility] DO Work Phone: Comment on above: eGFR is race adjuste d. AA=. Chronic kidney disea se could be indicated at eGFR's of less than 60 mL/min/1.73m2. Kidney failure is indicated at less than 15 mL/min/1.73m2. Tobacco Screening.on 021 Tobacco use status CPHS b) No [facility] [address] DO Work Phone: Cardiovascular Lab Reporton 04-29-2019 Cardiovascular Lab Report [facility] Patient Name: Roxann Johnson [facility] MR #: [id number] Physician: Jatinder Hastings of [facility] Cobb Medicine Service Date: 04/28/2019 Division of Birthdate: 1960 Cardiology Room #: [facility] Cardiovascular Services [facility] [address] [facility]. [place] [address] Cardiovascular Laboratory Report PROCEDURE: Transesophageal echocardiogram and cardioversion. INDICATION: Atrial fibrillation. FELLOW: Summer Villasenor M.D. PROCEDURE IN DETAILS: An informed consent was obtained from the patient after explaining the indication, risks, and benefits, and alternatives. The patient understood and agreed and signed the consent form. The patient was brought to the rd lab technician and SIL was performed under conscious sedation. [...] Villasenor MD Date Trans: 04/29/2019 07:17 A/ronan [id number] cc: Caroline Blount, MSN, XM1 [employer] DRIVER-C Department Of Surgery [place] [address] [facility] [address] Eugene Mariscal M.D. [address] [facility] [facility] [address] [facility] Vital Signs Date Time Vital Sign Value Performing Clinician Bettyi felicity 03-28-2023 08:31-0500 Body height 180.3 cm Matthew Hood MD Work Phone: [facility] [employer] 03-28-2023 08:31-0500 Body mass index (BMI) [Ratio] 34.73 kg/m2 Matthew Hood [facility] 03-28-2023 08:31-0500 Body weight 112.95 kg Matthew Hood MD [facility] 03-28-2023 08:31-0500 Diastolic blood pressure 92 mm[Hg] Matthew Hood MD Work Phone: [facility] [employer] 03-28-2023 08:31-0500 Heart rate 86 /min Matthew Hood MD Work Phone: [facility] 03-28-2023 08:31-0500 SaO2% (BldA) [Mass fraction] 92 % Matthew Hood MD Work Phone: [facility] 03-28-2023 08:31-0500 Systolic blood pressure 126 mm[Hg] Matthew Hood MD Work Phone: [facility] [employer] 09-12-2022 10:11-0400 Body height 180.34 cm Eugene Mariscal Work Phone: [facility] [employer] 600 DO Work Phone: 09-12-2022 10:11-0400 Body mass index (BMI) [Ratio] 35.84 kg/m2 Eugene Mariscal Work Phone: [facility] [employer] 600 DO Work Phone: 09-12-2022 10:11-0400 Body surface area Derived from formula 2.35 m2 Eugene Wills Naderer Work Phone: [facility] [employer] 600 DO Work Phone: 09-12-2022 10:11-0400 Body weight 116.58 kg Eugene Wills Naderer Work Phone: [facility] [employer] 600 DO Work Phone: 09-12-2022 10:11-0400 Diastolic blood pressure 88 mm[Hg] Eugene Wills Naderer Work Phone: [facility] [employer] 600 DO Work Phone: 09-12-2022 10:11-0400 Heart rate 52 /min Eugene Wills Naderer Work Phone: [facility] [employer] 600 DO Work Phone: 09-12-2022 10:11-0400 Systolic blood pressure 138 mm[Hg] Eugene Wills Naderer Work Phone: [facility] [employer] 600 DO Work Phone: 03-05-2022 11:12-0500 Body height 180.34 cm Eugene Wills Naderer Work Phone: [facility] [employer] 600 DO Work Phone: 03-05-2022 11:12-0500 Body mass index (BMI) [Ratio] 36 kg/m2 Eugene Wills Naderer Work Phone: [facility] [employer] 600 DO Work Phone: 03-05-2022 11:12-0500 Body surface area Derived from formula 2.35 m2 Eugene Wills Naderer Work Phone: [facility] [employer] 600 DO Work Phone: 03-05-2022 11:12-0500 Body weight 117.09 kg Eugene Wills Naderer Work Phone: [facility] 600 DO Work Phone: 03-05-2022 11:12-0500 Diastolic blood pressure 80 mm[Hg] Eugene A Naderer Work Phone: [facility] [employer] 600 DO Work Phone: 03-05-2022 11:12-0500 Heart rate 52 /min Eugene A Naderer Work Phone: [facility] [employer] 600 DO Work Phone: 03-05-2022 11:12-0500 Systolic blood pressure 120 mm[Hg] Eugene A Naderer Work Phone: [facility] [employer] 600 DO Work Phone: 10-16-2021 11:02-0400 Body height 180.34 cm Eugene A Naderer Work Phone: [facility] [employer] 600 DO Work Phone: 10-16-2021 11:02-0400 Body mass index (BMI) [Ratio] 35.57 kg/m2 Eugene A Naderer Work Phone: [facility] [employer] 600 DO Work Phone: 10-16-2021 11:02-0400 Body surface area Derived from formula 2.34 m2 Eugene A Naderer Work Phone: [facility] [employer] 600 DO Work Phone: 10-16-2021 11:02-0400 Body weight 115.67 kg Eugene A Naderer Work Phone: [facility] [employer] 600 DO Work Phone: 10-16-2021 11:02-0400 Diastolic blood pressure 70 mm[Hg] Eugene A Naderer Work Phone: [facility] [employer] 600 DO Work Phone: 10-16-2021 11:02-0400 Heart rate 60 /min Eugene Mariscal Work Phone: [facility] 600 DO Work Phone: 10-16-2021 11:02-0400 Systolic blood pressure 128 mm[Hg] Eugene Mariscal Work Phone: [facility] 600 DO Work Phone: 01-12-2021 10:31-0400 Body height 180.34 cm Referring Provider Unknown [facility] 600 DO Work Phone: 01-12-2021 10:31-0400 Body mass index (BMI) [Ratio] 36.12 kg/m2 Referring Provider Unknown [facility] 600 DO Work Phone: 01-12-2021 10:31-0400 Body surface area Derived from formula 2.35 m2 Referring Provider Unknown [facility] 600 DO Work Phone: 01-12-2021 10:31-0400 Body weight 117.48 kg Referring Provider Unknown [facility] 600 DO Work Phone: 01-12-2021 10:31-0400 Diastolic blood pressure 88 mm[Hg] Referring Provider Unknown [facility] 600 DO Work Phone: 01-12-2021 10:31-0400 Heart rate 58 /min Referring Provider Unknown [facility] 600 DO Work Phone: 01-12-2021 10:31-0400 Systolic blood pressure 138 mm[Hg] Referring Provider Unknown [facility] 600 DO Work Phone: Encounters Encounter Date Encounter Type Care Provider Facility Start: 07-07-2023 End: 07-07-2023 ambulatory EUGENE MARISCAL Not Available Start: 05-13-2023 Telephone encounter Maryuri Macias RN [facility] Comment on above: overdue INR (1st att empt) Start: 05-03-2023 Refill Bertha Call jose alfredo MUÑOZN-NORIS Work Phone: [facility] - Casimiro Perales Start: 04-07-2023 End: 04-07-2023 ambulatory EUGENE MARISCAL Not Available Start: 03-28-2023 End: 03-28-2023 ambulatory MATTHEW HOOD [facility] Start: 03-28-2023 End: 03-28-2023 Office outpatient visit 25 minutes Matthew Hood MD Work Phone: [facility] Comment on above: S/P AVR (aortic valv e replacement) (Primary Dx); Aneurysm of ascending aorta without rupture ([facility]); Paroxysmal atrial fibrillation ([facility]); Anticoagulant long-term use Start: 03-27-2023 Telephone encounter Anna Colon CMA [facility] Start: 03-18-2023 Follow-up encounter Kay pinedo Work Phone: [facility] Medication Therapy Management Comment on above: S/P AVR (aortic valv e replacement) (Primary Dx); Atrial fibrillation Start: 03-13-2023 End: 03-13-2023 ambulatory FREDDY RASHIDVINAYAKBeena Not Available Start: 09-12-2022 End: 06-20-2023 Pre-admission assessment Phillip Ford [facility] Start: 09-12-2022 Office outpatient vi sit 25 minutes [facility]cal [facility] Work Phone: Start: 09-12-[address] Phillip Ford Facility: Start: 07-10-2022 Telephone encounter Eugene [facility]dero [facility] Work Phone: Start: 06-12-2022 Rx Renewal [facility]cal [facility] Work Phone: Start: 06-11-2022 End: 06-12-[address] EUGENE MARISCAL Facility:H1 Start: 04-15-[address] Phillip Ford Facility: Start: 03-19-2022 End: 03-20-2022 ambulatory SHAIKH Imelda MATHURREBEKA Facility:[facility]1 Start: 03-06-2022 EVENT MICHAEL, Provider : MIKAELA [id number] BOX OFFICE ATTENDANT 1,[id number], Status: Pen, Time: 3:00 PM Eugene Mariscal Work Phone: [facility] 600 DO Work Phone: Start: 03-06-2022 Patient encounter procedure Eugene Mariscal Work Phone: [facility] 600 DO Work Phone: Start: 03-06-[address] Phillip Ford Facility: Start: 03-05-2022 Office outpatient vi sit 25 minutes Eugene Robertsonr Work Phone: [facility] 600 DO Work Phone: Start: 03-05-[address] Eugene Mariscal Facility: Start: 02-18-2022 Rx Renewal Eugene Mariscal Work Phone: [facility] 250 DO Work Phone: Start: 11-19-2021 End: 11-20-[address] EUGENE MARISCAL Facility:H1 Start: 10-17-2021 End: 10-18-[address] PHILLIP FORD Facility:H1 Start: 10-16-2021 Office outpatient vi sit 25 minutes Eugene Mariscal Work Phone: [facility] 600 DO Work Phone: Start: 10-16-[address] Phillip Ford Facility: Start: 08-15-2021 End: 08-16-[address] AILYN DEL VALLE . Facility:H1 Start: 07-31-2021 End: 07-31-[address] AILYN DEL VALLE . Facility:H1 Start: 07-13-2021 End: 07-14-[address] DOCTOR SIEGEL Facility:H1 Start: 07-12-2021 End: 07-13-[address] AILYN DEL VALLE . Facility:H1 Start: 06-20-2021 Rx Renewal Referring Prov ider Unknown [facility] 250 DO Work Phone: Start: 01-22-2021 Chart Update Referring Prov ider Unknown [facility] [address] [place] Work Phone: Start: 01-12-2021 Chart Update Referring Prov ider Unknown [facility] 600 DO Work Phone: Start: 01-12-2021 Office outpatient vi sit 25 minutes Referring Provider Unknown [facility] 600 DO Work Phone: Procedures Date Procedure Procedure Detail Performing Clinician Start: 03-28-2023 Follow-up visit Follow-up MATTHEW HOOD Start: 02-28-2023 Adult depression scr eening assessment Anna Colon [employer] Start: 06-11-2022 PSA screening SHAIKH KEVAN STALEY Comment on above: Performed By: #### P [facility] ####[place] [id number] [place] [id number] Payne Start: 04-24-2019 Total colonoscopy Refer ring Provider Unknown Start: 04-09-2019 Colonoscopy Anna houston [facility] Cardiac catheterization Refe rring Provider Unknown Hernia repair Referring Prov ider Unknown Plan of Treatment Date Care Activity Detail Author Start: 06-15-2032 DTaP,Tdap and Td Vaccines (2 - Td or Tdap) DTaP,Tdap and Td Vaccines (2 - Td or Tdap) [facility] Start: 04-09-2029 Screening for malignant neoplasm of colon Colonoscopy [facility] Start: 03-28-2024 Adult BMI Screening Adult BMI Screening [facility] Start: 03-28-2024 Tobacco Screening Tobacco Screening [facility] Start: 03-11-2024 Adult BMI Screening Adult BMI Screening [facility] Start: 02-29-2024 Depression Screening Depression Screening [facility] Start: 02-29-2024 Tobacco Screening Tobacco Screening [facility] Start: 06-24-2023 FUV, Provider: Phillip Ford, Status: Pen, Time: 9:10 AM FUV, Provider: Phillip Ford, Status: Abundio, Time: 9:10 AM [facility] 600 DO Work Phone: Start: 04-15-2023 End: 04-15-2023 Patient encounter procedure 04/15/2023 2:00 PM EST Appointment [facility] [address] [place] [address] Matthew Hood MD [address] [place], [place] [id number] [facility] Start: 03-28-2023 End: 03-28-2024 Echo complete W/O contrast Echo complete W/O contrast Echocardiography Routine Aneurysm of ascending aorta without rupture ([facility]) S/P AVR (aortic valve replacement) Expected: 03/28/2023, Expires: 03[facility]28/2024 [facility] Work [facility]: Comment on above: Expected: 03/28/2023, Expires: Start: 03-28-2023 End: 03-28-2023 Patient encounter procedure 03/28/2023 8:45 AM EST Office Visit [facility] [address] [place] [id number] Matthew Hood MD [address] [place] [address] [facility] Start: 11-22-2022 Influenza vaccination Influenza Vaccine [facility] Start: 09-19-2022 FUV, Provider: Phillip Ford, Status: Pen, Time: 9:40 AM FUV, Provider: Phillip Ford, Status: Pen, Time: 9:[address] [facility] 600 DO Work Phone: Start: 09-12-2022 FUV, Provider: Phillip Ford, Status: Pen, Time: 9:40 AM FUV, Provider: Phillip Ford, Status: Pen, Time: 9:[address] [facility] 250 DO Work Phone: Start: 06-26-2022 FUV, Provider: Phillip Ford, Status: Pen, Time: 9:40 AM FUV, Provider: Phillip Ford, Status: Pen, Time: 9:[address] [facility] 600 DO Work Phone: Start: 10-16-2021 FUV, Provider: Phillip Ford, Status: Pen, Time: 10:30 AM FUV, Provider: Phillip Ford, Status: Pen, Time: 10:[address] [facility] 600 DO Work Phone: Start: 10-16-2021 FUV, Provider: Phillip Ford, Status: Pen, Time: 10:10 AM FUV, Provider: Phillip Ford, Status: Pen, Time: 10:[address] [facility] 600 DO Work Phone: Start: 1978 Adult BMI Follow Up Plan Adult BMI Follow Up Plan [facility] Start: 1978 Diabetic foot examination Diabetic Foot Exam [facility] Start: 1960 Glaucoma screening Diabetic Ophthalmology Exam [facility] Start: 1960 Urine screening for protein Urine Microalbumin [facility] End: 09-26-2023 Ambulatory referral to [facility] ([facility]) Ambulatory referral to Cardiac Rehabilitation ([facility]) Card Rehab Routine Aneurysm of ascending aorta without rupture ([facility]) S/P AVR (aortic valve replacement) Per Treatment Plan for 36 Occurrences starting 03/28/2023 until 09/26/2023 [facility] Comment on above: Per Treatment Plan for [address] [facility] 03/28/2023 until 09/26/2023 Immunizations Immunization Date Immunization Notes Care Provider Kevan chowdary 09-08-2022 zoster vaccine recombinant Eugene A Naderer Work Phone: [facility] 600 DO Work Phone: 06-15-2022 tetanus toxoid, redu heidi diphtheria toxoid, and acellular pertussis vaccine, adsorbed Eugene A Naderer Work Phone: [facility] 600 DO Work Phone: 06-15-2022 zoster vaccine recombinant Eugene A Naderer Work Phone: [facility] 600 DO Work Phone: 02-19-2020 influenza, injectabl e, quadrivalent, preservative free Referring Provider Unknown [facility] 600 DO Work Phone: 02-19-2020 influenza virus vaccine, unspecified formulation Anna Colon [facility] 12-31-2019 influenza, seasonal, injectable Referring Provider Unknown [facility] 600 DO Work Phone: 12-22-2018 influenza, seasonal, injectable Referring Provider Unknown [facility] 600 DO Work Phone: 01-11-2018 influenza, injectabl e, quadrivalent, preservative free Referring Provider Unknown [facility] 600 DO Work Phone: 01-28-2016 influenza, injectabl e, quadrivalent, preservative free Referring Provider Unknown [facility] 600 DO Work Phone: Payers Date Payer Category Payer Medicare [id number] 2021 Medicaid [id number] 2021 Medicare [id number] 1960 Unknown [id number] 2.16.84 0.1.646969.3.579.2.593 1960 Unknown [id number] 2.16.84 0.1.239479.3.579.2.593 1960 Unknown [id number] 2.16.84 0.1.366436.3.579.2.593 1960 Unknown [id number] 2.16.84 0.1.865535.3.579.2.593 1960 Unknown [id number] 2.16.84 0.1.671123.3.579.2.593 1960 Unknown [id number] 2.16.84 0.1.182733.3.579.2.593 1960 Unknown [id number] 2.16.84 0.1.805058.3.579.2.593 1960 Unknown [id number] 2.16.84 0.1.856940.3.579.2.593 1960 Unknown [id number] 2.16. 840.1.313414.3.579.2.356 1960 Unknown [id number] 2.16. 840.1.690834.3.579.2.356 1960 Unknown [id number] 2.16. 840.1.421660.3.579.2.356 1960 Unknown [id number] 2.16. 840.1.714174.3.579.2.356 1960 Unknown [id number] 2.16. 840.1.118944.3.579.2.356 1960 Unknown [id number] 2.16.84 0.1.068630.3.579.2.1286 1960 Unknown [id number] 2.16.84 0.1.429955.3.579.2.1259 1960 Unknown [id number] 2.16.84 0.1.090359.3.579.2.1259 1960 Unknown [id number] 2.16.840 .1.317838.3.579.2.1259 1959 Medicare [id number] 1959 Unknown [id number] Medicaid [id number] Unknown Social History Date Type Detail Facility Start: 05-04-2020 End: 02-28-2023 Caffeine use Caffeine use -[facility] [employer] DO Work Phone: Comment on above: decaf coffee, caffei ne free soda; Start: 10-26-2019 End: 10-25-2022 Tobacco smoking status NHIS Never smoked tobacco [facility] Start: 10-25-2022 Tobacco use and exposure Forme r smokeless tobacco user [facility] End: 02-15-2018 History of tobacco use Chews Tobacco [facility] Start: 03-03-2023 End: 03-28-2023 Alcohol intake Ex-drinker (finding) [facility] Start: 05-04-2020 End: 02-28-2023 Alcohol Use Disorder Identification Test - Consumption [AUDIT-C] [facility] How often to you hav e a drink containing alcohol? Never [facility] How many standard dr inks containing alcohol do you have on a typical day? Patient does not drink [facility] Start: 1960 Sex Assigned At Not on file P [facility] Medical Equipment Procedure Code Equipment Code Equipment Origin al Text Equipment Identifier Dates Valve Aor 11cm 2 6mm 36mm 23.4mm Onx Vascutek Glwv Vslv [facility] - [id number] - [id number] Start: 02-27-2023 USE 1 STRIP TO C HECK GLUCOSE ONCE DAILY [id number] Start: 12-08-2019 Goals Date Patient Goal Desired [...] pt, however NA/NM.hrs documented in this encounter [facility] 05-13-2023 Telephone encounter Note Pt on overdue INR list; attempted to call pt, however NA/NM.hrs [facility] 03-28-2023 History of Presen t illness Narrative Roxann Johnson Date of visit: 03/28/2023 Date of : 1960 Age: 62 y.o. Patient Active Problem List Diagnosis Aneurysm of ascending aorta without rupture ([facility]) Nonrheumatic aortic valve insufficiency Atrial fibrillation Chest pain Shortness of breath Anticoagulant long-term use At low risk for fall Benign essential hypertension Gastroesophageal reflux disease Gout Obesity with body mass index (BMI) of 30.0 to 39.9 Osteoarthritis Sleep apnea Umbilical hernia without obstruction or gangrene Vitamin D deficiency S/P AVR (aortic valve replacement) Paroxysmal atrial fibrillation ([facility]) No Known Allergies Current Outpatient Medications Medication [...] breath. Past Medical History: Diagnosis Date Aneurysm ([facility]) Aortic aneurysm ([facility]) Cardiovascular disease Diabetes mellitus ([facility]) Gout Hyperlipidemia Hypertension No data recorded No data recorded No data recorded Past Surgical History: Procedure Laterality Date . N/A 12/09/2022 Performed by Fredi Lechuga MD at [facility] CARDIAC CATH LABS ASCENDING AORTIC ANEURYSM REPAIR WITH REPLACEMENT OF AORTIC ROOT AND AORTIC VALVE REPLACEMENT -MODIFIED BENTALL PROCEDURE USING ON-X ASCENDING AORTIC PROSTHESIS/LIGATION OF ATRIAL APPENDAGE WITH 45MM PENDITURE CLAMP/SIL N/A 02/27/2023 Performed by David Black MD at [facility] CARDIAC CATHETERIZATION Cardiac catheterization- CORS+RIGHT HEART+LV GRAM/PRESS (08534) with root injection N/A 12/09/2022 Performed by Fredi Lechuga MD at [facility] CARDIAC CATH LABS COLONOSCOPY Inject aortic root complete N/A 12/09/2022 Performed by Fredi Lechuga MD at [facility] CARDIAC CATH LABS Right heart cath N/A 12/09/2022 Performed by Fredi Lechuga MD at [facility] CARDIAC CATH LABS Family History Problem [...] rehab but she wants to do through [place] 4. Ensure he is set up for [...] Referring Physician: Eugene Mariscal MD [address] [place] [address] Faxed referral for cardiac rehab to [facility] per pt request at [phone] Lmom for [facility] MTM regarding referral documented in this encounter [facility] 03-27-2023 Miscellaneous Notes Called patient to remind them to bring their most current copy of their medication list with them to their appt. Patient verbalizes understanding. documented in this encounter [facility] 03-27-2023 Telephone encounter Note Called patient to remind them to bring their most current copy of their medication list with them to their appt. Patient verbalizes understanding. [facility] [employer] [facility] 03-18-2023 History of Presen t illness Narrative Kate au/ Saman Campoverde [facility]. INR today: 2.3 PT today: 28.1 Contact pt w/ dosing instructions. Patient appeared on the 30 day OD INR report. Appears the patient was seen. See notes below. Noted. INR noted below was from >7 days ago thus no warfarin dose can be provided. Lead Web Application Developer reached out to Ray who confirms patient was discharged from services on 03/25/23. Lead Web Application Developer spoke to patient who confirms he remains on warfarin therapy and was under the impression his PCP was taking over his care so he can go to [facility] in [place] for INR checks. He has not had his INR checked recently, though. Explained to patient that INR recheck is needed and this can be completed at [facility] POC with our team or through his PCP if he prefers. Patient to reach out to PCP office on Friday04/14/23 when they re-open to confirm. If PCP unable to monitor, patient agreeable to [facility] POC appt next week. - Luann Rodgers [facility] 04/11/23 2:58 PM Luann Rodgers, [facility] 04/11/23 1459 documented in this encounter [facility] 03-06-2022 Note Reason For Visit Indication palpitation [...] MD Enrollment sent to: [employer] Monitor number [id number] applied. Holter monitor printed and placed on Dr. Phillip Ford MD desk to dictate. Diagnosis/Problems Assessed Palpitations (785.1) (R00.2) Paroxysmal atrial fibrillation (427.31) (I48.0) Future Appointments Date/TimeProviderSpecialtySite 09/19/2022 09:40 Phillip Méndez [id number] [facility] [address] 600 DO Signatures Electronically signed by : Phillip Ford MD; Apr 15 2022 5:34PM EST (Author) [facility] 10-16-2021 History of Presen t illness Narrative [...] profile6. Follow-up in [address] [facility] 600 DO Work Phone: 08-15-2021 Note CONSULTATION [...] plan of care and all questions answered. [facility] Signed and Approved by: KATE TIM . 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 Sleeping [...] review cervical x-rays with him as wel [facility] Signed and Approved by: KATE TIM . 07/18/2021 16:14:00 [facility] Evaluation + Plan note No data available for this section [facility] Evaluation note Diagnosis S/P AVR (aortic valve replacement)- Primary Heart valve replaced by other means Aneurysm of ascending aorta without rupture ([facility]) Paroxysmal atrial fibrillation ([facility]) Atrial fibrillation Anticoagulant long-term use Encounter for long-term (current) use of 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 documented [facility] this encounter [facility] Diagnosis S/P AVR (aortic valve replacement)- Primary Heart valve replaced by other means Atrial fibrillation documented in this encounter [facility] of Present illness Narrative* Patient is [...] him to monitor his blood pressure closely -[facility] 600 DO Work Phone: History of [...] him to monitor his blood pressure closely [facility] 600 DO Work Phone: Hospital Discharge instructions No data available for this section [facility] on filedocumented in this encounter [facility] on filedocumented in this encounter [facility]ructionsNot on filedocumented in this encounter [facility]Not on filedocumented in this encounter [facility]Not on filedocumented in this encounter [facility] No data available for this section [facility] (narrative)* Consultation (Routine) - Pending Review Specialty Diagnoses / Procedures Referred By Misael t Referred To Contact Cardiac Rehabilitation Diagnoses Aneurysm of ascending aorta without rupture ([facility]) S/P AVR (aortic valve replacement) Procedures Ambulatory referral to Cardiac Rehabilitation ([facility]) Matthew Hood MD [address] [address] Referral ID Status Reason Start Date Expiration Date V isits Requested Visits Authorized [id number] Pending Review 03/28/2023 03/27/2024 36 36 * Cardiology (Routine) - Pending Review Specialty Diagnoses / Procedures Referred By Contac t Referred To Contact Diagnoses Aneurysm of ascending aorta without rupture ([facility]) S/P AVR (aortic valve replacement) Procedures Echo complete W/O contrast Matthew Hood MD [address] [place] [address] Referral ID Status Reason Start Date Expiration Date V isits Requested Visits Authorized [id number] Pending Review 03/28/2023 03/27/2024 1 1 [facility] Purpose Family History No Family [...] section and content) DATE CREATED AUTHOR 08/07/2019 [facility] DATE CREATED AUTHOR AUTHOR'S ORGANIZ ATION 06/16/2022 [facility] DATE CREATED AUTHOR AUTHOR'S ORGANIZ ATION 09/13/2022 [facility] DATE CREATED AUTHOR AUTHOR'S ORGANIZ ATION 09/13/2022 [facility] DATE CREATED AUTHOR AUTHOR'S ORGANIZ ATION 03/10/2023 [facility] DATE CREATED AUTHOR AUTHOR'S ORGANIZ ATION 03/30/2023 [facility] DATE CREATED AUTHOR AUTHOR'S ORGANIZ ATION 06/19/2023 [facility] DATE CREATED AUTHOR AUTHOR'S ORGANIZ ATION 07/07/2023 [facility] EPIC Reason for Visit [...] Care Teams (unrecognized sec tion and content) Economics Lecturer Relationship Specialty Start Date End Date Eugene Mariscal MD [address] [place] [address] PCP - General Family Medicine 08/16/20 Economics Lecturer Relationship Specialty Start Date End Date Eugene Mariscal MD [address] [place] [address] PCP - General Family Medicine 08/16/20 Economics Lecturer Relationship Specialty Start Date End Date Eugene Mariscal MD [address] [place] [address] PCP - General Family Medicine 08/16/20 Economics Lecturer Relationship Specialty Start Date End Date Eugene Mariscal MD [address] [place] [address] PCP - General Family Medicine 08/16/20 FOR [...] BE BASED ON THE PRIMARY CLINICAL RECORDS. [facility]. provides no warranty or guarantee of the accuracy or completeness of information in this document.
[2023-11-20 09:30] LABS: Estimated Average Glucose 157 mg/dL; Glycohemoglobin A1C 7.1 % (4.5-6.2)
[2023-11-20 10:07] LABS: Uric Acid 5.4 mg/dL (3.5-7.2)
== END 2023-11-20 08:51 | disposition home or self-care (01) ==
LOC: LAB 08:51
PROVIDERS: PCP Family Medicine; Visit Provider Family Medicine
DX: E11.65 Type 2 diabetes mellitus with hyperglycemia (principal); M10.9 Gout, unspecified
CPT/HCPCS: 36415; 83036; 84550

== ENCOUNTER 2023-11-24 01:37 | Outpatient (RCR) | payer OTHER, SELFPAY | END 2023-12-22 23:41 | disposition home or self-care (01) | LOC: MM 01:37 | PROVIDERS: PCP Family Medicine; Visit Provider Internal Medicine | DX: Z51.81 Encounter for therapeutic drug level monitoring (principal); Z79.01 Long term (current) use of 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; Z95.2 Presence of prosthetic heart valve | CPT/HCPCS: 85610; G0463 ==

== ENCOUNTER 2023-12-23 02:33 | Outpatient (RCR) | payer OTHER, SELFPAY | END 2024-01-22 23:12 | disposition home or self-care (01) | LOC: MM 02:33 | PROVIDERS: PCP Family Medicine; Visit Provider Internal Medicine | DX: Z51.81 Encounter for therapeutic drug level monitoring (principal); Z79.01 Long term (current) use of 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; Z95.2 Presence of prosthetic heart valve | CPT/HCPCS: 85610; G0463 ==

== ENCOUNTER 2024-01-23 13:05 | Outpatient (RCR) | payer OTHER, SELFPAY | END 2024-02-21 23:59 | disposition home or self-care (01) | LOC: MM 13:05 | PROVIDERS: PCP Family Medicine; Visit Provider Internal Medicine | DX: Z51.81 Encounter for therapeutic drug level monitoring (principal); Z79.01 Long term (current) use of 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; Z95.2 Presence of prosthetic heart valve | CPT/HCPCS: 85610; G0463 ==

== ENCOUNTER 2024-01-26 18:17 | Emergency (ER) | payer OTHER, SELFPAY ==
[2024-01-26 18:23] VITALS: BP 183/105; PULSE 91; TEMP 36.8; O2SAT 94; BMI 34.9
--- NOTE | 2024-01-26 20:59 | ED.EXTPRO1 ---
HPI - Extremity Problem General Chief complaint: Extremity Problem, Nontraumatic Stated complaint: LEG PAIN/POSS GOUT FLARE UP Time Seen by Provider: 01/26/24 20:45 Source: patient Mode of arrival: walk-in Limitations: no limitations History of Present Illness HPI Narrative: This 63-year-old male with a history of gout presents for evaluation of left knee pain. The patient states the pain started in the past several days but last night became severe. His knee is warm and mildly swollen. He denies any recent injury. He has leftover Vicodin from a gout flare in the past but forgot about it and did not take any pain medication prior to coming to the ER. The pain radiates up into his thigh and into the back of his knee and down his leg. His calfs are soft and well-developed. The patient states that he and his go to the gym every day. He denies any injury at the gym stating that when he does use the bike he goes slow. He denies that he drinks alcohol and denies that he has been eating a lot of red meat. He was formally on allopurinol and his doctor increase him to allopurinol 300 mg for prophylaxis of his gout flares. He is diabetic. He states that when he was here in October he received a shot and pain medication. I reviewed the note from that visit and he received Kenalog and Percocet with clinical improvement. He denies any fevers or chills. He denies any chest pain or shortness of breath. Related Data Home Medications ?Medication ?Instructions ?Recorded ?Confirmed allopurinol 100 mg tablet 100 mg PO DAILY 11/16/23 11/16/23 atenolol 100 mg tablet 100 mg PO Q24H 11/16/23 11/16/23 atorvastatin 10 mg tablet 10 mg PO DAILY 11/16/23 11/16/23 carvedilol 6.25 mg tablet 6.25 mg PO Q12H 11/16/23 11/16/23 cholecalciferol (vitamin D3) 50 50 mcg PO DAILY 11/16/23 11/16/23 mcg (2,000 unit) tablet glipizide 10 mg tablet 5 mg PO DAILY 11/16/23 11/16/23 lisinopril 20 mg tablet mg 11/16/23 lisinopril 40 mg tablet 40 mg PO DAILY 11/16/23 11/16/23 metformin 500 mg tablet,extended 500 mg PO DAILY 11/16/23 11/16/23 release 24 hr Previous Rx's ?Medication ?Instructions ?Recorded oxycodone-acetaminophen 5 mg-325 1 tab PO Q6H PRN pain 3 days #12 11/16/23 mg tablet (Percocet) tabs Allergies Allergy/AdvReac Type Severity Reaction Status Date / Time No Known Drug Allergies Allergy Verified 01/26/24 18:27 Review of Systems ROS Status of ROS 10 or more systems reviewed and unremarkable except as noted in history and below Exam Narrative Exam Narrative: Vital signs and Nursing Notes reviewed: Patient is afebrile with a normal pulse, blood pressure is elevated at 183/105, he is not hypoxic with pulse ox of 94% on room air General: Alert, nontoxic adult male, he is uncomfortable when he has to stand to remove his pants HEENT: Normocephalic atraumatic, mucous membranes are moist and pink, eyes are clear, normal conjunctiva, vision is grossly intact Chest: Lungs are clear to auscultation with good air entry, there is no wheezing rhonchi or rales appreciated no accessory muscle use, patient is speaking in complete sentences-no chest wall tenderness to palpation CVS: Regular rate and rhythm S1-S2, audible click from replacement aortic valve, pulses are brisk and equal bilaterally Extremities: Legs were compared [id number]. There is no discrepancy in the patient's calves. Calf muscles are well-developed. Negative Homans' sign. The left knee is warm to the touch but not erythematous. It is tender to even light touch. I do not appreciate any Vilchis's cyst. Range of motion testing was not performed due to the patient's discomfort Skin: Normal in appearance without rash,pallor, petechiae or purpura Neuro: No focal deficits Constitutional Vital Signs, click to edit/add: Last Vital Signs Temp 98.2 F 01/26/24 18:23 Pulse 91 H 01/26/24 18:23 Resp 20 01/26/24 18:23 BP 183/105 H 01/26/24 18:23 Pulse Ox 94 L 01/26/24 18:23 Course Vital Signs Vital signs: Vital Signs Temperature 98.2 F 01/26/24 18:23 Pulse Rate 91 H 11/04/24 18:23 Respiratory Rate 20 01/26/24 18:23 Blood Pressure 183/105 H 01/26/24 18:23 Pulse Oximetry 94 L 01/26/24 18:23 Temperature 98.2 F 01/26/24 18:23 Pulse Rate 91 H 01/26/24 18:23 Respiratory Rate 20 01/26/24 18:23 Blood Pressure 183/105 H 01/26/24 18:23 Pulse Oximetry 94 L 01/26/24 18:23 MDM - Extremity (Nontraumatic) MDM Narrative Medical decision making narrative: This 63-year-old male with a history of gout presents for evaluation of left-sided knee pain that has been present for the past several days. He denies any injury. He had a gout flare in the right knee in October of this year and was treated with Kenalog and Percocet with clinical improvement. He does take indomethacin for prophylaxis for gout. His left knee is tender to the touch and warm without redness or any sign of septic arthritis. He has not had a fever. He denies any injury. Range of motion testing was unable to be performed due to the pain the patient was experiencing. I did not feel that imaging or labs were indicated. He was medicated with Kenalog and given oral Percocet and a Zofran to present nausea. He will be discharged home with prescription for Percocet to use for ongoing pain as needed. Discharge Plan Discharge Chief Complaint: Extremity Problem, Nontraumatic Clinical Impression: Gout attack Patient Disposition: Home, Self-Care Time of Disposition Decision: 21:09 Condition: Good Prescriptions / Home Meds: No Action allopurinol 100 mg tablet 100 mg PO DAILY atenolol 100 mg tablet 100 mg PO Q24H atorvastatin 10 mg tablet 10 mg PO DAILY carvedilol 6.25 mg tablet 6.25 mg PO Q12H cholecalciferol (vitamin D3) 50 mcg (2,000 unit) tablet 50 mcg PO DAILY glipizide 10 mg tablet 5 mg PO DAILY lisinopril 20 mg tablet lisinopril 40 mg tablet 40 mg PO DAILY metformin 500 mg tablet extended release 24 hr 500 mg PO DAILY oxycodone-acetaminophen [Percocet] 5-325 mg tablet 1 tab PO Q6H PRN (Reason: pain) 3 Days Qty: 12 0RF Print Language: Japanese Instructions: Low Purine Diet (ED), Gout (ED) Referrals: Naderer,Eugene, MD [Primary Care Provider] - 1 week
[2024-01-26] MEDS: OXYCODONE HCL/ACETAMINOPHEN 5MG/325MG 1 TAB PO (21:13)
[2024-01-26] MEDS: ONDANSETRON 4 MG RAPDIS TABLET SL (21:13)
[2024-01-26] MEDS: TRIAMCINOLONE ACETONIDE 40 MG/ML VIAL IM (21:14)
[2024-01-26 21:20] VITALS: BP 135/87; PULSE 97; O2SAT 95
--- NOTE | 2024-01-26 21:22 | PC.NURSE ---
pt refused to get into gown, states wants a shot , denies injury and reports h/o gout. states this is how all his gout feels.
== END 2024-01-26 21:23 | disposition home or self-care (01) ==
PROVIDERS: Emergency Provider Emergency Medicine; PCP Family Medicine
DX: M10.9 Gout, unspecified (principal); E11.9 Type 2 diabetes mellitus without complications; Z79.899 Other long term (current) drug therapy; Z79.84 Long term (current) use of oral hypoglycemic drugs
CPT/HCPCS: 96372; 99284; J3301; Q0162

== ENCOUNTER 2024-02-23 05:26 | Outpatient (RCR) | payer OTHER, SELFPAY | END 2024-03-23 09:18 | disposition home or self-care (01) | LOC: MM 05:26 | PROVIDERS: PCP Family Medicine; Visit Provider Internal Medicine | DX: Z51.81 Encounter for therapeutic drug level monitoring (principal); Z79.01 Long term (current) use of 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; Z95.2 Presence of prosthetic heart valve | CPT/HCPCS: 85610; G0463 ==

== ENCOUNTER 2024-03-25 01:56 | Outpatient (RCR) | payer OTHER, SELFPAY | END 2024-04-23 14:36 | disposition home or self-care (01) | LOC: MM 01:56 | PROVIDERS: PCP Family Medicine; Visit Provider Internal Medicine | DX: Z51.81 Encounter for therapeutic drug level monitoring (principal); Z79.01 Long term (current) use of 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; Z95.2 Presence of prosthetic heart valve | CPT/HCPCS: 85610; G0463 ==

== ENCOUNTER 2024-04-21 15:00 | Outpatient (OUT) | payer OTHER, SELFPAY ==
--- NOTE | 2024-04-21 15:01 | CA_ITS ---
Patient Name: ROXANN JOHNSON MR#: [id number] : 1960 Exam Date: 04/21/2024 Ordering Doctor: DR ANGELINE COBB M.D. ECHOCARDIOGRAM REPORT PROCEDURE: CA ECHO DOPPLER COMPLETE INDICATIONS: Prosthetic cardiac valve, aortic aneurysm COMPARISON: None. DESCRIPTION: COMPLETE ECHOCARDIOGRAM Real-time transthoracic echocardiography with 2D, M-mode, spectral and color flow Doppler performed. QUALITY: Technical quality was good. LEFT VENTRICLE: Normal chamber size. Moderate concentric left ventricular hypertrophy. Global left ventricular systolic function is normal. LV EF: Estimated left ventricular ejection fraction is 65%. DIASTOLIC: Diastolic function is indeterminate. ATRIAL SEPTUM: LEFT ATRIUM: Mild dilatation. RIGHT ATRIUM: Mild dilatation. RIGHT VENTRICLE: Normal chamber size. Normal right ventricular systolic function. TRICUSPID VALVE: Normal mobility and thickness. No stenosis with trivial regurgitation. No evidence of pulmonary hypertension. RVSP 32 mmHg MITRAL VALVE: Normal mobility and thickness. No evidence of mitral valve stenosis. There is no mitral annular calcification. Trivial mitral regurgitation. AORTIC VALVE: Mechanical valve with normal flow. Mechanical valve is well seated in the aortic position. Mean gradient 10.5 mmHg, peak velocity 2.1 m/s. No perivalvular regurgitation is identified. AORTIC ROOT: Normal diameter and appearance, measuring 3.1 cm. The ascending aorta is normal in size and measures 3.3 cm. PULMONIC VALVE: Normal thickness and mobility. No stenosis. Trivial regurgitation. PERICARDIUM: No evidence of pericardial effusion. IVC: Collapses with inspirations. Normal size. PLEURA: CONCLUSION: 1. Moderate concentric left ventricular hypertrophy with normal systolic function. LVEF is estimated at 65%. 2. Normal right ventricular size and systolic function. 3. Mild biatrial dilatation. 4. Mechanical aortic valve is well-seated with normal Doppler flows and no regurgitation. 5. Normal right-sided pressures. 6. The aortic root and ascending aorta appear to be of normal size. Adult Echocardiography Procedure Report Left Ventricle LVEDD (3.7 - 5.6 cm): 4.92 cm LVESD (2.2 - 4.0 cm): 3.50 cm LVIVS thickness (0.6 - 1.2 cm): 1.40 cm LVPW thickness (0.5 - 1.0 cm): 1.43 cm e': 0.08 m/s E - e': 11.58 LVOT Max Gradient: 3.18 mm[Hg] LVOT Area (cm2): 0.89 m/s Peak Velocity (LVOT): 0.89 m/s Mean Velocity (LVOT): 0.64 m/s LVOT Diameter 2.01 cm Left Ventricular Ejection Fraction: 65 % Left Atrium LA Volume Index (2D A2C): 34.08 ml/m2 Left Atrium Systolic Dimension: 3.68 cm Mitral Valve MV E to A Ratio: 1.19 Mitral Valve A-Wave Peak Velocity: 0.78 m/s Mitral Valve E-Wave Peak Velocity: 0.93 m/s Right Ventricle RV Internal Diastolic Dimension: 4.04 cm Aorta AO Root Diam: 3.06 cm Ascending Ao Diam: 3.25 cm Aortic Valve AoV Area (Peak Leonel): 1.44 cm2, 1.40 cm2, 1.64 cm2, 1.64 cm2 AoV Area (VTI): 1.55 cm2, 1.63 cm2 Peak Velocity(Antegrade Flow): 2.02 m/s, 1.93 m/s, 1.90 m/s, 1.97 m/s, 1.73 m/s Peak Gradient(Antegrade Flow): 16.33 mm[Hg], 14.95 mm[Hg], 14.50 mm[Hg], 15.47 mm[Hg], 11.92 mm[Hg] Mean Velocity(Antegrade Flow): 1.55 m/s, 1.31 m/s, 1.17 m/s, 1.26 m/s Mean Gradient(Antegrade Flow): 10.48 mm[Hg], 8.05 mm[Hg], 6.71 mm[Hg], 7.67 mm[Hg] Velocity Time Integral: 39.27 cm, 44.26 cm, 38.69 cm, 43.01 cm Tricuspid Valve Peak Velocity (Regurgitant Flow): 2.45 m/s, 2.70 m/s, 2.58 m/s Pulmonic Valve Mean Gradient: 3.59 mm[Hg] Mean Velocity: 0.88 m/s Peak Velocity: 1.31 m/s, 1.15 m/s Peak Gradient: 5.33 mm[Hg], 6.89 mm[Hg] Right Atrium Right Atrium Systolic Pressure: 56.13 ml, 56.13 ml Dictated by: Angeline Cobb M.D. on 04/21/2024 at 19:02 Approved by: Angeline Cobb M.D. on 04/21/2024 at 19:07
--- OUTSIDE RECORDS SUMMARY | 2024-04-21 15:13 | XMS_ITS | CCD ---
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 Role Phone Unknown, Referring Provider Unavailable Unav ailable Unavailable Unavailable Eugene Mariscal Unavailable SHAIKH Imelda ORTEGA Admitting Unavailable SHAIKH [...] NADERER, DR EUGENE Wills Primary Care Unavailable [place], DR ADRI Hernandez Consulting Unavailable GLENROY .KATE Consulting Unavailable DEL VALLE ., DR AILYN Craig Admitting Unavailable DEL VALLE ., DR AILYN Craig Attending Unavailable NADERER, DR EUGENE Wills Primary Care Unavailable GLENROY .KATE Consulting Unavailable IVON ., DR AILYN Craig Admitting Unavailable DEL VALLE ., DR AILYN Craig Attending Unavailable NADERER, DR EUGENE Wills Primary Care Unavailable DEL VALLE ., DR AILYN Craig Consulting Unavailable DEL VALLE ., DR AILYN Craig Admitting Unavailable DEL VALLE ., DR AILYN Craig Attending Unavailable NADEREEric, DR EUGENE Wills Primary Care Unavailable TIM ., KATE Consulting Unavailable Traboulssi, Dr. Fisher Attending Unavaila ble Naderer, Dr. Eugene Barraza Primary Care Unavai lable Logan, Dr. Fisher Referring Unavaila ble Traboulssi, Dr. Fisher Attending Unavaila ble Naderer, Dr. Eugene Barraza Primary Care Unavai lable Traboulcorinnei, Dr. Fisher Referring Unavaila ble Traboulssi, Dr. Fisher Attending Unavaila ble Naderer, Dr. Eugene Barraza Primary Care Chelova lable Logan, Dr. Fisher Referring Unavaila ble Naderer, Dr. Eugene Barraza Primary Care Unavai lable Trabuziel, Dr. Fisher Attending Unavaila ble Traboulssi, Dr. Fisher Referring Unavaila ble Traboulssi, Dr. Fisher Referring Unavaila ble UNKNOWN, PCP Primary Care Unavailable Traboulssi, Dr. Fisher Attending Unavaila ble NadEugene cordero MD Primary Care Provider MATTHEW HOOD Attending Unavailable EUGENE MARISCAL Referring Unavailable LOIDA, EUGENE Primary Care Unavailable EUGENE MARISCAL Primary Care Physician [phone] EUGENE MARISCAL Attending Unavailable LOIDA, EUGENE Attending Unavailable FREDDY MCLEOD Attending Unavailable LOIDA, EUGENE Attending Unavailable NADSUE, EUGENE Attending Unavailable Eugene Mariscal MD Primary Care Provider ANGELINE TUCKER Attending Unavailable Medications Current Medications Medication Drug Class(es) Dates Sig (Normalized) Sig (Original) allopurinol 300 mg oral tablet (20 sources) Xanthine Oxidase Inhibitor Start: 11-19-2023 take 1 tablet by mouth once daily allopurinol (Zyloprim) 300 MG tablet Indications: Gouty arthritis Take 1 tablet (300 mg) by mouth Daily 90 tablet 3 11/19/2023 Active Start: 10-23-2023 End: 11-19-2023 take 1 tablet by mouth once daily allopurinol (Zyloprim) 100 MG tablet Indications: Arthritis, gouty Take 1 tablet (100 mg) by mouth Daily 30 tablet 10/23/2023 11/19/2023 Discontinued (Reorder) Start: 01-25-2019 take 1 tablet by tatianna th once daily allopurinol 100 mg Tab 100 mg = 1 tab(s), Oral, Daily, Refills(s) 0 Start Date: 10/26/19 Status: Ordered aspirin 81 mg delayed release oral tablet (13 sources) Platelet Aggregation Inhibitor, Nonsteroidal Anti-inflammatory Drug Start: 10-26-2019 take 1 tablet by mouth once daily aspirin 81 mg Oral EC Tab 81 mg = 1 tab(s), Oral, Daily, Refills(s) 0 Start Date: 10/26/19 Status: Ordered atorvastatin 10 mg oral tablet (20 sources) HMG-CoA Reductase Inhibitor Start: 07-07-2023 take 1 tablet by mouth at bedtime atorvastatin (Lipitor) 10 MG tablet Indications: Type 2 diabetes mellitus with hyperglycemia, without long-term current use of insulin ([facility]) Take 1 tablet (10 mg) by mouth at bedtime 90 tablet 3 07/07/2023 Active Start: 06-20-2021 take 1 tablet by tatianna th once daily Atorvastatin Calcium 10 MG Oral Tablet take 1 tablet by mouth once daily Quantity: 90 Refills: 3 Ordered: 12-Jun-2022 Phillip Ford MD Start : 20-Jun-2021 Active carvedilol 6.25 mg oral tablet (10 sources) alpha-Adrenergic Catracho, beta-Adrenergic Catracho Start: 03-28-2023 take 1 tablet by mouth in the morning, then take 1 tablet by mouth at bedtime carvediloL (COREG) 6.25 mg tablet Take 1 tablet (6.25 mg total) by mouth in the morning and 1 tablet (6.25 mg total) before bedtime. 180 tablet 3 03/28/2023 Active cholecalciferol 0.05 mg oral tablet (15 sources) Vitamin D Start: 07-09-2023 take 1 tablet by mouth once daily cholecalciferol (Vitamin D-3) 50 MCG (1999) tablet Indications: Vitamin D deficiency Take 1 tablet (50 mcg) by mouth Daily 30 tablet 5 07/09/2023 Active take 1 capsule by mouth once cindy ly Vitamin D3 50 MCG (1999) Oral Capsule TAKE 1 CAPSULE Daily Quantity: 0 Refills: 0 Ordered: 12-Jan-2021 DO Active glipiZIDE 5 mg oral tablet (19 sources) Sulfonylurea Start: 07-07-2023 take 1 tablet by mouth once daily glipiZIDE (Glucotrol) 5 MG tablet Indications: Type 2 diabetes mellitus with hyperglycemia, without long-term current use of insulin (CMS/HCC) Take 1 tablet (5 mg) by mouth Daily 90 tablet 3 07/07/2023 Active take 1 tablet by tatianna th every twenty-four hours in the morning glipiZIDE (GLUCOTROL XL) 5 mg 24 hr tablet Take 1 tablet (5 mg total) by mouth in the morning. 0 Active take 1 tablet by mouth once robert y glipiZIDE 5 MG Oral Tablet TAKE 1 TABLET DAILY DIRECTED. Quantity: 0 Refills: 0 Ordered: 16-Oct-2021 DO Active lisinopril 20 mg oral tablet (20 sources) Angiotensin Converting Enzyme Inhibitor Start: 12-29-2023 take 1 tablet by mouth in the morning lisinopril 20 MG tablet Indications: Benign essential hypertension (CMS/HCC) TAKE 1 TABLET BY MOUTH IN THE MORNING 30 tablet 12/29/2023 Active Start: 10-06-2023 take 1 tablet by tatianna th in the morning lisinopril 20 MG tablet Indications: Benign essential hypertension (CMS/HCC) TAKE 1 TABLET BY MOUTH IN THE MORNING 30 tablet 10/06/2023 Active Start: 10-26-2019 take 1 tablet by tatianna th once daily lisinopril 40 mg Tab 40 mg = 1 tab(s), Oral, Daily, Refills(s) 0 Start Date: 10/26/19 Status: Ordered 24 hr metFORMIN hydrochloride 500 mg extended release oral tablet (20 sources) Biguanide Start: 10-13-2023 take 1 tablet by mouth once daily metFORMIN XR (Glucophage-XR) 500 MG 24 hr tablet Indications: Type 2 diabetes mellitus with hyperglycemia, without long-term current use of insulin (CMS/HCC) Take 1 tablet (500 mg) by mouth Daily 30 tablet 5 10/13/2023 Active Start: 12-11-2022 take 1 tablet by tatianna th every twenty-four hours in the morning metFORMIN [...] CHECK GLUCOSE ONCE DAILY 0 12/08/2019 Active predniSONE 50 mg oral tablet (7 sources) Start: 11-19-2023 End: 11-25-2023 take 1 tablet by mouth once daily predniSONE (Deltasone) 50 MG tablet Indications: Gouty arthritis Take 1 tablet (50 mg) by mouth Daily for 6 days 6 tablet 11/19/2023 11/25/2023 Active Start: 05-01-2020 predniSONE 50 MG Oral Tablet Quantity: 5 Refills: 0 Ordered: 01-May-2020 DO Start : 01-May-2020 Complete sildenafil 100 mg oral tablet (7 sources) Phosphodiesterase 5 Inhibitor Start: 04-07-2023 take 1 tablet by mouth once daily as needed sildenafil (Viagra) 100 MG tablet Indications: Vasculogenic erectile dysfunction, unspecified vasculogenic erectile dysfunction type Take 1 tablet (100 mg) by mouth Daily as needed for erectile dysfunction 10 tablet 5 04/07/2023 Active warfarin sodium 4 mg oral tablet (17 sources) Vitamin K Antagonist Start: 03-04-2023 take 1 tablet by mouth once daily warfarin (Coumadin) 4 MG tablet Take 4 mg by mouth 1 (one) time each day 03/04/2023 Active Start: 12-02-2019 Warfarin Sodiu m [...] 1 in am and 1/2 in pm benzonatate 200 mg oral capsule (4 sources) Non-narcotic Antitussive Start: 04-13-2020 Benzonatate 200 MG Oral Capsule Quantity: 30 Refills: 0 Ordered: 14-Apr-2020 DO Start : 13-Apr-2020 Complete betamethasone 0.5 mg/ml / clotrimazole 10 mg/ml topical cream (4 sources) Azole Antifungal, Corticosteroid Start: 01-04-2021 Clotrimazole-Betamet dhillon sone 1-0.05 % External Cream Quantity: 15 Refills: 0 Ordered: 04-Jan-2021 DO Start : 04-Jan-2021 Complete cefdinir 300 mg oral capsule (4 sources) Cephalosporin Antibacterial Start: 03-30-2020 Cefdinir 300 MG Oral Capsule Quantity: 20 Refills: 0 Ordered: 30-Mar-2020 DO Start : 30-Mar-2020 Complete cyclobenzaprine hydrochloride 10 mg oral tablet (4 sources) Muscle Relaxant Start: 09-14-2020 Cyclobenzaprin e HCl - 10 MG Oral Tablet Quantity: 60 Refills: 0 Ordered: 14-Sep-2020 DO Start : 14-Sep-2020 Complete ibuprofen 600 mg oral tablet (8 sources) Nonsteroidal Anti-inflammatory Drug Start: 09-14-2020 Ibuprofen 600 MG Ora l Tablet Quantity: 30 Refills: 0 Ordered: 14-Sep-2020 [...] omeprazole 20 mg delayed release oral capsule (13 sources) Proton Pump Inhibitor Start: 10-26-2019 take 1 capsule by mouth once daily Problems Active Problems Problem Classification Problem Date Documented Date Episodic/Chronic Aortic; peripheral; and visceral artery aneurysms (20 sources) Dilatation of aorta; Translations: [Aortic ectasia, unspecified site] Onset: 11-19-2022 Resolved: 03-28-2023 11-19-2022 Chronic Cardiac dysrhythmias (20 sources) Paroxysmal atrial fibrillation; Translations: [Atrial fibrillation] Onset: 04-16-2019 Resolved: 05-08-2023 02-27-2023 Chronic Cardiac dysrhythmias (13 sources) Sinus bradycardia; Translations: [Other specified cardiac dysrhythmias] Episodic Diabetes mellitus with complications (17 sources) Type 2 diabetes mellitus with hyperglycemia; Translations: [Hyperglycemia due to type 2 diabetes mellitus] Onset: 06-11-2022 Chronic Diabetes mellitus without complication (8 sources) Diabetes mellitus; Translations: [Diabetes mellitus without mention of complication, type II or unspecified type, not stated as uncontrolled] Chronic Disorders of lipid metabolism (11 sources) Hyperlipidemia; Translations: [Other and unspecified hyperlipidemia] Onset: 10-17-2021 Chronic Esophageal disorders (13 sources) Gastroesophageal reflux disease; Translations: [Gastro-esophageal reflux disease without esophagitis] Onset: 04-25-2017 02-27-2023 Chronic Essential hypertension (20 sources) Benign essential hypertension; Translations: [Benign essential hypertension] Onset: 04-25-2017 Resolved: 04-07-2023 02-27-2023 Chronic Gout and other crystal arthropathies (20 sources) Gout; Translations: [Gout, unspecified] Onset: 04-25-2017 02-27-2023 Chronic Heart valve disorders (20 sources) Aortic incompetence, non-rheumatic ; Translations: [Nonrheumatic aortic (valve) insufficiency] Onset: 11-19-2022 Resolved: 05-08-2023 12-09-2022 Chronic Nutritional deficiencies (13 sources) Vitamin D deficiency; Translations: [Vitamin D deficiency, unspecified] Onset: 04-25-2017 02-27-2023 Chronic Osteoarthritis (18 sources) Unilateral primary osteoarthritis, right hip; Translations: [Osteoarthritis] Onset: 04-25-2017 Chronic Other aftercare (15 sources) Drug therapy finding; Translations: [Long-term (current) use of other medications] Episodic Other aftercare (1 source) Other jail (current) drug therapy; Translations: [OTH HALF-WAY CURRENT DRUG THERAPY] Onset: 06-15-2022 Episodic Other aftercare (1 source) 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; Translations: [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] Onset: 02-27-2023 Episodic Other circulatory disease (2 sources) Personal history of other diseases of the circulatory system; Translations: [Personal history of other diseases of the circulatory system] Onset: 03-08-2024 Episodic Other lower respiratory disease (4 sources) Respiratory disorder, unspecified; Translations: [RESPIRATORY DISORDER UNSPECIFIED] Onset: 03-19-2022 Episodic Other male genital disorders (9 sources) Male erectile dysfunction, unspecified; Translations: [Impotence of organic origin] Onset: 04-07-2023 04-07-2023 Chronic Other male genital disorders (2 sources) Vasculopathic erectile dysfunction; Translations: [Male erectile dysfunction, unspecified] 01-06-2024 Chronic Other nervous system disorders (4 sources) Other [...] source) Obesity, unspecified; Translations: [OBESITY UNSPECIFIED] Onset: 03-25-2023 Chronic Other nutritional; endocrine; and metabolic disorders (1 source) Body mass index (BMI) 30.0-30.9, adult; Translations: [BODY MASS INDEX BMI 30.0-30.9 ADULT] Onset: 06-15-2022 Chronic Other upper respiratory disease (7 sources) Allergic rhinitis due to pollen; Translations: [Allergic rhinitis due to pollen] Onset: 07-07-2023 07-07-2023 Chronic Residual codes; unclassified (6 sources) Sleep apnea; Translations: [Sleep apnea, unspecified] Onset: 04-25-2017 02-27-2023 Chronic Residual codes; unclassified (7 sources) Obstructive sleep apnea syndrome; Translations: [Obstructive sleep apnea (adult) (pediatric)] Onset: 04-25-2017 04-07-2023 Chronic Residual codes; unclassified (2 sources) Other specified postprocedural states; Translations: [Other specified postprocedural states] Onset: 03-08-2024 Episodic Spondylosis; intervertebral disc disorders; other back problems (13 sources) Spondylosis without myelopathy or radiculopathy, lumbar region; Translations: [Other spondylosis with radiculopathy, cervical region] Onset: 07-12-2021 Chronic Unclassified (1 source) Aneurysm of the ascending aorta, without rupture; Translations: [Aneurysm of the ascending aorta, without rupture] Onset: 11-19-2022 Past or Other Problems Problem Classification Problem Date Documented Da te Episodic/Chronic Abdominal hernia (12 sources) Umbilical hernia; Translations: [Umbilical hernia without obstruction or gangrene] Onset: 02-27-2023 02-27-2023 Episodic Administrative/social admission (11 sources) Patient encounter status; Translations: [Persons encountering health services in other specified circumstances] Onset: 03-13-2023 Resolved: 04-07-2023 04-07-2023 Episodic Conditions associated with dizziness or vertigo (7 sources) Dizziness; Translations: [Dizziness and giddiness] Onset: 03-13-2023 Resolved: 04-07-2023 04-07-2023 Episodic Deficiency and other anemia (7 sources) Anemia; Translations: [Other specified anemias] Onset: 03-15-2023 03-15-2023 Episodic Mood disorders (7 sources) Mood disorders Onset: 02-28-2023 Resolved: 01-06-2024 02-28-2023 Nonspecific chest pain (12 sources) Chest pain; Translations: [Chest pain, unspecified] Onset: 11-19-2022 Resolved: 04-07-2023 11-19-2022 Episodic Other aftercare (13 sources) Long-term current use of anticoagulant; Translations: [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] Onset: 02-27-2023 02-27-2023 Episodic Other aftercare (3 sources) Long-term current use of drug therapy; Translations: [Other jail (current) drug therapy] Onset: 07-07-2023 07-07-2023 Episodic Other injuries and conditions due to external causes (12 sources) At low risk for fall; Translations: [History of falling] Onset: 02-27-2023 02-27-2023 Episodic Other lower respiratory disease (12 sources) Dyspnea; Translations: [Shortness of breath] Onset: 11-19-2022 Resolved: 04-07-2023 12-09-2022 Episodic Other non-traumatic joint disorders (5 sources) Pain in right hip; Translations: [PAIN IN RIGHT HIP] Onset: 08-02-2021 Episodic Other screening for suspected conditions (not mental disorders or infectious disease) (8 sources) Encounter for screening for malignant neoplasm of prostate; Translations: [Patient encounter status] Onset: 06-15-2022 07-07-2023 Episodic Other upper respiratory infections (7 sources) Acute sinusitis; Translations: [Other acute sinusitis] Onset: 04-07-2023 04-07-2023 Episodic Unclassified (15 sources) Never smoked tobacco; Translations: [Never a smoker] Results Test Name Value Interpretation Reference Range Facility Office Visiton 03-08-2024 Follow-up visit [id number] Roxann Johnson 1960 M Date Provider Department Center 03/08/2024 ANGELINE PAGAN EDGAR [facility] Family History Problem Relation Age of Onset Heart disease Mother Diabetes Mother Aneurysm Father Heart disease Father Aneurysm Brother Family Status - Relation Status Age at Mother Father Brother Level of Service:16750 [place] OFFICE/OUTPATIENT NEW MODERATE MDM 45 MINUTES Normal [facility] MLR HEMOGLOBIN A1Con 024 Glucose [Mass/Vol] 157 mg/dL [facility] HbA1c (Bld) [Mass fraction] 7.1 % High 4.5 - 6.2 % [facility] Comment on above: ADA RECOMMENDED LIMI T 4.0 - 6.0 ADA THERAPEUTIC TARGET < 7.0 ACTION SUGGESTED > 7.0 Interpretation and review of laboratory results Abnormal [facility] Physician Orderon 06-18-2023 Physician Order [id number] 1.00TIFF Normal [facility] [id number] 02-28-2023 [id number] DATE OF VISIT: PREOPERATIVE DIAGNOSIS: Severe aortic [...] left atrial appendage utilizing a 45 mm [employer]. SURGEON: David Black MD. WAREHOUSE TRAFFIC SUPERVISOR: FIDE Cueva ATTENDING ANESTHESIOLOGIST: ATTENDING PRIMARY CARE [...] Metabolic Panel; Status:Active - Retrospective Authorization; Requested for:[id number]; SocHx: Never a smoker Tobacco Use Screening; Status:Complete; Done: [id number] Patient Instructions Please bring all medicines, vitamins, [...] Signs Recorded: 12Sep2022 10:11AM Heart Rate52, Apical Ixiatzmi492, LUE, Sitting Xkcetjabc01, LUE, Sitting Height5 ft 11 in Nwdpyu993 lb BMI Fnkkhbsrnp01.84 kg/m2 BSA Calculated2.35 Tobacco Useb) No PHQ-2 #1. Over the last 2 weeks have you felt down, depressed or hopeless? (If yes, answer PHQ-9 below)No PHQ-2 #2. Over the last 2 weeks have you felt little interest or pleasure in (more content not included)... Normal [facility] Physician Orderon 09-12-2022 Physician Order [id number]#1. [id number]:127 Normal [facility] Tobacco Screening.on 023 Adult depression screening assessment No [facility] [employer] 600 DO Work Phone: Fall risk assessment a) No falls within the last year [facility] [employer] 600 DO Work Phone: Tobacco use status CPHS b) No [facility] 600 DO Work Phone: CBC AUTO DIFFon 06-11-2022 BASO # 0.1 103/ul Normal 0.0-0.1 [facility] Comment on above: Performed By: #### C BC #### [facility] [address] [address] [address] Doug Payne Basophils/100 WBC (Bld) 1.2 % Normal 0.2-2.0 [facility] Comment on above: Performed By: #### C BC #### [facility] [address] [address] [address] Doug Payne EO # 0.4 103/ul Normal 0.0-0.7 [facility] Comment on above: Performed By: #### C BC #### [facility] [address] [place] [address] Dr. Doug Payne Eosinophils/100 WBC (Bld) 5.5 % Normal 0.9-7.0 [facility] Comment on above: Performed By: #### C BC #### [facility] [address] [place] [address] Dr. Doug Payne Erythrocyte distribution width (RBC) [Ratio] 13.4 % Normal 11.0-15.0 [facility] Comment on above: Performed By: #### C BC #### [facility] [address] [place] [address] Dr. Doug Payne Hematocrit (Bld) [Volume fraction] 42.2 % Normal 42.0-54.0 [facility] Comment on above: Performed By: #### C BC #### [facility] [address] [place] [address] Dr. Doug Payne Hemoglobin (Bld) [Mass/Vol] 14.4 g/dL Normal 14.0-18.0 [facility] Comment on above: Performed By: #### C BC #### [facility] [address] [place] [address] Dr. Doug Payne IG # 0.02 10e3/ul Normal 0.00-0.03 [facility] Comment on above: Performed By: #### C BC #### [facility] [address] [place] [address] Dr. Doug Payne IG % 0.3 % Normal 0.0-0.5 [facility] Comment on above: Performed By: #### C BC #### [facility] [address] [place] [address] Dr. Doug Payne LYMPH # 2.8 103/ul Normal 1.2-3.8 [facility] Comment on above: Performed By: #### C BC #### [facility] [address] [place] [address] Dr. Doug Payne Lymphocytes/100 WBC (Bld) 42.8 % Normal 20.5-60.0 [facility] Comment on above: Performed By: #### C BC #### [facility] [address] [place] [address] Dr. Doug Payne MANUAL DIFF REQ NO Normal [facility] Comment on above: Performed By: #### C BC #### [facility] [address] [place] [address] Dr. Doug Payne MCH (RBC) [Entitic mass] 30.2 pg Normal 25.9-34.0 [facility] Comment on above: Performed By: #### C BC #### [facility] [address] [place] [address] Dr. Doug Payne MCHC (RBC) [Mass/Vol] 34.1 g/dL Normal 29.9-35.2 [facility] Comment on above: Performed By: #### C BC #### [facility] [address] [place] [address] Dr. Doug Payne MCV (RBC) [Entitic vol] 88.5 fL Normal 80.0-94.0 [facility] Comment on above: Performed By: #### C BC #### [facility] [address] [place] [address] Dr. Doug Payne MONO # 0.7 103/ul Normal 0.3-0.8 [facility] Comment on above: Performed By: #### C BC #### [facility] [address] [place] [address] Dr. Doug Payne Monocytes/100 WBC (Bld) 10.8 % Normal 1.7-12.0 [facility] Comment on above: Performed By: #### C BC #### [facility] [address] [place] [address] Dr. Doug Payne NEUT # 2.6 103/ul Normal 1.4-6.5 [facility] Comment on above: Performed By: #### C BC #### [facility] [address] [place] [address] Dr. Doug Payne Neutrophils/100 WBC (Bld) 39.4 % Critically low 43.0-75.0 [facility] Comment on above: Performed By: #### C BC #### [facility] [address] [place], [place] [address] Dr. Doug Payne Platelet mean volume (Bld) [Entitic vol] 9.0 fL Critically low 9.5-13.5 [facility] Comment on above: Performed By: #### C BC #### [facility] [id number] Doug Payne PLT 207 103/ul Normal 150-450 [facility] Comment on above: Performed By: #### C BC #### [facility] [address] [address] [address] Doug Payne RBC 4.77 106/ul Normal 4.70-6.10 [facility] Comment on above: Performed By: #### C BC #### [facility] [address] [address] [address] Doug Pyane WBC 6.5 103/ul Normal 4.0-11.0 [facility] Comment on above: Performed By: #### C BC #### [facility] [address] [address] [address] Doug Payne GLYCOHEMOGLOBIN A1Con 2022 ADA RECOMMENDATION SEE BELOW Normal [facility] Comment on above: Result Comment: ADA RECOMMENDED LIMIT 4.0 - 6.0 ADA THERAPEUTIC TARGET < 7.0 ACTION SUGGESTED > 7.0 Performed By: #### A 1C ####[facility] [address] [address]Dr. Doug Payne Glucose [Mass/Vol] 160 mg/dL Normal [facility] Comment on above: Performed By: #### A 1C ####[facility] [id number] [id number][address] Doug Payne HbA1c (Bld) [Mass fraction] 7.2 % Critically high 4.5-6.2 [facility] Comment on above: Performed By: #### A 1C ####[facility] [address] [address]Dr[address] Doug Payne LIPID PROFILEon 06-11-2022 CHOL-HDL RATIO NORM SEE BELOW Normal [facility] Comment on above: Result Comment: 3.3 - 4.4 LOW RISK 4.4 - 7.1 AVERAGE RISK 7.1 - 11.0 MODERATE RISK >11.0 HIGH RISK Performed By: #### T SH, LIPID, LIVER, BMP #### [facility] [address] [place] [address] Dr. Doug Payne Cholesterol [Mass/Vol] 121 mg/dL Normal <=200 [facility] Comment on above: Performed By: #### T SH, LIPID, LIVER, BMP #### [facility] [address] [place] [address] Dr. Doug Payne Cholesterol in HDL [Mass/Vol] 29 mg/dL Critically low 40-60 [facility] Comment on above: Performed By: #### T SH, LIPID, LIVER, BMP #### [facility] [address] [place] [address] Dr. Doug Payne Cholesterol in LDL [Mass/Vol] 68.4 mg/dL Normal [facility] Comment on above: Performed By: #### T SH, LIPID, LIVER, BMP #### [facility] [address] [place] [address] Dr. Doug Payne Cholesterol.total/C holesterol in HDL [Mass ratio] 4.2 {ratio} Normal [facility] Comment on above: Performed By: #### T SH, LIPID, LIVER, BMP #### [facility] [address] [place] [address] Dr. Doug Payne HDL NORMAL > or = 60 mg/dl - LO W CARDIOVASCULAR RISK <40 mg/dl - HIGH CARDIOVASCULAR RISK Normal [facility] Comment on above: Performed By: #### T SH, LIPID, LIVER, BMP #### [facility] [address] [place] [address] Dr. Doug Payne LDL CALC NORMAL SEE BELOW Normal [facility] Comment on above: Result Comment: <100 mg/dl OPTIMAL 100 - 129 mg/dl NEAR OR ABOVE OPTIMAL 130 - 159 mg/dl BORDERLINE HIGH 160 - 189 mg/dl HIGH >190 mg/dl VERY HIGH Performed By: #### T SH, LIPID, LIVER, BMP #### [facility] [address] [place] [address] Dr. Doug Payne Triglyceride [Mass/Vol] 118 mg/dL Normal <=150 [facility] Comment on above: Performed By: #### T SH, LIPID, LIVER, BMP #### [facility] [address] [address] [address] Doug Payne VLDL CALC 23.6 mg/dL Normal [facility] Comment on above: Performed By: #### T SH, LIPID, LIVER, BMP #### [facility] [address] [address] [address] Doug Payne LIVER PROFILEon 06-11-2022 Albumin [Mass/Vol] 4.0 g/dL Normal 3.4-5.0 [facility] Comment on above: Performed By: #### T SH, LIPID, LIVER, BMP #### [facility] [address] [place] [address] Dr. Doug Payne Albumin/Globulin [Mass ratio] 1.3 {ratio} Normal [facility] Comment on above: Performed By: #### T SH, LIPID, LIVER, BMP #### [facility] [address] [address] [address] Doug Payne ALP [Catalytic activity/Vol] 65 U/L Normal 46-116 [facility] Comment on above: Performed By: #### T SH, LIPID, LIVER, BMP #### [facility] [address] [place] [address] Dr. Doug Payne ALT [Catalytic activity/Vol] 36 U/L Normal 16-63 [facility] Comment on above: Performed By: #### T SH, LIPID, LIVER, BMP #### [facility] [address] [address] [address] Doug Payne AST [Catalytic activity/Vol] 24 U/L Normal 15-37 [facility] Comment on above: Performed By: #### T SH, LIPID, LIVER, BMP #### [facility] [address] [place] [address] Dr. Doug Payne BILI, CONJUGATED 0.1 mg/dL Normal 0.0-0.2 [facility] Comment on above: Performed By: #### T SH, LIPID, LIVER, BMP #### [facility] [address] [address] [address] Doug Payne Bilirubin [Mass/Vol] 0.3 mg/dL Normal 0.2-1.0 [facility] Comment on above: Performed By: #### T SH, LIPID, LIVER, BMP #### [facility] [address] [address] [address] Doug Payne Globulin (S) [Mass/Vol] 3.2 g/dL Normal [facility] Comment on above: Performed By: #### T SH, LIPID, LIVER, BMP #### [facility] [address] [address] [address] Doug Payne Protein [Mass/Vol] 7.2 g/dL Normal 6.4-8.2 [facility] Comment on above: Performed By: #### T SH, LIPID, LIVER, BMP #### [facility] [address] [address] [address] Doug Payne MICROALBUMIN, RAND URon 03-2 mALB 1.5 mg/L Normal <=30.0 [facility] Comment on above: Performed By: #### M ALBR ####[facility] [address] [address]Dr. Doug Payne PROF CHEM 8 (BAS METB)on Anion gap [Moles/Vol] 14.1 mmol/L Normal [facility] Comment on above: Performed By: #### T SH, LIPID, LIVER, BMP #### [facility] [address] [address] [address] Doug Payne Calcium [Mass/Vol] 9.1 mg/dL Normal 8.5-10.1 [facility] Comment on above: Performed By: #### T SH, LIPID, LIVER, BMP #### [facility] [address] [address] [address] Doug Payne Chloride [Moles/Vol] 105 mmol/L Normal 98-107 [facility] Comment on above: Performed By: #### T SH, LIPID, LIVER, BMP #### [facility] [address] [address] [address] Doug Payne CO2 [Moles/Vol] 25.0 mmol/L Normal 21.0-32.0 [facility] Comment on above: Performed By: #### T SH, LIPID, LIVER, BMP #### [facility] [address] [address] [address] Doug Payne Creatinine [Mass/Vol] 1.16 mg/dL Normal 0.70-1.30 [facility] Comment on above: Performed By: #### T SH, LIPID, LIVER, BMP #### [facility] [address] [address] [address] Doug Payne EGFR-AF KITTITIAN >60 Normal >=60 [facility] Comment on above: Performed By: #### T SH, LIPID, LIVER, BMP #### [facility] [address] [place] [address] Dr. Doug Payne EGFR-NON AF KITTITIAN >60 Normal >=60 [facility] Comment on above: Performed By: #### T SH, LIPID, LIVER, BMP #### [facility] [address] [address] [address] Doug Payne Glucose [Mass/Vol] 143 mg/dL Critically high 74-106 [facility] Comment on above: Performed By: #### T SH, LIPID, LIVER, BMP #### [facility] [address] [address] [address] Doug Payne Potassium [Moles/Vol] 4.1 mmol/L Normal 3.5-5.1 [facility] Comment on above: Performed By: #### T SH, LIPID, LIVER, BMP #### [facility] [address] [address] [address] Doug Payne Sodium [Moles/Vol] 140 mmol/L Normal 136-145 [facility] Comment on above: Performed By: #### T SH, LIPID, LIVER, BMP #### [facility] [address] [address] [address] Doug Payne Urea nitrogen [Mass/Vol] 21.0 mg/dL Critically high 7.0-18.0 [facility] Comment on above: Performed By: #### T SH, LIPID, LIVER, BMP #### [facility] [address] [place], [place] [address] Dr. Doug Payne Urea nitrogen/Creatinine [Mass ratio] 18.1 mg/mg Normal [facility] Comment on above: Performed By: #### T SH, LIPID, LIVER, BMP #### [facility] [address] [place], [place] [address] Dr. Doug Payne TSHon 06-11-2022 TSH 2.075 uIU/mL Normal 0.358-3.740 [facility] Comment on above: Performed By: #### T SH, LIPID, LIVER, BMP #### [facility] [id number] Doug Payne XR CHEST 2 Von [...] by: CECILIO OLVERA Date: 2022-03-19 17:32 Normal [facility] Office Visit (Cardiology)on 03-05-2022 Follow-up visit Diagnoses/Problems [...] Weight Tips; Status:Complete - Retrospective Authorization; Done: [id number] Some eating tips that can help you lose weight.; Status:Complete - Retrospective Authorization; Done: [id number] Essential hypertension, benign Renew: Lisinopril 40 MG Oral Tablet; TAKE 1 TABLET EVERY DAY Hyperlipemia Renew: Atorvastatin Calcium 10 MG Oral Tablet; take 1 tablet by mouth once daily Palpitations, Paroxysmal atrial fibrillation Renew: Atenolol 100 MG Oral Tablet; TAKE 1 TABLET DAILY IO EKG Electrocardiogram- 12 Lead; Status:Complete; Done: [id number] IO Event Monitor 30 days; Status:Active - Perform Order,Retrospective Authorization; Requested for:[id number]; SocHx: Never a smoker Tobacco Use Screening; Status:Complete; Done: [id number] Patient Instructions Please bring all medicines, vitamins, [...] claudication an (more content not included)... Normal [facility] Tobacco Screening.on Fall risk assessment a) [facility] the [facility] Work Phone: Tobacco use status [facility] b) No -[facility] 600 DO Work Phone: GLYCOHEMOGLOBIN A1Con 2021 ADA RECOMMENDATION SEE BELOW Normal [facility] Comment on above: Result Comment: ADA RECOMMENDED LIMIT 4.0 - 6.0 ADA THERAPEUTIC TARGET < 7.0 ACTION SUGGESTED > 7.0 Performed By: #### A 1C #### [facility] [address] [address] [address] Doug Payne Glucose [Mass/Vol] 137 mg/dL Normal [facility] Comment on above: Performed By: #### A 1C #### [facility] [address] [address] [address] Doug Payne HbA1c (Bld) [Mass fraction] 6.4 % Critically high 4.5-6.2 [facility] Comment on above: Performed By: #### A 1C #### [facility] [address] [address] [address] Doug Payne LIPID PROFILEon 10-17-2021 CHOL-HDL RATIO NORM SEE BELOW Normal [facility] Comment on above: Result Comment: 3.3 - 4.4 LOW RISK 4.4 - 7.1 AVERAGE RISK 7.1 - 11.0 MODERATE RISK >11.0 HIGH RISK Performed By: #### A LT, LIPID, AST ####[facility] [address] [id number]. Doug Payne Cholesterol [Mass/Vol] 112 mg/dL Normal <=200 [facility] Comment on above: Performed By: #### A LT, LIPID, AST ####[facility] [address] [address]DrMando Payne Cholesterol in HDL [Mass/Vol] 27 mg/dL Critically low 40-60 [facility] Comment on above: Performed By: #### A LT, LIPID, AST ####[facility] [address] [address]DrMando Payne Cholesterol in LDL [Mass/Vol] 58.4 mg/dL Normal [facility] Comment on above: Performed By: #### A LT, LIPID, AST ####[facility] [address] [address]Dr. Doug Payne Cholesterol.total/C holesterol in HDL [Mass ratio] 4.1 {ratio} Normal [facility] Comment on above: Performed By: #### A LT, LIPID, AST ####[facility] [address] [address]Dr. Doug Payne HDL NORMAL > or = 60 mg/dl - LO W CARDIOVASCULAR RISK <40 mg/dl - HIGH CARDIOVASCULAR RISK Normal [facility] Comment on above: Performed By: #### A LT, LIPID, AST ####[facility] [address] [address]Dr. Doug Payne LDL CALC NORMAL SEE BELOW Normal [facility] Comment on above: Result Comment: <100 mg/dl OPTIMAL 100 - 129 mg/dl NEAR OR ABOVE OPTIMAL 130 - 159 mg/dl BORDERLINE HIGH 160 - 189 mg/dl HIGH >190 mg/dl VERY HIGH Performed By: #### A LT, LIPID, AST ####[facility] [address] [address]Dr. Doug Payne Triglyceride [Mass/Vol] 133 mg/dL Normal <=150 [facility] Comment on above: Performed By: #### A LT, LIPID, AST ####[facility] [address] [address]Dr. Doug Payne VLDL CALC 26.6 mg/dL Normal [facility] Comment on above: Performed By: #### A LT, LIPID, AST ####[facility] [address] [address]Dr. Doug Payne SGOTon 10-17-2021 AST [Catalytic activity/Vol] 15 U/L Normal 15-37 [facility] Comment on above: Performed By: #### A LT, LIPID, AST ####[facility] [address] [address]Dr. Doug Payne SGPTon 10-17-2021 ALT [Catalytic activity/Vol] 23 U/L Normal 16-63 [facility] Comment on above: Performed By: #### A LT, LIPID, AST ####[facility] [address] [place], [place] [address]Zk. Doug Payne Office Visit (Cardiology)on 10-16-2021 Follow-up [...] in adult Healthy Weight Tips; Status:Complete; Done: [id number] Hyperlipemia ALT - Alanine Aminotransferase, Serum; Status:Active; Requested for:[id number]; AST; Status:Active; Requested for:[id number]; Lipid Panel; Status:Active; Requested for:52Gnb1266; SocHx: Never a smoker Tobacco Use Screening; Status:Complete; Done: [id number] Patient Instructions Please bring all medicines, vitamins, [...] negative for complaint. Vitals Vital Signs Recorded: [id number] 11:02AM Heart Rate60, R Radial Wrjzbiso638, RUE, Sitting Wvauhqsow61, RUE, Sitting Height5 ft 11 in Myvcis276 lb BMI Ocgktjsnxn34.57 kg/m2 BSA Calculated2.34 Tobacco Useb) No PHQ-2 [...] Oct 16 2021 11:35AM EST (Author) Normal [facility] Tobacco Screening.on 022 Adult depression screening assessment No [facility] [employer] DO Work Phone: Tobacco use status [facility] b) No [address] [place] [address] DO Work Phone: XR CSPINE OBL FLEX_EXTon [...] by: ADRI RODRIGUEZ Date: 2021-07-15 10:27 Normal [facility] Radiologyon 01-19-2021 CTA Chest vessels Normal [address] [address]A MA Work Phone: Laboratory - Chemistry and C hemistry - challengeon 01-12-2021 CO2 [Moles/Vol] 26 mmol/L Normal 21-31 [facility] 600 DO Work Phone: No Panel Informationon 01-12 14 {mEq/L} Normal 6-16 [facility] DO Work Phone: 100 mmol/L below low threshold 101-111 [facility] 600 DO Work Phone: 4.6 mmol/L Normal 3.5-5.3 [facility] 600 DO Work Phone: 135 mmol/L Normal 135-145 [facility] DO Work Phone: 9.2 mg/dL Normal 8.9-11.1 [facility] 600 DO Work Phone: 19 {No_Units} Normal 10-20 [facility] 600 DO Work Phone: 1.0 mg/dL Normal 0.5-1.3 [facility] DO Work Phone: 19 mg/dL Normal 5-21 [facility] DO Work Phone: 195 mg/dL Normal 55-199 [facility] DO Work Phone: Comment on above: If this glucose resu lt represents a fasting glucose, interpretation should refer to the following reference range: 55-99 mg/dL >60 Normal >=59 [facility] DO Work Phone: Comment on above: eGFR is race adjuste d. AA=. Chronic kidney disea se could be indicated at eGFR's of less than 60 mL/min/1.73m2. Kidney failure is indicated at less than 15 mL/min/1.73m2. Tobacco Screening.on 021 Tobacco use status [facility] b) No [facility] DO Work Phone: Cardiovascular Lab Reporton 04-29-2019 Cardiovascular Lab Report [facility] Patient Name: [facility] MR #: [id number] Physician: Angeline Hastings of Yadira Tucker Medicine Service Date: 04/28/2019 Division of Birthdate: 1960 Cardiology Room #: [facility] [address] [place] [address] Cardiovascular Laboratory Report PROCEDURE: Transesophageal echocardiogram and cardioversion. INDICATION: Atrial fibrillation. FELLOW: Summer Villasenor M.D. PROCEDURE IN DETAILS: An informed consent was obtained from the patient after explaining the indication, risks, and benefits, and alternatives. The patient understood and agreed and signed the consent form. The patient was brought [place] the [facility] and SIL was performed under conscious sedation. [...] complications throughout the procedure. Electronically Signed by: Angeline Tucker M.D. 05/02/2019 08:41 P Angeline Tucker M.D. I was present for the entire procedure. Date Dict: 04/28/2019/10:47 A/Summer Villasenor MD Date Trans: 04/29/2019 07:17 A/ronan [id number] cc: Caroline Blount, MSN, [employer]-C Department Of Surgery [address] [facility] [place] [address] Eugene Mariscal M.D. [facility] [facility] [address] Normal [facility] Vital Signs Date Time Vital Sign Value Performing Clinician Facility 01-06-2024 09:59-0400 Body height 180.3 cm Eugene Mariscal MD Work Phone: [facility] 01-06-2024 09:59-0400 Body mass index (BMI) [Ratio] 35.43 kg/m2 Eugene Mariscal MD Work Phone: [facility] 01-06-2024 09:59-0400 Body temperature 97.81 [degF] Eugene Mariscal MD Work Phone: [facility] 01-06-2024 09:59-0400 Body weight 115.21 kg Eugene Mariscal MD Work Phone: [facility] 01-06-2024 09:59-0400 Diastolic blood pressure 70 mm[Hg] Eugene Mariscal MD Work Phone: [facility] 01-06-2024 09:59-0400 Heart rate 71 /min Eugene Mariscal MD Work Phone: [facility] 01-06-2024 09:59-0400 Respiratory rate 18 /min Eugene Mariscal MD Work Phone: [facility] 01-06-2024 09:59-0400 SaO2% (BldA) [Mass fraction] 96 % Eugene Mariscal MD Work Phone: [facility] 01-06-2024 09:59-0400 Systolic blood pressure 130 mm[Hg] Eugene Mariscal MD Work Phone: [facility] 11-19-2023 10:14-0400 Body height 180.3 cm Eugene Mariscal MD Work Phone: [facility] 11-19-2023 10:14-0400 Body mass index (BMI) [Ratio] 35.01 kg/m2 Eugene Mariscal MD Work Phone: [facility] 11-19-2023 10:14-0400 Body temperature 97.5 [degF] Eugene Mariscal MD Work Phone: [facility] 11-19-2023 10:14-0400 Body weight 113.85 kg Eugene Mariscal MD Work Phone: [facility] 11-19-2023 10:14-0400 Diastolic blood pressure 78 mm[Hg] Eugene Mariscal MD Work Phone: [facility] 11-19-2023 10:14-0400 Heart rate 65 /min Eugene Mariscal MD Work Phone: [facility] 11-19-2023 10:14-0400 Respiratory rate 18 /min Eugene Mariscal MD Work Phone: [facility] 11-19-2023 10:14-0400 SaO2% (BldA) [Mass fraction] 97 % Eugene Mariscal MD Work Phone: [facility] 11-19-2023 10:14-0400 Systolic blood pressure 134 mm[Hg] Eugene Mariscal MD Work Phone: [facility] 03-28-2023 08:31-0500 Body height 180.3 cm Matthew Hood MD Work Phone: [facility] 03-28-2023 08:31-0500 Body mass index (BMI) [Ratio] 34.73 kg/m2 Matthew Hood MD Work Phone: [facility] 03-28-2023 08:31-0500 Body weight 112.95 kg Matthew Hood MD Work Phone: [facility] 03-28-2023 08:31-0500 Diastolic blood pressure 92 mm[Hg] Matthew Hood MD Work Phone: [facility] 03-28-2023 08:31-0500 Heart rate 86 /min Matthew Hood MD Work Phone: [facility] 03-28-2023 08:31-0500 SaO2% (BldA) [Mass fraction] 92 % Matthew Hood MD Work Phone: [facility] 03-28-2023 08:31-0500 Systolic blood pressure 126 mm[Hg] Matthew Hood MD Work Phone: [facility] 09-12-2022 10:11-0400 Body height 180.34 cm Eugene Mariscal Work Phone: [facility] 600 DO Work Phone: 09-12-2022 10:11-0400 Body mass index (BMI) [Ratio] 35.84 kg/m2 Eugene A Naderer Work Phone: [facility] 600 DO Work Phone: 09-12-2022 10:11-0400 Body surface area Derived from formula 2.35 m2 Eugene A Naderer Work Phone: [facility] 600 DO Work Phone: 09-12-2022 10:11-0400 Body weight 116.58 kg Eugene A Naderer Work Phone: [facility] [employer] 600 DO Work Phone: 09-12-2022 10:11-0400 Diastolic blood pressure 88 mm[Hg] Eugene A Naderer Work Phone: [facility] 600 DO Work Phone: 09-12-2022 10:11-0400 Heart rate 52 /min Eugene A Naderer Work Phone: [facility] 600 DO Work Phone: 09-12-2022 10:11-0400 Systolic blood pressure 138 mm[Hg] Eugene A Naderer Work Phone: [facility] 600 DO Work Phone: 03-05-2022 11:12-0500 Body height 180.34 cm Eugene A Naderer Work Phone: [facility] [employer] 600 DO Work Phone: 03-05-2022 11:12-0500 Body mass index (BMI) [Ratio] 36 kg/m2 Eugene A Naderer Work Phone: [facility] 600 DO Work Phone: 03-05-2022 11:12-0500 Body surface area Derived from formula 2.35 m2 Eugene Wills Naderer Work Phone: [facility] [employer] 600 DO Work Phone: 03-05-2022 11:12-0500 Body weight 117.09 kg Eugene A Naderer Work Phone: [facility] [employer] 600 DO Work Phone: 03-05-2022 11:12-0500 Diastolic blood pressure 80 mm[Hg] Eugene Wills Naderer Work Phone: [facility] [employer] 600 DO Work Phone: 03-05-2022 11:12-0500 Heart rate 52 /min Eugene Wills Naderer Work Phone: [facility] [employer] 600 DO Work Phone: 03-05-2022 11:12-0500 Systolic blood pressure 120 mm[Hg] Eugene Wills Naderer Work Phone: [facility] [employer] 600 DO Work Phone: 10-16-2021 11:02-0400 Body height 180.34 cm Eugene Wills Naderer Work Phone: [facility] [employer] 600 DO Work Phone: 10-16-2021 11:02-0400 Body mass index (BMI) [Ratio] 35.57 kg/m2 Eugene Wills Naderer Work Phone: [facility] [employer] 600 DO Work Phone: 10-16-2021 11:02-0400 Body surface area Derived from formula 2.34 m2 Eugene Wills Naderer Work Phone: [facility] [employer] 600 DO Work Phone: 10-16-2021 11:02-0400 Body weight 115.67 kg Eugene Wills Naderer Work Phone: [facility] 600 DO Work Phone: 10-16-2021 11:02-0400 Diastolic blood pressure 70 mm[Hg] Eugene A Naderer Work Phone: [facility] 600 DO Work Phone: 10-16-2021 11:02-0400 Heart rate 60 /min Eugene A Naderer Work Phone: [facility] 600 DO Work Phone: 10-16-2021 11:02-0400 Systolic blood pressure 128 mm[Hg] Eugene A Naderer Work Phone: [facility] 600 DO Work Phone: 01-12-2021 10:31-0400 Body height 180.34 cm Referring Provider Unknown [facility] 600 DO Work Phone: 01-12-2021 10:31-0400 Body mass index (BMI) [Ratio] 36.12 kg/m2 Referring Provider Unknown [facility] 600 DO Work Phone: 01-12-2021 10:31-0400 Body surface area Derived from formula 2.35 m2 Referring Provider Unknown [facility] 600 DO Work Phone: 01-12-2021 10:31-0400 Body weight 117.48 kg Referring Provider Unknown [facility] 600 DO Work Phone: 01-12-2021 10:31-0400 Diastolic blood pressure 88 mm[Hg] Referring Provider Unknown [facility] 600 DO Work Phone: 01-12-2021 10:31-0400 Heart rate 58 /min Referring Provider Unknown [facility] 600 DO Work Phone: 01-12-2021 10:31-0400 Systolic blood pressure 138 mm[Hg] Referring Provider Unknown [facility] 600 DO Work Phone: Encounters Encounter Date Encounter Type Care Provider Facility Start: 03-08-2024 End: 03-09-2024 ambulatory [facility] Start: 01-06-2024 End: 01-06-2024 Bamboo flowsheet Eugene Mariscal MD Work Phone: [facility] Start: 01-06-2024 End: 01-06-2024 Bamboo flowsheet Eugene Mariscal MD Work Phone: [facility] Start: 01-06-2024 End: 01-06-2024 Patient encounter procedure Eugene Mariscal MD Work Phone: [facility] Work Phone: Start: 01-06-2024 End: 01-06-2024 Postop follow up visit related to original px Eugene Mariscal MD Work Phone: [facility] Comment on above: Medicare annual well ness visit, subsequent (Primary Dx); Aneurysm of ascending aorta without rupture (CMS/HCC); Vasculogenic erectile dysfunction, unspecified vasculogenic erectile dysfunction type; Type 2 diabetes mellitus with other specified complication (CMS/HCC) Start: 01-06-2024 End: 01-06-2024 ambulatory EUGENE MARISCAL Not Available Start: 11-20-2023 End: 11-20-2023 Clinisync Result Encounter Eugene Mariscal MD Work Phone: [facility] Unsolicited Start: 11-20-2023 End: 11-20-2023 Clinisync Result Encounter Eugene Mariscal MD Work Phone: [facility] Unsolicited Start: 11-19-2023 End: 11-19-2023 Bamboo flowsheet Eugene Mariscal MD Work Phone: [facility] Start: 11-19-2023 End: 11-19-2023 Bamboo flowsheet Eugene Mariscal MD Work Phone: [facility] Start: 11-19-2023 End: 11-19-2023 Office outpatient visit 25 minutes Eugene Mariscal MD Work Phone: [facility] Comment on above: Type 2 diabetes barb itus with hyperglycemia, without long-term current use of insulin (CMS/HCC) (Primary Dx); Benign essential hypertension (CMS/HCC); Gouty arthritis; Paroxysmal atrial fibrillation (CMS/HCC); Aneurysm of ascending aorta without rupture (CMS/HCC); Body mass index (BMI) 35.0-35.9, adult; Type 2 diabetes mellitus with other specified complication (CMS/HCC); Male erectile dysfunction, unspecified Start: 11-19-2023 End: 11-19-2023 ambulatory EUGENE MARISCAL Not Available Start: 07-07-2023 End: 07-07-2023 ambulatory EUGENE MARISCAL Not Available Start: 05-13-2023 Telephone encounter Maryuri Macias RN [facility] Comment on above: overdue INR (1st att empt) Start: 05-03-2023 Refill Bertharober MOORE Work Phone: [facility]or[facility] Surgeons - [facility] Vill[facility] [place] Start: 04-07-2023 End: 04-07-2023 ambulatory EUGENE MARISCAL Not Available Start: 03-28-2023 End: 03-28-2023 ambulatory MATTHEW HOOD [facility] Start: 03-28-2023 End: 03-28-2023 Office outpatient visit 25 minutes Matthew Hood MD Work Phone: [facility] Comment on above: S/P AVR (aortic valv e replacement) (Primary Dx); Aneurysm of ascending aorta without rupture (CMS-HCC); Paroxysmal atrial fibrillation ([facility]-HCC); Anticoagulant long-term use Start: 03-27-2023 Telephone encounter Anna Colon CMA [facility] Start: 03-18-2023 Follow-up encounter Kay pinedo Work Phone: [facility] Medication Therapy Management Comment on above: S/P AVR (aortic valv e replacement) (Primary Dx); Atrial fibrillation Start: 03-13-2023 End: 03-13-2023 ambulatory FREDDY RACHIDHOLZ Not Available Start: 09-12-2022 End: 06-20-2023 Pre-admission assessment Phillip Ford [facility] Start: 09-12-2022 Office outpatient vi sit 25 minutes Eugene Mariscal Work Phone: [facility] 600 DO Work Phone: Start: 09-12-[address] Phillip Ford Facility: Start: 07-10-2022 Telephone encounter Eugene mooneyr Work Phone: [facility] 250 DO Work Phone: Start: 06-12-2022 Rx Renewal Eugene Mariscal Work Phone: [facility] 250 DO Work Phone: Start: 06-11-2022 End: 06-12-[address] EUGENE MARISCAL Facility:H1 Start: 04-15-[address] Phillip Ford Facility: Start: 03-19-2022 End: 03-20-2022 ambulatory SHAIKH Imelda ORTEGA Facility:H1 Start: 03-06-2022 EVENT MICHAEL, Provider : ALE TAMEZ CARPENTER/LABOR 1,[id number], Status: Pen, Time: 3:00 PM Eugene Mariscal Work Phone: [facility] 600 DO Work Phone: Start: 03-06-2022 Patient encounter procedure Eugene Mariscal Work Phone: [facility] 600 DO Work Phone: Start: 03-06-[address] Phillip Ford Facility: Start: 03-05-2022 Office outpatient vi sit 25 minutes Eugene Robertsonr Work Phone: [facility] 600 DO Work Phone: Start: 03-05-[address] Eugene Mariscal Facility: Start: 02-18-2022 Rx Renewal Eugene Mariscal Work Phone: [facility] 250 DO Work Phone: Start: 11-19-2021 End: 11-20-[address] EUGENE MARISCAL Facility:H1 Start: 10-17-2021 End: 10-18-[address] PHILLIP FORD Facility:H1 Start: 10-16-2021 Office outpatient vi sit 25 minutes Eugene Mariscal Work Phone: [facility] 600 DO Work Phone: Start: 10-16-[address] Phillip Ford Facility: Start: 08-15-2021 End: 08-16-[address] AILYN DEL VALLE . Facility:H1 Start: 07-31-2021 End: 07-31-[address] AILYN DEL VALLE . Facility:H1 Start: 07-13-2021 End: 07-14-[address] DOCTOR SIEGEL Facility:H1 Start: 07-12-2021 End: 07-13-[address] AILYN DEL VALLE . Facility:H1 Start: 06-20-2021 Rx Renewal Referring Prov ider Unknown [facility] 250 DO Work Phone: Start: 01-22-2021 Chart Update Referring Prov ider [facility] [place] Work Phone: Start: 01-12-2021 Chart Update Referring Prov ider [facility] 600 DO Work Phone: Start: 01-12-2021 Office outpatient vi sit 25 minutes Referring Provider Unknown [facility] DO Work Phone: Procedures Date Procedure Procedure Detail Performing Clinician Start: 11-20-2023 MLR HEMOGLOBIN A1C Eugene Mariscal MD Work Phone: Start: 03-28-2023 Follow-up visit Follow-up MATTHEW HOOD Start: 02-28-2023 Adult depression scr eening assessment Anna Colon [facility] Start: 06-11-2022 PSA screening SHAIKH KEVAN STALEY Comment on above: Performed By: #### P [facility] ####[facility] [address] [place], [place] [address]ZlMando Payne Start: 04-24-2019 Total colonoscopy Refer ring Provider Unknown Start: 04-09-2019 Colonoscopy Anna houston [facility] Cardiac catheterization Refe rring Provider Unknown Hernia repair Referring Prov ider Unknown Plan of Treatment Date Care Activity Detail Author Start: 06-15-2032 DTaP,Tdap and Td Vaccines (2 - Td or Tdap) DTaP,Tdap and Td Vaccines (2 - Td or Tdap) [facility] Start: 04-09-2029 Screening for malignant neoplasm of colon [facility] Start: 12-03-2025 Glaucoma screening Diabetes: Retinopathy Screening [facility] Start: 07-08-2024 Urine screening for protein Diabetes: Urine Protein Screening [facility] Start: 07-06-2024 End: 07-06-2024 Patient encounter procedure 07/06/2024 9:15 AM EDT Office Visit [facility] [address] [place] [address] Eugene Mariscal MD [address] [place] [address] [facility] Start: 05-21-2024 Hemoglobin A1c measurement Diabetes: Hemoglobin A1C [facility] Start: 03-28-2024 Adult BMI Screening Adult BMI Screening [facility] Start: 03-28-2024 Tobacco Screening Tobacco Screening [facility] Start: 03-11-2024 Adult BMI Screening Adult BMI Screening [facility] Start: 02-29-2024 Depression Screening Depression Screening [facility] Start: 02-29-2024 Tobacco Screening Tobacco Screening [facility] Start: 01-08-2024 Hemoglobin A1c measurement Diabetes: Hemoglobin A1C [facility] Start: 01-06-2024 End: 01-06-2024 Patient encounter procedure [facility] Comment on above: Arrived Start: 11-23-2023 Influenza vaccination Influenza Vaccine (#1) [facility] Start: 11-19-2023 End: 11-18-2024 Hemoglobin A1c/Hemoglobin.total in Blood Hemoglobin A1c Lab Routine Type 2 diabetes mellitus with hyperglycemia, without long-term current use of insulin ([facility]) Expected: 11/19/2023 (Approximate), Expires: 11/18/2024 [facility] Work Phone: Comment on above: Expected: 11/19/2023 (Approximate), Expi res: 11/18/2024 Start: 11-19-2023 End: 11-18-2024 Urate [Mass/volume] in Serum or Plasma Uric acid Lab Routine Gouty arthritis Expected: 11/19/2023 (Approximate), Expires: 11/18/2024 [facility] Comment on above: Expected: 11/19/2023 (Approximate), Expi res: 11/18/2024 Start: 11-19-2023 End: 11-19-2023 Patient encounter procedure 11/19/2023 10:15 AM EDT Office [facility] [address] [place] [address] Eugene Mariscal MD [address] [place] [address] [facility] Comment on above: Arrived Start: 10-06-2023 Glaucoma screening Diabetes: Retinopathy Screening [facility] Start: 06-24-2023 FUV, Provider: Phillip Ford, Status: Pen, Time: 9:10 AM FUV, Provider: Phillip Ford, Status: Pen, Time: 9:[address] [facility] 600 DO Work Phone: Start: 06-12-2023 Urine screening for protein Diabetes: Urine Protein Screening [facility] Start: 04-15-2023 End: 04-15-2023 Patient encounter procedure 04/15/2023 2:00 PM EST Appointment [facility] [address] [place] [id number] Matthew Hood MD [address] [place] [address] [facility] Start: 03-28-2023 End: 03-28-2024 Echo complete W/O contrast Echo complete W/O contrast Echocardiography Routine Aneurysm of ascending aorta without rupture ([facility]-HCC) S/P AVR (aortic valve replacement) Expected: 03/28/2023, Expires: 03/28/2024 [facility] Work Phone: Comment on above: Expected: 03/28/2023, Expires: Start: 03-28-2023 End: 03-28-2023 Patient encounter procedure 03/28/2023 8:45 AM EST Office Visit [facility] [address] [address] Matthew Hood MD [address] [place] [address] [facility] Start: 03-14-2023 Hemoglobin A1c measurement Diabetes: Hemoglobin A1C [facility] Start: 11-22-2022 Influenza vaccination Influenza Vaccine [facility] Start: 09-19-2022 FUV, Provider: Phillip Ford, Status: Pen, Time: 9:40 AM FUV, Provider: Phillip Ford, Status: Pen, Time: 9:40 AM [facility] 600 DO Work Phone: Start: 09-12-2022 FUV, Provider: Phillip Ford, Status: Pen, Time: 9:40 AM FUV, Provider: Phillip Ford, Status: Pen, Time: 9:40 AM [facility] 250 DO Work Phone: Start: 06-26-2022 FUV, Provider: Phillip Ford, Status: Pen, Time: 9:40 AM FUV, Provider: Phillip Ford, Status: Pen, Time: 9:40 AM [facility] 600 DO Work Phone: Start: 10-16-2021 FUV, Provider: Phillip Ford, Status: Pen, Time: 10:30 AM FUV, Provider: Phillip Ford, Status: Pen, Time: 10:30 AM [facility] 600 DO Work Phone: Start: 10-16-2021 FUV, Provider: Phillip Ford, Status: Pen, Time: 10:10 AM FUV, Provider: Phillip Ford, Status: Pen, Time: 10:10 AM [facility] DO Work Phone: Start: 1978 Adult BMI Follow Up Plan Adult BMI Follow Up Plan [facility] [employer] [facility] Start: 1978 Diabetic foot examination Diabetic Foot Exam [facility] [employer] [facility] Start: 1960 Glaucoma screening Diabetic Ophthalmology Exam [facility] Start: 1960 Medicare Annual Wellness (AWV) Medicare Annual Wellness (AWV) [facility] Start: 1960 Screening for malignant neoplasm of colon [facility] Start: 1960 Urine screening for protein Urine Microalbumin [facility] [employer] [facility] End: 09-26-2023 Ambulatory referral to Cardiac Rehabilitation ([facility]) Ambulatory referral to Cardiac Rehabilitation ([facility]) Card Rehab Routine Aneurysm of ascending aorta without rupture ([facility]-HCC) S/P AVR (aortic valve replacement) Per Treatment Plan for 36 Occurrences starting 03/28/2023 until 09/26/2023 [facility] [employer] [facility] Comment on above: Per Treatment Plan for [address] arting 03/28/2023 until 09/26/2023 Immunizations Immunization Date Immunization Notes Care Provider Kevan chowdary 09-08-2022 zoster vaccine recombinant [facility] Work Phone: 06-15-2022 tetanus toxoid, redu heidi diphtheria toxoid, and acellular pertussis vaccine, adsorbed Eugene Mariscal Work Phone: [facility] 600 DO Work Phone: 06-15-2022 zoster vaccine recombinant Eugene Mariscal Work Phone: [facility] 600 DO Work Phone: 02-19-2020 influenza, injectabl e, quadrivalent, preservative free Referring Provider Unknown [facility] 600 DO Work Phone: 02-19-2020 influenza virus vaccine, unspecified formulation Anna Colon [facility] 12-31-2019 influenza, seasonal, injectable Referring Provider Unknown [facility] 600 DO Work Phone: 12-22-2018 influenza, seasonal, injectable Referring Provider Unknown [facility] 600 DO Work Phone: 01-11-2018 influenza, injectabl e, quadrivalent, preservative free Referring Provider Unknown [facility] 600 DO Work Phone: 01-28-2016 influenza, injectabl e, quadrivalent, preservative free Referring Provider Unknown [facility] 600 DO Work Phone: Payers Date Payer Category Payer Medicare (Managed Care) [facility] MEDICARE [id number] 2022 Medicare [id number] 2021 Medicaid [id number] 2021 Medicare [id number]. [id number] 1960 Unknown [id number] 2.16.840.1.473962.3.579.2. 593 1960 Unknown [id number] 2.16.840.1.738187.3.579.2. 593 1960 Unknown [id number] 2.16.840.1.540087.3.579.2. 593 1960 Unknown [id number] 2.16.840.1.425712.3.579.2. 593 1960 Unknown [id number] 2.16.840.1.564225.3.579.2. 593 1960 Unknown [id number] 2.16.840.1.073707.3.579.2. 593 1960 Unknown [id number] 2.16.840.1.762394.3.579.2. 593 1960 Unknown [id number] 2.16.840.1.153572.3.579.2. 593 1960 Unknown [id number] 2.16.840.1.790271.3.579.2. 356 1960 Unknown [id number] 2.16.840.1.410620.3.579.2. 356 1960 Unknown [id number] 2.16.840.1.984715.3.579.2. 356 1960 Unknown [id number] 2.16.840.1.644261.3.579.2. 356 1960 Unknown [id number] 2.16.840.1.788862.3.579.2. 356 1960 Unknown [id number] 2.16.840.1.329990.3.579.2. 1286 1960 Unknown [id number] 2.16.840.1.637227.3.579.2. 1259 1960 Unknown [id number] 2.16.840.1.791214.3.579.2. 1259 1960 Unknown [id number] 2.16.840.1.726027.3.579.2. 1259 1960 Unknown [id number] 2.16.840.1.495634.3.579.2. 1259 1960 Unknown [id number] 2.16.840.1.382025.3.579.2. 1259 1959 Medicare [id number] 1959 Unknown [id number] Medicaid [id number] Unknown Social History Date Type Detail Facility Start: 02-28-2023 End: 11-19-2023 Caffeine use [facility] Work Phone: Comment on above: decaf coffee, caffei ne free soda; Start: 10-25-2022 End: 07-07-2023 Tobacco smoking status NHIS Never smoked tobacco [facility] Start: 10-25-2022 Tobacco use and exposure Forme r smokeless tobacco user [facility] End: 02-15-2018 History of tobacco use Chews Tobacco [facility] Start: 03-03-2023 End: 03-28-2023 Alcohol intake Ex-drinker (finding) [facility] Start: 02-28-2023 End: 11-19-2023 Alcohol Use Disorder Identification Test - Consumption [AUDIT-C] [facility] How often to you hav e a drink containing alcohol? Never [facility] How many standard dr inks containing alcohol do you have on a typical day? Patient does not drink [facility] Start: 1960 Sex Assigned At Not on file P [facility] Start: 07-07-2023 Tobacco use and exposure Smoke less tobacco non-user [facility] Start: 07-07-2023 End: 11-19-2023 Alcoholic beverage intake Lifetime non-drinker (finding) [facility] Medical Equipment Procedure Code Equipment Code Equipment Origin al Text Equipment Identifier Dates Valve Aor 11cm 2 6mm 36mm 23.4mm Onx Vascutek Glwv Vslv [facility] - [id number] - [id number] Start: 02-27-2023 USE 1 STRIP TO C HECK GLUCOSE ONCE DAILY [id number] Start: 12-08-2019 Check BS once a day [id number] Start : 04-03-2023 End: 04-02-2024 1 each in the morning. [id number] Start: 04-03-2023 Goals Date Patient Goal Desired Activity /State Personal health goal Comment on above: Formatting of this n ote might be different from the original. Evaluation of progress towards goal: return home with homecare and support Clinical Notes 07-12-2021 to 03-08-2024 Eugene Mariscal MD - 01/06/2024 10:23 AM Mohamud Mariscal MD - 01/06/2024 10:23 AM Mohamud Mariscal MD - 01/06/2024 10:21 AM Mohamud Mariscal MD - 01/06/2024 9:45 AM EDT Note Date & Type Note Facility 03-08-2024 Note [place] [facility] - [facility] Subjective Roxann Johnson is a 63 y.o. year old male patient being seen to establish care for aortic valve stenosis s/p AVR in Feb 2023 at [facility]. Says he does an hour at the gym 5 days a week and is able to do so without chest pain and SOB. He hasn't had echo or CTA since Oct 2022. Says he doesn't think his current dose of lisinopril is enough, since his BP has been elevated lately. Patient Active Problem List Diagnosis Anticoagulant long-term use Encounter for long-term (current) use of medications Aortic dilatation (CMS/HCC) Ascending aortic aneurysm (CMS/HCC) At low risk for fall Benign essential hypertension Chest pain DDD (degenerative disc disease), lumbar Diabetes mellitus (CMS/HCC) Erectile dysfunction Gastroesophageal reflux disease Gout Gouty arthritis High risk medication use Hyperlipemia Hypertension Nonrheumatic aortic valve insufficiency Obesity with body mass index (BMI) of 30.0 to 39.9 JUDD (obstructive sleep apnea) Osteoarthritis Other acute sinusitis Other specified anemias Palpitations Paroxysmal atrial fibrillation (CMS/HCC) S/P AVR (aortic valve replacement) Medicare annual wellness visit, subsequent Screening PSA (prostate specific antigen) Seasonal allergic rhinitis due to pollen Shortness of breath Sinus bradycardia Type 2 diabetes mellitus with hyperglycemia, without long-term current use of insulin (CMS/[facility]) Umbilical hernia without obstruction or gangrene Vitamin D deficiency Family History Problem Relation Name Age of Onset Heart disease Mother Diabetes Mother Aneurysm Father Heart disease Father Aneurysm Brother Social History Tobacco Use Smoking status: Never Smokeless tobacco: Former Substance Use Topics Alcohol use: Not Currently HPI Roxann is seen as a new patient to re-establish care. He used to see us in the past last visit on 08/13/2019. Recently he has been followed at [facility] cardiology where he had his cardiac surgery. He is a 63-year-old man who in February 2023 underwent aortic aneurysm repair with replacement of the aortic root and aortic valve replacement using a Bill aortic prosthesis with ligation of the left atrial appendage. According to the chart this was performed due to relatively rapid progression from 2019 to 2022. Of note his coronary angiogram was normal in November 2022. He has a family history of aneurysms. His prior medical history is significant for atrial fibrillation discovered around the time of endoscopy at the [facility]. He was started on anticoagulation at that time and underwent SIL guided cardioversion on 04/28/2019 and reverted to sinus rhythm. He has prior normal coronary angiography by cardiac catheterization in April 2017. Prior CT angiogram of the abdominal aorta did not show evidence of aneurysm. Postoperatively he did have atrial fibrillation and was placed on amiodarone and this was stopped later on. Today he reports that he has been doing reasonably well. He denies chest pain and shortness of breath. He does get fatigue with exertion. He has no lower extremity edema. He does not feel palpitations. His blood pressure has been elevated. He is currently on aspirin and warfarin and his INR is followed at the [facility]. Review of Systems Neurological: Positive for light-headedness. All other systems reviewed and are negative. Objective Visit Vitals BP (!) 154/92 (BP Location: Right arm, Patient Position: Sitting) Pulse 65 Ht 1.803 m (5' 11 ) Wt 116 kg (255 lb) SpO2 97% BMI 35.57 kg/m??? Smoking Status Never BSA 2.41 m??? Physical Exam Constitutional: Appearance: He is well-developed. He is obese. He is not ill-appearing. HENT: Head: Normocephalic and atraumatic. Nose: Nose normal. Eyes: General: No scleral icterus. Pupils: Pupils are equal, round, and reactive to light. Neck: Thyroid: No thyromegaly. Vascular: No JVD. Cardiovascular: Rate and Rhythm: Normal rate and regular rhythm. Pulses: Radial pulses are 2+ on the right side and 2+ on the left side. Heart sounds: No murmur heard. No friction rub. No gallop. Comments: Click of the metallic aortic prosthesis well heard Pulmonary: Effort: Pulmonary effort is normal. No respiratory distress. Breath sounds: Normal breath sounds. No wheezing or rales. Chest: Chest wall: No tenderness. Abdominal: General: Bowel sounds are normal. There is no distension. Palpations: Abdomen is soft. Tenderness: There is no abdominal tenderness. Musculoskeletal: General: No swelling. Cervical back: Neck supple. Skin: General: Skin is warm and dry. Neurological: General: No focal deficit present. Mental Status: He is alert and oriented to person, place, and time. Psychiatric: Mood and Affect: Mood normal. Behavior: Behavior is cooperative. Judgment: Judgment normal. Allergies No Known Aller (more content not included)... [facility] 01-06-2024 History of Presen t illness Narrative Associated Problem(s): Erectile dysfunction Use viagra PRN. Associated Problem(s): Ascending aortic aneurysm (CMS/HCC) Follow with specialist. Associated Problem(s): Medicare annual wellness visit, subsequent Reviewed labs. Discussed proper diet and regular aerobic exercise. Need aerobic exercise 5-6 days a week for 30 minutes at a time. Smaller portions and limit total calories. Colonoscopy every 10 years. Tetanus every 10 years. Advised not to smoke. Discussed daily Aspirin therapy. Images from the original note were not included. Subjective Patient ID: Roxann Johnson is a 63 y.o. male who presents for Medicare Annual Wellness Visit Subsequent. Presents for medicare annual wellness visit. Patient feels well today. Goes to the gym several days a week. Rides bike or walks and uses weights. Tries to watch diet and eat healthy. Increased fruits and vegetables. Smaller portions and limits snacking. Tries to limit total daily calories. Reviewed recent labs. Review of Systems Constitutional: Negative for fatigue. Respiratory: Negative for cough, shortness of breath and wheezing. Cardiovascular: Negative for chest pain and palpitations. Gastrointestinal: Negative for abdominal pain, diarrhea, nausea and vomiting. Genitourinary: Negative for dysuria. Objective Physical Exam Constitutional: General: He is not in acute distress. Appearance: Normal appearance. HENT: Head: Normocephalic. Right Ear: Tympanic membrane and ear canal normal. Left Ear: Tympanic membrane and ear canal normal. Eyes: Extraocular Movements: Extraocular movements intact. Pupils: Pupils are equal, round, and reactive to light. Cardiovascular: Rate and Rhythm: Normal rate and regular rhythm. Heart sounds: No murmur heard. No friction rub. No gallop. Pulmonary: Breath sounds: Normal breath sounds. No wheezing, rhonchi or rales. Abdominal: General: Bowel sounds are normal. There is no distension. Palpations: Abdomen is soft. Tenderness: There is no abdominal tenderness. There is no guarding or rebound. Musculoskeletal: General: Normal range of motion. Left lower leg: No edema. Neurological: General: No focal deficit present. Mental Status: He is alert. Cranial Nerves: No cranial nerve deficit. Deep Tendon Reflexes: Reflexes normal. Assessment/Plan Problem List Items Addressed This Visit Medicare annual wellness visit, subsequent - Primary Reviewed labs. Discussed proper diet and regular aerobic exercise. Need aerobic exercise 5-6 days a week for 30 minutes at a time. Smaller portions and limit total calories. Colonoscopy every 10 years. Tetanus every 10 years. Advised not to smoke. Discussed daily Aspirin therapy. documented in this encounter [facility] 11-19-2023 History of Presen t illness Narrative Associated Problem(s): Ascending aortic aneurysm (CMS/HCC) Follow with cardiology Associated Problem(s): Type 2 diabetes mellitus with hyperglycemia, without long-term current use of insulin (CMS/HCC) Reports BS controlled and due for A1C. Stick to ADA diet and limit carbs. Associated Problem(s): Paroxysmal atrial fibrillation (CMS/HCC) In NSR and rate controlled. Continue medication and follow up with cardiology. Associated Problem(s): Gouty arthritis Recent flare and continued pain. Treat with prednisone. Increase allopurinol. Check uric acid. Associated Problem(s): Benign essential hypertension (CMS/HCC) BP controlled and monitor PRN. Images from the original note were not included. Subjective Patient ID: Roxann Johnson is a 62 y.o. male who presents for Knee Pain (Gout pain in left knee). ER follow up from 11/15 for gout. Developed pain, redness and swelling in left knee. Knee red and warm to touch. Severe pain with walking and standing. To ER and given kenalog and percocet. Improved today and not red or warm but still painful. Swelling improved. Still pain to walk or stand. Concerned because multiple flares of gout in past year. Taking allopurinol daily. BS controlled 110-120. Slightly higher around 140 after steroids. Tries to eat well and stick to ADA diet and limit carbs. Denies signs of elevated BS such as polyuria, polyphagia or polydipsia. Checking BP PRN and typically controlled. BP normal today. Taking medication daily and tolerating without side effects. Afib stable. No palpitations or heart racing. Not lightheaded or dizzy. Review of Systems Constitutional: Negative for fatigue. Respiratory: Negative for cough, shortness of breath and wheezing. Cardiovascular: Negative for chest pain and palpitations. Gastrointestinal: Negative for abdominal pain, diarrhea, nausea and vomiting. Genitourinary: Negative for dysuria. Objective Physical Exam Constitutional: General: He is not in acute distress. Appearance: Normal appearance. HENT: Head: Normocephalic. Right Ear: Tympanic membrane and ear canal normal. Left Ear: Tympanic membrane and ear canal normal. Eyes: Extraocular Movements: Extraocular movements intact. Pupils: Pupils are equal, round, and reactive to light. Cardiovascular: Rate and Rhythm: Normal rate and regular rhythm. Heart sounds: No murmur heard. No friction rub. No gallop. Pulmonary: Breath sounds: Normal breath sounds. No wheezing, rhonchi or rales. Abdominal: General: Bowel sounds are normal. There is no distension. Palpations: Abdomen is soft. Tenderness: There is no abdominal tenderness. There is no guarding or rebound. Musculoskeletal: Left lower leg: No edema. Neurological: Mental Status: He is alert. Assessment/Plan Problem List Items Addressed This Visit Paroxysmal atrial fibrillation (CMS/HCC) In NSR and rate controlled. Continue medication and follow up with cardiology. Benign essential hypertension (CMS/HCC) BP controlled and monitor PRN. Gouty arthritis Recent flare and continued pain. Treat with prednisone. Increase allopurinol. Check uric acid. Relevant Medications predniSONE (Deltasone) 50 MG tablet allopurinol (Zyloprim) 300 MG tablet Other Relevant Orders Uric acid Type 2 diabetes mellitus with hyperglycemia, without long-term current use of insulin (CMS/HCC) - Primary Reports BS controlled and due for A1C. Stick to ADA diet and limit carbs. Relevant Orders Hemoglobin A1c documented in this encounter [facility] 05-13-2023 Miscellaneous Notes Pt on overdue INR list; attempted to call pt, however NA/NM.hrs [facility] encounter [facility]23 Telephone encounter Note Pt on overdue INR list; attempted to call pt, however NA/NM.hrs [facility] 03-28-2023 History of Presen t illness Narrative Roxann Mcmanus Danelle Date of visit: 03/28/2023 Date of : 1960 Age: 62 y.o. Patient Active Problem List Diagnosis Aneurysm of ascending aorta without rupture ([facility]) Nonrheumatic aortic valve insufficiency Atrial fibrillation Chest pain Shortness of breath Anticoagulant long-term use At low risk for fall Benign essential hypertension Gastroesophageal reflux disease Gout Obesity with body mass index (BMI) of 30.0 to 39.9 Osteoarthritis Sleep apnea Umbilical hernia without obstruction or gangrene Vitamin D deficiency S/P AVR (aortic valve replacement) Paroxysmal atrial fibrillation (CMS-HCC) No Known Allergies Current Outpatient Medications Medication [...] breath. Past Medical History: Diagnosis Date Aneurysm ([facility]) Aortic aneurysm ([facility]) Cardiovascular disease Diabetes mellitus ([facility]) Gout Hyperlipidemia Hypertension No data recorded No data recorded No data recorded Past Surgical History: Procedure Laterality Date . N/A 12/09/2022 Performed by Fredi Lechuga MD at [facility] ASCENDING AORTIC ANEURYSM REPAIR WITH REPLACEMENT OF AORTIC ROOT AND AORTIC VALVE REPLACEMENT -MODIFIED BENTALL PROCEDURE USING ON-X ASCENDING AORTIC PROSTHESIS/LIGATION OF ATRIAL APPENDAGE WITH 45MM PENDITURE CLAMP/SIL N/A 02/27/2023 Performed by David Black MD at [facility] Cardiac catheterization- CORS+RIGHT HEART+LV GRAM/PRESS (62659) with root injection N/A 12/09/2022 Performed by Fredi Lechuga MD at [facility] COLONOSCOPY Inject aortic root complete N/A 12/09/2022 Performed by Fredi Lechuga MD at [facility] Right heart cath N/A 12/09/2022 Performed by Fredi Lechuga MD at [facility] Family History Problem [...] mm Gelweave graft, modified Bental, On-X, ligation RAPLH 02/27/23, relatively rapid progression 2019 to 2022 [...] rehab but she wants to do through [place]. Ensure he is set up for [...] Referring Physician: Eugene Mariscal MD [address] [place] [address] Faxed referral for cardiac rehab to [facility] per pt request at [phone] Lmom for [facility] MTM regarding referral documented in this encounter [facility] 03-27-2023 Miscellaneous Notes Called patient to remind them to bring their most current copy of their medication list with them to their appt. Patient verbalizes understanding. documented in this encounter [facility] 03-27-2023 Telephone encounter Note Called patient to remind them to bring their most current copy of their medication list with them to their appt. Patient verbalizes understanding. [facility] 03-18-2023 History of Presen t illness Narrative Kate au/ Saman Campoverde lv. INR today: 2.3 PT today: 28.1 Contact pt w/ dosing instructions. Patient appeared on the 30 day OD INR report. Appears the patient was seen. See notes below. Noted. INR noted below was from >7 days ago thus no warfarin dose can be provided. [employer] reached out to Ray who confirms patient was discharged from services on 03/25/23. [employer] spoke to patient who confirms he remains on warfarin therapy and was under the impression his PCP was taking over his care so he can go to local hospital in [place] for INR checks. He has not had his INR checked recently, though. Explained to patient that INR recheck is needed and this can be completed at PM POC with our team or through his PCP if he prefers. Patient to reach out to PCP office on Friday04/14/23 when they re-open to confirm. If PCP unable to monitor, patient agreeable to [facility] POC appt next week. - Luann Rodgers, [facility] 04/11/23 2:58 PM Luann Rodgers, [facility] 04/11/23 1459 documented in this encounter [facility] Note Reason For Visit Indication palpitation [...] MD Enrollment sent to: [employer] Monitor number [id number] applied. Holter monitor printed and placed on Dr. Phillip Ford MD desk to dictate. Diagnosis/Problems Assessed Palpitations (785.1) (R00.2) Paroxysmal atrial fibrillation (427.31) (I48.0) Future Appointments Date/TimeProviderSpecialtySite 09/19/2022 09:40 Phillip Méndez, [id number] [facility] 3 600 DO Signatures Electronically signed by : Phillip Ford MD; Apr 15 2022 5:34PM EST (Author) [employer] 10-16-2021 History of Presen t illness Narrative [...] profile6. Follow-up in 9 months with EKG -[facility] 600 DO Work Phone: 08-15-2021 Note CONSULTATION [...] plan of care and all questions answered. [facility] Signed and Approved by: KATE TIM . 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 Sleeping [...] review cervical x-rays with him as wel IFC Signed and Approved by: KATE TIM . 07/18/2021 16:14:00 [facility] Evaluation + Plan note No data available for this section [facility] Evaluation note Diagnosis S/P AVR (aortic valve replacement)- Primary Heart valve replaced by other means Aneurysm of ascending aorta without rupture ([facility]) Paroxysmal atrial fibrillation ([facility]) Atrial fibrillation Anticoagulant long-term use Encounter for long-term (current) use of 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 [facility] Diagnosis S/P AVR (aortic valve replacement)- Primary Heart valve replaced by other means Atrial fibrillation [facility] Diagnosis Dizziness- Primary Dizziness and giddiness Atrial fibrillation, unspecified type ([facility]) S/P AVR (aortic valve replacement) Heart valve replaced by other means Primary hypertension ([facility]) Unspecified essential hypertension Encounter for support and coordination of transition of care Type 2 diabetes mellitus without complication, without long-term current use of insulin ([facility]) Type 2 diabetes mellitus with hyperglycemia, without long-term current use of insulin (CMS/HCC)- Primary Benign essential hypertension (CMS/HCC) Essential hypertension, benign Paroxysmal atrial fibrillation (CMS/HCC) Atrial fibrillation Gouty arthritis Gouty arthropathy, unspecified Acute non-recurrent sinusitis of other sinus Vasculogenic erectile dysfunction, unspecified vasculogenic erectile dysfunction type Type 2 diabetes mellitus with hyperglycemia, without long-term current use of insulin (CMS/HCC)- Primary Benign essential hypertension (CMS/HCC) Essential hypertension, benign Paroxysmal atrial fibrillation (CMS/HCC) Atrial fibrillation Seasonal allergic rhinitis due to pollen Gouty arthritis Gouty arthropathy, unspecified Vitamin D deficiency Encounter for long-term (current) use of medications Encounter for long-term (current) use of other medications Screening PSA (prostate specific antigen) Special screening for malignant neoplasm of prostate Obesity with body mass index (BMI) of 30.0 to 39.9 Type 2 diabetes mellitus with hyperglycemia, without long-term current use of insulin (CMS/HCC)- Primary Benign essential hypertension (CMS/HCC) Essential hypertension, benign Gouty arthritis Gouty arthropathy, unspecified Paroxysmal atrial fibrillation (CMS/HCC) Atrial fibrillation Aneurysm of ascending aorta without rupture (CMS/HCC) Body mass index (BMI) 35.0-35.9, adult Type 2 diabetes mellitus with other specified complication (CMS/HCC) Male erectile dysfunction, unspecified Medicare annual wellness visit, subsequent- Primary Aneurysm of ascending aorta without rupture (CMS/HCC) Vasculogenic erectile dysfunction, unspecified vasculogenic erectile dysfunction type Type 2 diabetes mellitus with other specified complication (CMS/HCC) [facility] Diagnosis Type 2 diabetes mellitus with hyperglycemia, without long-term current use of insulin (CMS/HCC)- Primary Benign essential hypertension (CMS/HCC) Essential hypertension, benign Gouty arthritis Gouty arthropathy, unspecified Paroxysmal atrial fibrillation (CMS/HCC) Atrial fibrillation Aneurysm of ascending aorta without rupture (CMS/HCC) Body mass index (BMI) 35.0-35.9, adult Type 2 diabetes mellitus with other specified complication (CMS/HCC) Male erectile dysfunction, unspecified [facility]* Patient is here for follow- up continue management for history of dilated aortic [...] to monitor his blood pressure closely [facility] 600 DO Work Phone: History of [...] him to monitor his blood pressure closely [facility] [place] DO Work Phone: Hospital Discharge instructions No data available for this section [facility] filedocumented in this [facility] filedocumented in this encounter [facility] filedocumented in this encounter [facility] on filedocumented in this [facility] No data available for this section [facility] (narrative)* Consultation (Routine) - Pending Review Specialty Diagnoses / Procedures Referred By Contac t Referred To Contact Cardiac Rehabilitation Diagnoses Aneurysm of ascending aorta without rupture ([facility]) S/P AVR (aortic valve replacement) Procedures Ambulatory referral to Cardiac Rehabilitation (Non[facility]) Matthew Hood MD [address] [place] [address] Referral ID Status Reason Start Date Expiration Date V isits Requested Visits Authorized [id number] Pending Review 03/28/2023 03/27/2024 36 36 * Cardiology (Routine) - Pending Review Specialty Diagnoses / Procedures Referred By Contac t Referred To Contact Diagnoses Aneurysm of ascending aorta without rupture (CMS-HCC) S/P AVR (aortic valve replacement) Procedures Echo complete W/O contrast Matthew Hood MD [address] [place] [address] Referral ID Status Reason Start Date Expiration Date V isits Requested Visits Authorized [id number] Pending Review 03/28/2023 03/27/2024 1 1 [employer] Summary Purpose Family History Unknown Family Member Name Dates Details Family [...] m ellitus: Mother(V18.0, Z83.3) Status:Active Advance Directives Latest Code Status on File Code Status Date Activated Date Inactivated Comments Full Code 02/27/2023 12:12 PM 03/04/2023 5:06 PM Latest Code Status on File Code Status Date Activated Date Inactivated Comments Full Code 02/27/2023 12:12 PM 03/04/2023 5:06 PM Chief Complaint ROXANN JOHNSON is being seen for a 9 month follow-up of.ROXANN KENNYPPS is being seen for a 9 month [...] section and content) DATE CREATED AUTHOR 08/07/2019 [facility] DATE CREATED AUTHOR AUTHOR'S ORGANIZ ATION 06/16/2022 [facility] DATE CREATED AUTHOR AUTHOR'S ORGANIZ ATION 09/13/2022 [facility] DATE CREATED AUTHOR AUTHOR'S ORGANIZ ATION 09/13/2022 [facility] DATE CREATED AUTHOR AUTHOR'S ORGANIZ ATION 03/10/2023 [facility] DATE CREATED AUTHOR AUTHOR'S ORGANIZ ATION 03/30/2023 [facility] DATE CREATED AUTHOR AUTHOR'S ORGANIZ ATION 06/19/2023 [facility] DATE CREATED AUTHOR AUTHOR'S ORGANIZ ATION 01/08/2024 [facility] DATE CREATED AUTHOR AUTHOR'S ORGANIZ ATION 03/10/2024 [facility] Reason for Visit (unrecogniz ed section and content) Reason Comments Follow-up post op 02/27/23 [facility] NDING AORTIC ANEURYSM REPAIR WITH REPLACEMENT OF AORTIC ROOT AND AORTIC VALVE REPLACEMENT -MODIFIED BENTALL PROCEDURE USING ON-X ASCENDING AORTIC PROSTHESIS/LIGATION OF ATRIAL APPENDAGE WITH 45MM PENDITURE CLAMP/SIL SCHED W/PT Reason Comments Med Refill Reason Onset Date Comments overdue INR (1st attempt) 05/13/2023 Reason Comments Medicare Annual Wellness Visit Subsequen t Reason Comments Knee Pain Gout pain in left kn ee Care Teams (unrecognized sec tion and content) 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 Relationship Specialty Start Date End Date Eugene Mariscal MD [address] [place] [address] PCP - General Family Medicine 08/16/20 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 Relationship Specialty Start Date End Date Eugene Mariscal MD [address] [place] [address] PCP - General Family Medicine 08/16/20 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 Relationship Specialty Start Date End Date Eugene Mariscal MD [address] [place] [address] PCP - [facility] 08/16/20 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 Relationship Specialty Start Date End Date Eugene Mariscal MD [address] [place] [address] PCP [facility] 08/16/20 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 Relationship Specialty Start Date End Date Eugene Mariscal MD [address] [place] [address] PCP - [facility] 07/07/23 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 Relationship Specialty Start Date End Date Eugene Mariscal MD [address] [place] [address] PCP [facility] 07/07/23 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 [facility] [employer] [facility]. provides no warranty or guarantee of the accuracy or completeness of information in this document.
== END 2024-04-21 15:01 | disposition home or self-care (01) ==
LOC: CARD 15:00
PROVIDERS: PCP Family Medicine; Visit Provider Internal Medicine Interventional Cardiology
DX: I48.0 Paroxysmal atrial fibrillation (principal); Z98.890 Other specified postprocedural states; Z86.79 Personal history of other diseases of the circulatory system; Z95.2 Presence of prosthetic heart valve
CPT/HCPCS: 93306

== ENCOUNTER 2024-04-26 02:24 | Outpatient (RCR) | payer OTHER, SELFPAY | END 2024-05-21 13:39 | disposition home or self-care (01) | LOC: MM 02:24 | PROVIDERS: PCP Family Medicine; Visit Provider Internal Medicine | DX: Z51.81 Encounter for therapeutic drug level monitoring (principal); Z79.01 Long term (current) use of 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; Z95.2 Presence of prosthetic heart valve | CPT/HCPCS: 85610; G0463 ==

== ENCOUNTER 2024-05-23 07:34 | Outpatient (RCR) | payer OTHER, SELFPAY | END 2024-06-18 13:16 | disposition home or self-care (01) | LOC: MM 07:34 | PROVIDERS: PCP Family Medicine; Visit Provider Internal Medicine | DX: Z51.81 Encounter for therapeutic drug level monitoring (principal); Z79.01 Long term (current) use of 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; Z95.2 Presence of prosthetic heart valve | CPT/HCPCS: 85610; G0463 ==

== ENCOUNTER 2024-06-22 05:47 | Outpatient (RCR) | payer OTHER, SELFPAY | END 2024-07-21 16:23 | disposition home or self-care (01) | LOC: MM 05:47 | PROVIDERS: PCP Family Medicine; Visit Provider Internal Medicine | DX: Z51.81 Encounter for therapeutic drug level monitoring (principal); Z79.01 Long term (current) use of 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; Z95.2 Presence of prosthetic heart valve | CPT/HCPCS: 85610; G0463 ==

== ENCOUNTER 2024-07-22 04:47 | Outpatient (RCR) | payer OTHER, SELFPAY | END 2024-08-20 15:34 | disposition home or self-care (01) | LOC: MM 04:47 | PROVIDERS: PCP Family Medicine; Visit Provider Internal Medicine | DX: Z51.81 Encounter for therapeutic drug level monitoring (principal); Z79.01 Long term (current) use of 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; Z95.2 Presence of prosthetic heart valve | CPT/HCPCS: 85610; G0463 ==

== ENCOUNTER 2024-08-22 07:26 | Outpatient (RCR) | payer OTHER, SELFPAY | END 2024-09-16 14:30 | disposition home or self-care (01) | LOC: MM 07:26 | PROVIDERS: PCP Family Medicine; Visit Provider Internal Medicine | DX: Z51.81 Encounter for therapeutic drug level monitoring (principal); Z79.01 Long term (current) use of 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; Z95.2 Presence of prosthetic heart valve | CPT/HCPCS: 85610; G0463 ==

== ENCOUNTER 2024-08-23 09:58 | Outpatient (OUT) | payer OTHER, SELFPAY ==
[2024-08-23 10:29] LABS: Creatinine Urine Random 163.43 mg/dL (20.00-300.00); Microalbumin Urine Random <1.3 mg/dL (<=30.0)
[2024-08-23 10:33] LABS: Eosinophils Percent Auto 0.3 % (0.9-7.0); Hematocrit 39.7 % (42.0-54.0); Hemoglobin 13.7 g/dL (14.0-18.0); Immature Granulocytes Abs Auto 0.01 10^3/uL (0.00-0.03); Immature Granulocytes Pct Auto 0.2 % (0.0-0.5); Lymphocytes Absolute Auto 1.9 10^3/uL (1.2-3.8); Lymphocytes Percent Auto 32.9 % (20.5-60.0); Mean Corpuscular HGB Conc 34.5 g/dL (29.9-35.2); Mean Corpuscular Hemoglobin 30.7 pg (25.9-34.0); Mean Platelet Volume 9.1 fL (9.5-13.5); Monocytes Absolute Auto 0.5 10^3/uL (0.3-0.8); Monocytes Percent Auto 9.2 % (1.7-12.0); Neutrophils Absolute Auto 3.4 10^3/uL (1.4-6.5); Neutrophils Percent Auto 57.4 % (43.0-75.0); Platelet Count 189 10^3/uL (150-450); Red Blood Count 4.46 10^6/uL (4.70-6.10); Red Cell Distribution Width 12.8 % (11.0-15.0); White Blood Count 5.9 10^3/uL (4.0-11.0)
[2024-08-23 10:42] LABS: Estimated Average Glucose 143 mg/dL; Glycohemoglobin A1C 6.6 % (4.5-6.2)
[2024-08-23 11:18] LABS: Alanine Aminotransferase 28 U/L (16-63); Albumin Globulin Ratio 1.3; Albumin Level 3.9 g/dL (3.4-5.0); Alkaline Phosphatase 73 U/L (46-116); Anion Gap 14.6; Aspartate Amino Transferase 23 U/L (15-37); BUN Creatinine Ratio 16.7; Bilirubin Direct 0.1 mg/dL (0.0-0.2); Bilirubin Total 0.5 mg/dL (0.2-1.0); Calcium 8.8 mg/dL (8.5-10.1); Carbon Dioxide 26.5 mmol/L (21.0-32.0); Chloride 106 mmol/L (98-107); Chol HDL Ratio 3.6; Cholesterol 112 mg/dL (<=200); Estimated GFR (African America >60 (>=60 mL/min/1.73m^2); Estimated GFR (Non-African Ame >60 (>=60 mL/min/1.73m^2); Globulin 2.9 g/dL; Glucose 94 mg/dL (74-106); HDL Cholesterol 31 mg/dL (40-60); Potassium 4.1 mmol/L (3.5-5.1); Sodium 143 mmol/L (136-145); Total Protein 6.8 g/dL (6.4-8.2); Triglycerides 169 mg/dL (<=150); VLDL CHOLESTEROL 33.8 mg/dL
[2024-08-23 12:28] LABS: Prostate Specific Antigen Scrn 0.37 ng/mL (<=4.00)
== END 2024-08-23 09:59 | disposition home or self-care (01) ==
LOC: LAB 09:59
PROVIDERS: PCP Family Medicine; Visit Provider Family Medicine
DX: E55.9 Vitamin D deficiency, unspecified (principal); E11.65 Type 2 diabetes mellitus with hyperglycemia; I10 Essential (primary) hypertension; Z79.899 Other long term (current) drug therapy; Z12.5 Encounter for screening for malignant neoplasm of prostate; E66.812 Obesity, class 2; E66.01 Morbid (severe) obesity due to excess calories; Z68.35 Body mass index [BMI] 35.0-35.9, adult
CPT/HCPCS: 36415; 80048; 80061; 80076; 82043; 82306; 82570; 83036; 84443; 85025; G0103

== ENCOUNTER 2024-09-21 02:32 | Outpatient (RCR) | payer OTHER, SELFPAY | END 2024-10-21 16:33 | disposition home or self-care (01) | LOC: MM 02:32 | PROVIDERS: PCP Family Medicine; Visit Provider Internal Medicine | DX: Z51.81 Encounter for therapeutic drug level monitoring (principal); Z79.01 Long term (current) use of 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; Z95.2 Presence of prosthetic heart valve | CPT/HCPCS: 85610; G0463 ==

== ENCOUNTER 2024-10-22 00:22 | Outpatient (RCR) | payer OTHER, SELFPAY | END 2024-11-18 12:34 | disposition home or self-care (01) | LOC: MM 00:22 | PROVIDERS: PCP Family Medicine; Visit Provider Internal Medicine | DX: Z51.81 Encounter for therapeutic drug level monitoring (principal); Z79.01 Long term (current) use of 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; Z95.4 Presence of other heart-valve replacement | CPT/HCPCS: 85610; G0463 ==

== ENCOUNTER 2024-11-22 02:04 | Outpatient (RCR) | payer OTHER, SELFPAY | END 2024-12-21 15:01 | disposition home or self-care (01) | LOC: MM 02:04 | PROVIDERS: PCP Family Medicine; Visit Provider Internal Medicine | DX: Z51.81 Encounter for therapeutic drug level monitoring (principal); Z79.01 Long term (current) use of 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; Z95.2 Presence of prosthetic heart valve | CPT/HCPCS: 85610; G0463 ==

== ENCOUNTER 2024-12-22 04:36 | Outpatient (RCR) | payer OTHER, SELFPAY | END 2025-01-21 23:59 | disposition home or self-care (01) | LOC: MM 04:36 | PROVIDERS: PCP Family Medicine; Visit Provider Internal Medicine | DX: Z51.81 Encounter for therapeutic drug level monitoring (principal); Z79.01 Long term (current) use of 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; Z95.2 Presence of prosthetic heart valve | CPT/HCPCS: 85610; G0463 ==

== ENCOUNTER 2025-01-25 11:06 | Outpatient (RCR) | payer OTHER, SELFPAY | END 2025-02-20 23:59 | disposition home or self-care (01) | LOC: MM 11:06 | PROVIDERS: PCP Family Medicine; Visit Provider Family Medicine | DX: Z51.81 Encounter for therapeutic drug level monitoring (principal); Z79.01 Long term (current) use of 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; Z95.2 Presence of prosthetic heart valve | CPT/HCPCS: 85610; G0463 ==

== ENCOUNTER 2025-02-21 11:44 | Outpatient (RCR) | payer OTHER, SELFPAY | END 2025-03-23 12:52 | disposition home or self-care (01) | LOC: MM 11:44 | PROVIDERS: PCP Family Medicine; Visit Provider Internal Medicine | DX: Z51.81 Encounter for therapeutic drug level monitoring (principal); Z79.01 Long term (current) use of 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; Z95.2 Presence of prosthetic heart valve | CPT/HCPCS: 85610; G0463 ==